=== PATIENT | female | born 1940 | race Caucasian/White ===

== ENCOUNTER 2017-11-10 12:47 | Inpatient (IN) ==
[2017-11-10 16:10] LABS: Basophils # (Auto) 0.1 K/mcL (0.0-0.3); Basophils % (Auto) 0.6 % (0.0-2.0); Eosinophils # (Auto) 0.3 K/mcL (0.0-0.7); Eosinophils % (Auto) 3.5 % (0.0-7.0); Granulocytes % (Auto) 59.2 % (38.0-78.0); Lymphocytes % (Auto) 30.7 % (15.5-49.0); Mean Cell Volume 90.6 fL (80.0-100.0); Mean Corpuscular HGB Conc 33.5 g/dL (31.0-36.0); Mean Corpuscular Hemoglobin 30.4 pg (26.0-34.0); Monocytes # (Auto) 0.6 K/mcL (0.1-0.9); Platelet Count 290 K/mcL (140-440); RBC 4.03 M/mcL (4.00-5.20); Red Cell Distribution Width 14.5 % (11.5-14.5)
[2017-11-10 16:50] LABS: ALT/SGPT 13 U/l (0-40); Albumin/Globulin Ratio 1.3 (1.0-2.3); Alkaline Phosphatase 137 U/L (39-117); Blood Urea Nitrogen 21 mg/dl (8-23)
[2017-11-10] MEDS ORDERED: PIPERACILLIN SODIUM/TAZOBACTAM 3.375 GM in DEXTROSE 5% IN WATER 50 ML IV SCH (17:00)
[2017-11-10] MEDS ORDERED: ACETAMINOPHEN 500 MG TABLET PO PRN (20:37)
[2017-11-10] MEDS ORDERED: HYDROcodone/APAP 5/325MG TABLET PO PRN (20:37)
--- NOTE | 2017-11-10 20:54 | Internal Medicine Consult Note ---
Medical - CN: HPI - Data of Consult Consult date: 11/10/17 Requesting Physician: Yanet Duarte Primary Care Provider: Lauren Casas MD Family Provider: ID DR Ninfa GAGE/REHAN - Consult Narrative Reason for consult: Medical Management History of present illness: Ms. Santoyo is a 77 year old F with h/o CAD/ AFib on pradaxa, h/o CHF, Obesity, admitted to the hospital for the right leg wound. The patient had h/o fall, in the bathroom last month, she was at [facility] for a unstable ankle fracture, she also had AFib with RVR during this episode The patient underwent open reduction and internal fixation of the right ankle fracture. The patient had a slow recovery it seems, hospitay stay also complicated with UTI. The patient at baseline is not very functional, poor balance, multiple falls, does nto ambulate much, attributes this to her Afib? The patient was eventually discharged back to a facility, it seems that post op no dressing changes were made as per patient. She developed the wound and was sent to the Wound care clinic for further evaluation. Admitted to the hospital from there The patient denies any acute complaints. CC: Yanet Duarte Review of systems: CONSTITUTIONAL: No weight loss, fever, chills, weakness or fatigue. HEENT: Eyes: No visual loss, blurred vision, double vision or yellow sclerae. Ears, Nose, Throat: No hearing loss, sneezing, congestion, runny nose or sore throat. SKIN: No rash or itching. CARDIOVASCULAR: No chest pain, chest pressure or chest discomfort. No palpitations or edema. RESPIRATORY: No shortness of breath, cough or sputum. GASTROINTESTINAL: No nausea, vomiting or diarrhea or constipation. No abdominal pain or blood in stools No Katia. GENITOURINARY: Denies Burning on urination. Blood in urine, or foul smelling urine NEUROLOGICAL: No headache, dizziness, syncope, paralysis, tremors, numbness or tingling in the extremities. No change in bowel or bladder control. MUSCULOSKELETAL: No muscle, back pain, joint pain or stiffness. HEMATOLOGIC: No bleeding or bruising. No enlarged nodes PSYCHIATRIC: No depression or anxiety. ENDOCRINOLOGIC: No reports of sweating, cold or heat intolerance. No polyuria or polydipsia. ALLERGIES: No hives, eczema or rhinitis. Skin: No rash, no jaundice, cyanosis or pallor. Medical - CN: H Medical history: PAST MEDICAL HISTORY: 1. obesity. 2. Recurrent episodes of hematuria, likely related to her recurrent bouts of urinary tract infections. 3. Recurrent urinary tract infections. 4. Restless leg syndrome. 5. Intertrigo. 6. Insomnia. 7. Prior episode of GI bleeding. 8. Reactive airways disease. 9. Esophageal stenosis. 10. Constipation. 11. Bilateral knee pain. 12. Osteoarthritis/degenerative joint disease. 13. Prior history of overdose with psychiatric hospitalizations. 14. Atrial fibrillation with a history of rapid ventricular response. 15. Congestive heart failure. 16. Peripheral vascular disease. 17. Diabetic polyneuropathy. 18. Depression. 19. Generalized anxiety disorder. 20. Type 2 diabetes mellitus. 21. Dyslipidemia. 22. Hypothyroidism. 23. Cardiac arrest associated with a hysterectomy. 24. Fatty liver infiltration. 25. Migraine headaches. 26. Gastroesophageal reflux disease. 27. Vertebral compression fracture. 28. Irritable bowel syndrome. 29. Diverticulosis with prior episodes of diverticulitis. 30. Urinary incontinence. 31. Coronary artery disease. 32. Candidal infection of the right breast and inguinal areas. 33. Anemia due to folic acid deficiency. 34. Edema. 35. Chronic pain. 36. Post-polio syndrome. 37. Personality disorder. 38. Fibromyalgia. 39. Childhood scarlet fever with a development of mitral valve prolapse. 40. Systemic lupus erythematosus. 41. Peptic ulcer disease. 42. Scleroderma. 43. Esophageal dyskinesia. 44. Vitamin D deficiency, nutritional in nature. Surgical history: 1. Status post vaginal cyst removal in 1970. 2. Left knee surgery in 1999. 3. Colonoscopies. 4. Bowel surgeries consisting of polypectomy and fissure repairs. 5. Total abdominal hysterectomy with bilateral salpingo-oophorectomy in 1975. 6. Cholecystectomy. 7. Tonsillectomy. 8. Breast cyst aspirations times 2. 9. Bilateral carpal tunnel releases. 10. Carpometacarpal joint surgery of the right hand. 11. Left hand surgery, unspecified. 12. Hemorrhoidectomy. 13. Cataract extracted in 2009. Family history: reviewed and not pertinent Social history: non smoker no etoh no recreational substance reported Medical - CN: Meds Home Medications Medication Instructions Recorded Confirmed Type ALPRAZolam [Xanax] 0.5 mg PO HS 11/10/17 11/10/17 History Acetaminophen [Shake That Ache] 500 mg PO Q4HP PRN 11/10/17 11/10/17 History Aspirin [Aspirin EC] 81 mg PO DAILY 11/10/17 11/10/17 History Benzonatate [Tessalon] 100 mg PO Q6HP PRN 11/10/17 11/10/17 History Cholecalciferol (Vitamin D3) 2,000 unit PO QAM 11/10/17 11/10/17 History [Vitamin D] Cyanocobalamin (Vitamin B-12) 1,000 mcg SL DAILY 11/10/17 11/10/17 History [Vitamin B-12] Dabigatran Etexilate Mesylate 150 mg PO BID 11/10/17 11/10/17 History [Pradaxa] Docusate Sodium [Colace] 100 mg PO QAM 11/10/17 11/10/17 History Ferrous Sulfate [Iron] 325 mg PO DAILY 11/10/17 11/10/17 History Folic Acid 1 mg PO DAILY 11/10/17 11/10/17 History Gabapentin 600 mg PO BID 11/10/17 11/10/17 History Gabapentin [Neurontin] 300 mg PO QNOON 11/10/17 11/10/17 History HYDROcodone/APAP 5/325MG [[place] 1 tab PO Q8HP PRN 11/10/17 11/10/17 History 5-325Mg] Inulin [Child's Fiber Select 1.5 gm PO QDAY 11/10/17 11/10/17 History Gummies] Levothyroxine [Synthroid] 75 mcg PO DAILY 11/10/17 11/10/17 History Loperamide [Imodium] 2 mg PO PRN PRN 11/10/17 11/10/17 History Magnesium Hydroxide [Milk of 30 ml PO DAILYP PRN 11/10/17 11/10/17 History Magnesia] Melatonin [Melatin] 3 mg PO HS 11/10/17 11/10/17 History Metoclopramide HCl [Metoclopramide 5 mg PO ACHS 11/10/17 11/10/17 History HCl Odt] Metoprolol Succinate [Toprol Xl] 25 mg PO DAILY 11/10/17 11/10/17 History Metoprolol Succinate [Toprol Xl] 100 mg PO QDAY 11/10/17 11/10/17 History Naproxen Sodium [All Day Pain 220 mg PO QDAY PRN 11/10/17 11/10/17 History Relief] Nortriptyline HCl [Pamelor] 150 mg PO HS 11/10/17 11/10/17 History Polyethylene Glycol 3350 [Miralax] 17 gm PO Q48 11/10/17 11/10/17 History Sodium Bicarbonate/Sodium Cit 2 each PO QDP PRN 11/10/17 11/10/17 History [[place] Heartburn Tab Eff] Spironolactone [Aldactone] 25 mg PO DAILY 11/10/17 11/10/17 History Vitamin E 200 unit PO DAILY 11/10/17 11/10/17 History guaiFENesin/D-METHORPHAN HB/PE 15 ml PO Q6HP PRN 11/10/17 11/10/17 History [Robafen Cf Liquid] Allergies Allergy/AdvReac Type Severity Reaction Status Date / Time atenolol [From Tenormin] Allergy Verified 11/10/17 16:46 ciprofloxacin [From Cipro] Allergy Verified 11/10/17 16:46 diltiazem [From Cardizem] Allergy Verified 11/10/17 16:46 meclizine Allergy Verified 11/10/17 16:46 morphine Allergy Verified 11/10/17 16:46 promethazine Allergy Verified 11/10/17 16:46 sulfamethoxazole Allergy Verified 11/10/17 16:46 [From Bactrim] trimethoprim [From Bactrim] Allergy Verified 11/10/17 16:46 acyclovir AdvReac Verified 11/10/17 16:46 nitrofurantoin AdvReac Verified 11/10/17 16:46 [From Macrobid] rosuvastatin [From Crestor] AdvReac Verified 11/10/17 16:46 Medical - CN: Exam - Constitutional Vitals: Temp Pulse Resp BP Pulse Ox 97.0 F 92 H 16 145/87 96 11/10/17 16:00 11/10/17 16:00 11/10/17 16:00 11/10/17 16:00 11/10/17 16:00 Exam: GENERAL: The patient is a well-developed, obese, well-nourished in no apparent distress. Is alert and oriented x3. VITAL SIGNS: Reviewed and as noted elsewhere. HEENT: Head is normocephalic and atraumatic. Extraocular muscles are intact. Pupils are equal, round, and reactive to light. Nares appeared normal. Mouth appears any without lesions. Mucous membranes are moist. NECK: Normal to inspection, Supple, No lymphadenopathy or thyromegaly. LUNGS: Air entry equal on both sides, no wheezing, crackles or rhonchi noted. No accessory muscles of respiration HEART: Regular rate and rhythm irregular, S1 and S2 heard, no Gallop, S3 or Rub Noted, No Gross murmur heard. ABDOMEN: Soft, nontender, and nondistended. Positive bowel sounds. No hepatosplenomegaly was noted. EXTREMITIES: No cyanosis, clubbing, rash, lesions or edema. (right foot covered in dressing, noted wound lower medial part). NEUROLOGIC: Cranial nerves II through XII are grossly intact. Motor and Sensory System Grossly Intact PSYCHIATRIC: Normal affect, Normal Mood. Appropriate Behavior. SKIN: No ulceration or wounds noted, No jaundice, No rash noted. Medical - CN: Result - Labs CBC & Chem 7: 11/10/17 15:40 11/10/17 15:40 Labs: Short CBC 11/10/17 Range/Units 15:40 WBC 9.9 (4.5-11.0) K/mcL Hgb 12.3 (12.0-15.0) g/dL Hct 36.5 (36.0-48.0) % Plt Count 290 (140-440) K/mcL BMP 11/10/17 15:40 Sodium 140 Potassium 4.0 Chloride 100 Carbon Dioxide 25 BUN 21 Creatinine 1.0 Glucose 95 Calcium 10.0 Liver Function 11/10/17 Range/Units 15:40 Total Bilirubin 0.4 (0.0-1.0) mg/dL AST 13 (0-37) U/l ALT 13 (0-40) U/l Alkaline Phosphatase 137 H (39-117) U/L Albumin 4.0 (3.2-5.2) gm/dL Medical - CN: A/P - Narrative A/P Narrative: A/P Right lower extremity wound- Management per Surgery/ Wound care Atrial fibrillation- rate controlled, c heck tsh, on pradaxa continue same, continue metoprolol for rate control, will use IV prn as needed CAD/CHF- on metoprolol, asa, and aldactone continue same, no active issues. DM- borderline diet controlled anxiety/depression- on xanax prn Lupus_ does not seem to be on any medication for same DM neuropathy/chr pain- continue home pain medications. Will follow along while in the hospital,
[2017-11-10] MEDS ORDERED: ALPRAZolam 0.5 MG TABLET PO SCH (21:00)
[2017-11-10] MEDS ORDERED: NORTRIPTYLINE 25 MG CAPSULE PO SCH (21:00)
[2017-11-10] MEDS ORDERED: MELATONIN 3 MG PO SCH (21:00)
[2017-11-10] MEDS: GABAPENTIN 300 MG CAPSULE PO SCH (21:40)
[2017-11-10] MEDS: DABIGATRAN ETEXILATE MESYLATE 75 MG CAPSULE PO SCH (21:41)
[2017-11-10] MEDS: METOCLOPRAMIDE 10 MG TABLET PO SCH (21:41)
[2017-11-10] MEDS: 0.9 % SODIUM CHLORIDE 10 ML SYRINGE IV SCH (21:43)
[2017-11-10] MEDS: PIPERACILLIN SODIUM/TAZOBACTAM 3.375 GM in DEXTROSE 5% IN WATER 50 ML IV SCH (23:32)
[2017-11-11] MEDS ORDERED: ONDANSETRON 4 MG/2 ML VIAL IV PRN ×3 (00:24→12:25)
[2017-11-11] MEDS ORDERED: ONDANSETRON 4 MG/2 ML VIAL ONE (00:32)
[2017-11-11 04:59] LABS: Basophils # (Auto) 0.1 K/mcL (0.0-0.3); Basophils % (Auto) 0.6 % (0.0-2.0); Eosinophils # (Auto) 0.3 K/mcL (0.0-0.7); Eosinophils % (Auto) 3.7 % (0.0-7.0); Lymphocytes # (Auto) 2.3 K/mcL (1.5-4.8); Lymphocytes % (Auto) 25.3 % (15.5-49.0); Mean Cell Volume 91.5 fL (80.0-100.0); Mean Corpuscular HGB Conc 33.4 g/dL (31.0-36.0); Mean Corpuscular Hemoglobin 30.6 pg (26.0-34.0); Monocytes # (Auto) 0.6 K/mcL (0.1-0.9); Monocytes % (Auto) 6.4 % (1.0-12.0); Platelet Count 269 K/mcL (140-440); RBC 3.66 M/mcL (4.00-5.20); Red Cell Distribution Width 14.7 % (11.5-14.5)
[2017-11-11] MEDS: PIPERACILLIN SODIUM/TAZOBACTAM 3.375 GM in DEXTROSE 5% IN WATER 50 ML IV SCH ×3 (06:02→22:05)
[2017-11-11] MEDS: 0.9 % SODIUM CHLORIDE 10 ML SYRINGE IV SCH ×3 (06:03→20:36)
--- NOTE | 2017-11-11 06:28 | General Surgery Progress Note ---
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 Chief Complaint: [] Patient resting in bed. No complaints overnight except pain in right lower leg at wound site. Vital Signs Temp Pulse Resp BP Pulse Ox 97.5 F 99 H 20 104/73 97 11/11/17 04:19 11/10/17 23:51 11/11/17 04:19 11/11/17 04:19 11/11/17 04:19 Period Temp Pulse Resp BP Sys/Ennis Pulse Ox Last 24 Hr 97.0 F-98.9 F 92-99 16-20 88-145/67-87 96-98 Intake and Output 11/10/17 11/11/17 11/11/17 21:59 05:59 13:59 Intake Total 410 / 410 50 / 50 Balance 410 / 410 50 / 50 Weight 219 lb 8 oz PE: No distress Chest: clear in upper echevarria CV: irregularly irregular EXT:Right lower medial leg CBC and Chem 7 11/11/17 04:15 A/P: Right lower extremity wound with overlying eschar and area of palpable fluctuance. Plan to OR for debridement of wound. Risks and benefits and alternatives to surgery reviewed with patient and she verbalizes understanding and wishes to proceed.
--- NOTE | 2017-11-11 07:27 | History and Physical Report ---
DATE OF ADMISSION: 11/10/2017 CHIEF COMPLAINT: Right lower extremity wound, failed outpatient treatment. HISTORY OF PRESENT ILLNESS: The patient is a 77-year-old woman who was seen in wound care clinic today in consultation for right lower extremity wound. The patient has a recent medical and surgical history significant for a right ankle fracture suffered on the or 01 of October this year. The patient was trying to get into her shower at which time she fell down and landed on her right ankle. When she was helped up evaluation at the long term showed that she clearly had a fracture of her ankle. She was transferred eventually to [facility] where she was seen and evaluated by Dr. Turpin and subsequently taken to the operating room on 10/03/2017 for open reduction and internal fixation of a bimalleolar fracture dislocation of the right ankle. The patient states that she was discharged from [facility] to a rehab care facility where she has been since her discharge. The patient was accompanied at the clinic visit by her daughter who also offered part of the history of current problem. The patient during her postoperative 2 weeks had not had any care done to her wounds and states that the dressing that was placed postoperatively remained in place. When she was seen in clinic in the orthopedist's office she was noted to have a large eschar on the medial aspect of the distal right lower leg. She was, at that visit told that she would be referred to wound care clinic urgently for evaluation and treatment. Unfortunately, there was some delay in getting the referral consultation visit set up and she was not seen until today at which time evaluation showed a large eschar with some localized cellulitis surrounding it in the area of the distal right lower leg medially. The patient has been on oral antibiotic therapy of doxycycline and cephalexin for this. She reports pain in the area of the wound. She denies chills or fever. She does report that she has been a weak. She has had in the postoperative boot on for most of the time since surgery and questions whether this may be contributing to the problem of her wound. Review of patient's previous records that accompany her at the clinic visit showed that Dr. Turpin noted a fracture blister on the distal medial tibia proximal to the medial malleolus at the time of presentation but no evidence of skin breakdown beyond the blister formation. PAST MEDICAL HISTORY: History of atrial fibrillation with rapid response, diabetes mellitus type 2, hypothyroidism, anxiety, hyperlipidemia, osteoarthritis, history of gastroesophageal reflux disease, history of urinary incontinence, hypothyroidism. PAST SURGICAL HISTORY: Total abdominal hysterectomy in 1975, cholecystectomy, tonsillectomy, bilateral carpal tunnel release, cataract surgery, hemorrhoidectomy. REVIEW OF SYSTEMS: CONSTITUTIONAL: Denies fevers or chills; reports general weakness. CARDIOVASCULAR: Reports history of atrial fibrillation with at times of fast heart rate. Denies any recent increases in heart rate or rapid heart rate since her ankle surgery. Denies chest pain or pressure. : Denies dysuria or hematuria. GI: No nausea or vomiting. Appetite is good. HEMATOLOGIC: The patient is currently on Pradaxa for treatment of her atrial fibrillation. ALLERGIES: MORPHINE, BACTRIM, PROMETHAZINE, CARDIZEM, TENORMIN, CIPROFLOXACIN, MECLIZINE, ACYCLOVIR, MACROBID, CRESTOR. MEDICATIONS: 1. Xanax 0.5 mg p.o. at bedtime. 2. Aspirin 81 mg daily. 3. Vitamin D3 2000 units q.a.m. 4. Vitamin B12 1000 mcg sublingual daily. 5. Pradaxa 150 mg p.o. b.i.d. 6. Colace 100 mg p.o. q.a.m. 7. Iron sulfate 325 mg daily. 8. Folate 100 mg daily. 9. Gabapentin 600 mg p.o. b.i.d. and 300 mg at noon. 10. [place] 5/325 mg #1tablet q.8 hours p.r.n. pain. 11. Synthroid 75 mcg daily. 12. Metoclopramide 5 mg at bedtime q.a.c. and at bedtime. 13. Metoprolol 100 mg p.o. every day and 25 mg every day. 14. Naprosyn 220 mg every day p.r.n. pain. 15. Pamelor 150 mg at bedtime. 16. MiraLax 17 grams p.o. q.48h. 17. Spironolactone 25 mg p.o. every day. PHYSICAL EXAMINATION: VITAL SIGNS: Temperature 97.0, pulse 92, respirations 16, blood pressure 145/87, O2 saturations are 96% on room air. GENERAL: The patient is a well-developed, well-nourished, obese, elderly woman who appears her stated age in no distress. HEENT: Head normocephalic. Sclerae are white. Mucous membranes are moist. CHEST: Breath sounds are clear bilaterally. No rales, wheezes are heard. CARDIOVASCULAR: Irregularly irregular rhythm, slightly tachycardic rate. ABDOMEN: Soft and nontender. EXTREMITIES: DP pulses are palpable bilaterally. There is a large wound on the distal right lower leg on the medial aspect just above the medial malleolar incision site. The incision itself is intact and appears to be healing well without sign of infection. On the area of the large wound there is an overlying eschar which in some areas feels firm and in other areas feels questionably fluctuant versus underlying subcutaneous fatty tissue. There is no active drainage coming from the edges of the wound, though a small amount of bleeding is noted in two areas with palpation of the eschar. Palpation of the area results in tenderness to the patient. The patient does also complain of pain in the area of her perez that has been progressive since surgery. There is a small amount of erythema surrounding the edges of the large wound that suggest localized cellulitis of the area. Wound edges are well demarcated and eschar overlying the wound appears to be a full thickness of the dermis. The patient is able to feel pressure beneath the eschar, but does not feel actual sensation to light touch on the eschar. ASSESSMENT AND PLAN: Right lower extremity wound of uncertain behavior. On examination, the area is tender. Questionable areas that by palpation suggest there could be underlying fluid collection kasandra abscess is not obvious on this clinical evaluation. Surrounding erythema suggests ongoing cellulitis despite oral medications that have been tried. Given the proximity of this wound to an area of recent fracture repair containing hardware there is concern that if there is underlying infection that is not appropriately addressed this could spread to the hardware that is present in the right ankle. Recommendation is that patient be started on IV antibiotics with plans for debridement of this wound to see if there is underlying ongoing infection that needs more aggressive manage rather than just topical wound care. I discussed this with the patient and her daughter was present throughout today's clinic visit. I also contacted Dr. Turpin, her orthopedic surgeon and discussed the case with him. He is in agreement with this plan. The patient is admitted for failed outpatient management of right lower extremity wound with plans to debride the area to define the full nature and character of this wound with subsequent plans for more definitive therapy. RC:callum Job ID: [id number] Doc ID: [id number] Yanet Duarte MD
[2017-11-11] MEDS: METOCLOPRAMIDE 10 MG TABLET PO SCH ×4 (07:29→20:34)
[2017-11-11] MEDS ORDERED: LEVOTHYROXINE 75 MCG TABLET PO SCH (07:30)
[2017-11-11] MEDS ORDERED: CYANOCOBALAMIN (VITAMIN B-12) 500 MCG TABLET PO SCH (09:00)
[2017-11-11] MEDS ORDERED: METOPROLOL SUCCINATE 50 MG TAB.XL.24H PO SCH (09:00)
[2017-11-11] MEDS ORDERED: SILVER SULFADIAZINE CREAM.TOP 25GM TOPICAL SCH (09:00)
[2017-11-11] MEDS ORDERED: FOLIC ACID 1 MG TABLET PO SCH (09:00)
[2017-11-11] MEDS ORDERED: SPIRONOLACTONE 25 MG TABLET PO SCH (09:00)
[2017-11-11] MEDS ORDERED: DOCUSATE SODIUM 100 MG CAPSULE PO SCH (09:00)
[2017-11-11] MEDS ORDERED: METOPROLOL SUCCINATE 25 MG TAB.XL.24H PO SCH (09:00)
[2017-11-11] MEDS ORDERED: ASPIRIN 81 MG TAB.CHEW PO SCH (09:00)
[2017-11-11] MEDS ORDERED: PROPOFOL 200 MG/20 ML VIAL IV ONE (09:55)
[2017-11-11] MEDS ORDERED: PHENYLEPHRINE 10 MG/ML VIAL IV ONE (09:55)
[2017-11-11] MEDS ORDERED: KETAMINE 100 MG/ML ML IV ONE (09:55)
[2017-11-11] MEDS ORDERED: METOPROLOL TARTRATE 5 MG/5 ML VIAL IV ONE (09:55)
[2017-11-11] MEDS ORDERED: fentaNYL 100 MCG/2 ML VIAL IV ONE (09:55)
[2017-11-11] MEDS ORDERED: DEXAMETHASONE 10 MG/ML VIAL IV ONE (09:55)
[2017-11-11] MEDS ORDERED: LIDOCAINE HCL/PF 100 MG/5 ML SYRINGE IV ONE (09:55)
[2017-11-11] MEDS ORDERED: ONDANSETRON 4 MG/2 ML VIAL IV ONE (09:55)
[2017-11-11] MEDS ORDERED: MIDAZOLAM 2 MG/2 ML VIAL IV ONE (09:55)
[2017-11-11] MEDS ORDERED: GLYCOPYRROLATE 0.2 MG/ML VIAL IV ONE (09:55)
--- NOTE | 2017-11-11 09:59 | XRay Report ---
HISTORY: Preop for ulcer in the right lower extremity FINDINGS: Heart is mild to moderately enlarged. The pulmonary vessels appear engorged. There are prominent lung markings are accentuated by scatter artifact created by superimposed fat in the chest wall. The lung findings are normal. There is no lobar consolidation or pleural effusion. No prior study is available for comparison. IMPRESSION: Cardiomegaly with mild pulmonary vascular congestion Interpreted and Authenticated by: Hal Rivera 11/11/17
[2017-11-11] MEDS ORDERED: IPRATROPIUM/ALBUTEROL 3 ML AMPUL.NEB NEB PRN (10:22)
[2017-11-11] MEDS ORDERED: LACTATED RINGERS 250 ML IV PRN (10:22)
[2017-11-11] MEDS ORDERED: NALOXONE HCL 0.4 MG/ML VIAL IV PRN (10:22)
[2017-11-11] MEDS ORDERED: BENZOCAINE/MENTHOL 1 LOZENGE PO PRN (10:22)
[2017-11-11] MEDS ORDERED: ACETAMINOPHEN 1,000 MG/100 ML BOTTLE IV ONE (10:22)
[2017-11-11] MEDS ORDERED: fentaNYL 100 MCG/2 ML VIAL IV PRN (10:22)
[2017-11-11] MEDS ORDERED: FLUMAZENIL 0.1 MG/ML ML IV PRN (10:22)
[2017-11-11] MEDS ORDERED: MEPERIDINE 25 MG/ML SYRINGE IV PRN (10:22)
[2017-11-11] MEDS ORDERED: LACTATED RINGERS 1,000 ML IV SCH (10:30)
[2017-11-11 10:40] LABS: ALT/SGPT 11 U/l (0-40); Albumin 3.5 gm/dL (3.2-5.2); Albumin/Globulin Ratio 1.3 (1.0-2.3); Alkaline Phosphatase 120 U/L (39-117); Bilirubin,Direct < 0.2 mg/dL (0.0-0.3); Blood Urea Nitrogen 23 mg/dl (8-23); Gamma Glutamyl Transpeptidase 198 U/L (5-36); Uric Acid 6.7 mg/dL (2.5-8.0)
[2017-11-11] MEDS ORDERED: GABAPENTIN 300 MG CAPSULE PO SCH (12:00)
[2017-11-11] MEDS: GABAPENTIN 300 MG CAPSULE PO SCH ×2 (12:02→20:34)
[2017-11-11] MEDS ORDERED: GABAPENTIN 300 MG CAPSULE PO ONE (12:59)
[2017-11-11] MEDS ORDERED: ASPIRIN 81 MG TAB.CHEW CHEWED ONE (13:04)
[2017-11-11] MEDS ORDERED: FOLIC ACID 1 MG TABLET PO ONE (13:04)
[2017-11-11] MEDS ORDERED: SPIRONOLACTONE 25 MG TABLET PO ONE (13:05)
[2017-11-11] MEDS: DABIGATRAN ETEXILATE MESYLATE 75 MG CAPSULE PO SCH ×2 (13:07→20:34)
[2017-11-11] MEDS ORDERED: CYANOCOBALAMIN (VITAMIN B-12) 500 MCG TABLET PO ONE (13:15)
[2017-11-11] MEDS: HYDROcodone/APAP 5/325MG TABLET PO PRN (13:16)
--- NOTE | 2017-11-11 14:41 | Internal Med Progress Note ---
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 Chief Complaint: [] Interval history: Ms. Santoyo is a 77 year old F with h/o CAD/ AFib on pradaxa, h/o CHF, Obesity, admitted to the hospital for the right leg wound. The patient had h/o fall, in the bathroom last month, she was at [facility] for a unstable ankle fracture, she also had AFib with RVR during this episode The patient underwent open reduction and internal fixation of the right ankle fracture. The patient had a slow recovery it seems, hospitay stay also complicated with UTI. The patient at baseline is not very functional, poor balance, multiple falls, does nto ambulate much, attributes this to her Afib? The patient was eventually discharged back to a facility, it seems that post op no dressing changes were made as per patient. She developed the wound and was sent to the Wound care clinic for further evaluation. Admitted to the hospital from there The patient denies any acute complaints. 11/11 Pt seen examined no acute issues s/p debridement today no events on tele, Pertinent ROS: Denies headache, dizziness Denies chest pain, palpitations Denies cough or shortness of breath Denies abdominal pain, nausea or vomiting. - Constitutional Vitals: Vital Signs Temp Pulse Resp BP Pulse Ox 98.1 F 108 H 18 119/64 97 11/11/17 11:53 11/11/17 11:27 11/11/17 12:31 11/11/17 12:31 11/11/17 12:31 Period Temp Pulse Resp BP Sys/Ennis Pulse Ox Last 24 Hr 97.0 F-98.9 F 92-114 8-20 88-145/55-93 94-100 Intake and Output 11/11/17 11/11/17 11/11/17 05:59 13:59 21:59 Intake Total 50 / 50 150 / 150 Balance 50 / 50 150 / 150 Intake & Output: Intake & Output 11/11/17 11/11/17 11/11/17 05:59 13:59 21:59 Intake Total 50 / 50 150 / 150 Balance 50 / 50 150 / 150 Intake: IV 50 / 50 150 / 150 Zosyn 3.375 gm In Dextrose 5% 50 / 50 50 / 50 in Water 50 ml @ 100 mls/hr IV Q8H [facility] Rx#:[id number] Other: # Bowel Movements 0 Exam: Constitutional; Afebrile, cooperative, alert, not in distress. Respiratory system: Air Entry equal on both sides, No crackles or wheezing, no rhonchi. CVS- Rate rhythm irregular, S1,S2 heard, no gallop, no rub. 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 Medical - PN: Obj Da - Labs CBC & Chem 7: 11/11/17 04:15 11/11/17 04:15 Labs: Abnormal Lab Results 11/11/17 11/11/17 11/10/17 04:15 04:15 15:40 RBC 3.66 L Hgb 11.2 L Hct 33.5 L RDW 14.7 H Glucose 110 H Phosphorus 5.6 H GGT 198 H Alkaline Phosphatase 120 H 137 H Triglycerides 245 H Meds: Medications Acetaminophen (Tylenol) 500 mg PO Q4HP PRN PRN Reason: Pain Hydrocodone Bitart/Acetaminophen ([place] 5/325mg) 1 tab PO Q8HP PRN PRN Reason: Pain Last Admin: 11/11/17 13:16 Dose: 1 tab Alprazolam (Xanax) 0.5 mg PO HS [facility] Aspirin (Aspirin) 81 mg PO DAILY [facility] Cyanocobalamin (Vitamin B-12) 1,000 mcg PO DAILY [facility] Dabigatran (Pradaxa) 150 mg PO BID [facility] Docusate Sodium (Colace) 100 mg PO QAM [facility] Ferrous Sulfate (Ferrous Sulfate) 325 mg PO DAILY@1730 [facility] Folic Acid (Folic Acid) 1 mg PO DAILY [facility] Gabapentin (Neurontin) 300 mg PO QNOON [facility] Gabapentin (Neurontin) 600 mg PO BID [facility] Piperacillin Sod/Tazobactam (Sod 3.375 gm/ Dextrose) 50 mls @ 100 mls/hr IV Q8H [facility] Last Admin: 11/11/17 14:12 Dose: 100 mls/hr Levothyroxine Sodium (Synthroid) 75 mcg PO QAMAC [facility] Metoclopramide HCl (Reglan) 5 mg PO ACHS [facility] Metoprolol Succinate (Toprol Xl) 100 mg PO DAILY [facility] Metoprolol Succinate (Toprol Xl) 25 mg PO DAILY [facility] Nortriptyline HCl (Pamelor) 150 mg PO HS [facility] Ondansetron HCl (Zofran) 4 mg IV Q4-6HP PRN PRN Reason: Nausea And Vomiting Melatonin 3 Mg Tab 1 dose PO HS [facility] Sodium Chloride (Saline Flush) 10 ml IV Q8 [facility] Last Admin: 11/11/17 14:12 Dose: 10 ml Spironolactone (Aldactone) 25 mg PO DAILY [facility] Medical - PN: A/P - Time Spent With Patient Total time spent is greater than 50% in coordination of care (as documented) at patient's floor/unit and/or counseling patient: - Narrative A/P Narrative: A/P Right lower extremity wound- Management per Surgery/ Wound care Atrial fibrillation- rate controlled,tsh wnl, on pradaxa continue same, continue metoprolol for rate control, will use IV prn as needed CAD/CHF- on metoprolol, asa, and Aldactone continue same, no active issues. CXR shows mild congestion. ? clinically not volume overloaded. avoid IVF DM- borderline diet controlled anxiety/depression- on xanax prn Lupus_ does not seem to be on any medication for same DM neuropathy/chr pain- continue home pain medications. Will follow along while in the hospital, Medical - PN: Qual - VTE Deep Vein Thrombosis/Pulmonary Embolism Present on Admission: No
[2017-11-11] MEDS: ACETAMINOPHEN 500 MG TABLET PO PRN (16:03)
[2017-11-11] MEDS ORDERED: FERROUS SULFATE 325 MG TABLET PO SCH (17:30)
[2017-11-11] MEDS: FERROUS SULFATE 325 MG TABLET PO SCH (17:33)
--- NOTE | 2017-11-11 17:59 | General Surgery Progress Note ---
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 Chief Complaint: [] Post Op visit. Ms. Santoyo is sitting up in bed eating dinner. No distress. Reports she has had some pain in the leg but this is controlled with pain medication. No chest pain or pressure. No palpitations Right leg dressing intact without drainage. Orthopedic boot on for patient comfort. A/P: s/p right lower leg wound debridement. stable post op. Afib: will restart pradaxa (this morning's dose was held before surgery).
[2017-11-11] MEDS ORDERED: ALPRAZolam 0.5 MG TABLET PO SCH (21:00)
[2017-11-11] MEDS ORDERED: NORTRIPTYLINE 25 MG CAPSULE PO SCH (21:00)
[2017-11-12] MEDS: PIPERACILLIN SODIUM/TAZOBACTAM 3.375 GM in DEXTROSE 5% IN WATER 50 ML IV SCH ×3 (05:35→21:07)
[2017-11-12] MEDS: 0.9 % SODIUM CHLORIDE 10 ML SYRINGE IV SCH ×3 (05:36→21:02)
[2017-11-12 05:58] LABS: Basophils # (Auto) 0 K/mcL (0.0-0.3); Basophils % (Auto) 0.2 % (0.0-2.0); Eosinophils # (Auto) 0 K/mcL (0.0-0.7); Eosinophils % (Auto) 0.1 % (0.0-7.0); Granulocytes % (Auto) 77.6 % (38.0-78.0); Lymphocytes # (Auto) 1.7 K/mcL (1.5-4.8); Lymphocytes % (Auto) 18.1 % (15.5-49.0); Mean Corpuscular Hemoglobin 31.3 pg (26.0-34.0); Monocytes # (Auto) 0.4 K/mcL (0.1-0.9); Platelet Count 262 K/mcL (140-440); RBC 3.43 M/mcL (4.00-5.20); Red Cell Distribution Width 14.7 % (11.5-14.5)
[2017-11-12 06:43] LABS: ALT/SGPT 21 U/l (0-40); Albumin 3.4 gm/dL (3.2-5.2); Albumin/Globulin Ratio 1.3 (1.0-2.3); Alkaline Phosphatase 125 U/L (39-117); Bilirubin,Direct < 0.2 mg/dL (0.0-0.3); Blood Urea Nitrogen 21 mg/dl (8-23); Gamma Glutamyl Transpeptidase 242 U/L (5-36); Uric Acid 5.3 mg/dL (2.5-8.0)
--- NOTE | 2017-11-12 06:56 | General Surgery Progress Note ---
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 Chief Complaint: [] Vital Signs Temp Pulse Resp BP Pulse Ox 98.2 F 103 H 18 105/64 92 11/12/17 04:00 11/12/17 04:00 11/12/17 04:00 11/12/17 04:00 11/12/17 04:00 Period Temp Pulse Resp BP Sys/Ennis Pulse Ox Last 24 Hr 97.2 F-98.8 F 97-114 8-20 97-129/55-93 91-100 Intake and Output 11/11/17 11/12/17 11/12/17 21:59 05:59 13:59 Intake Total 50 / 50 100 / 100 Output Total 101 / 101 Balance -51 / -51 100 / 100 Weight 225 lb PE: No distress. A&O Chest: clear bilaterally CV: irregularly irregular EXT: right leg wound bed with some dried blood on surface but clean. Moderate discharge on dressing from surgery. Surrounding erythema decreased and now appears mainly reactive. Size of wound stable. CBC and Chem 7 11/12/17 03:55 11/12/17 03:55 A/P: right lower leg wound s/p debridement. Awaiting wound cultures. Start Mist therapy with Vosh and silver alginate dressing for now. Consider VAC therapy in future if cultures return no infection.
[2017-11-12] MEDS ORDERED: LEVOTHYROXINE 75 MCG TABLET PO SCH (07:30)
[2017-11-12] MEDS: HYDROcodone/APAP 5/325MG TABLET PO PRN (07:43)
[2017-11-12] MEDS: METOCLOPRAMIDE 10 MG TABLET PO SCH ×4 (07:43→21:02)
[2017-11-12] MEDS ORDERED: DOCUSATE SODIUM 100 MG CAPSULE PO SCH (09:00)
[2017-11-12] MEDS ORDERED: METOPROLOL SUCCINATE 25 MG TAB.XL.24H PO SCH (09:00)
[2017-11-12] MEDS ORDERED: FOLIC ACID 1 MG TABLET PO SCH (09:00)
[2017-11-12] MEDS ORDERED: ASPIRIN 81 MG TAB.CHEW PO SCH (09:00)
[2017-11-12] MEDS ORDERED: CYANOCOBALAMIN (VITAMIN B-12) 500 MCG TABLET PO SCH (09:00)
[2017-11-12] MEDS ORDERED: SPIRONOLACTONE 25 MG TABLET PO SCH (09:00)
[2017-11-12] MEDS ORDERED: METOPROLOL SUCCINATE 50 MG TAB.XL.24H PO SCH (09:00)
[2017-11-12] MEDS: GABAPENTIN 300 MG CAPSULE PO SCH ×2 (10:14→21:00)
[2017-11-12] MEDS: DABIGATRAN ETEXILATE MESYLATE 75 MG CAPSULE PO SCH ×2 (10:14→21:00)
[2017-11-12] MEDS ORDERED: GABAPENTIN 300 MG CAPSULE PO SCH (12:00)
[2017-11-12] MEDS ORDERED: CYANOCOBALAMIN (VITAMIN B-12) 500 MCG TABLET PO ONE (13:06)
[2017-11-12] MEDS: ACETAMINOPHEN 500 MG TABLET PO PRN (14:47)
--- NOTE | 2017-11-12 15:29 | Internal Med Progress Note ---
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 Chief Complaint: [] Interval history: Ms. Santoyo is a 77 year old F with h/o CAD/ AFib on pradaxa, h/o CHF, Obesity, admitted to the hospital for the right leg wound. The patient had h/o fall, in the bathroom last month, she was at [facility] for a unstable ankle fracture, she also had AFib with RVR during this episode The patient underwent open reduction and internal fixation of the right ankle fracture. The patient had a slow recovery it seems, hospitay stay also complicated with UTI. The patient at baseline is not very functional, poor balance, multiple falls, does nto ambulate much, attributes this to her Afib? The patient was eventually discharged back to a facility, it seems that post op no dressing changes were made as per patient. She developed the wound and was sent to the Wound care clinic for further evaluation. Admitted to the hospital from there The patient denies any acute complaints. 11/11 Pt seen examined no acute issues s/p debridement today no events on tele, 11/12 Pt seen examined, no acute issues, hemodynamically stable no events on tele, chr afib noted ok to xfer to med surg status. Pertinent ROS: Denies headache, dizziness Denies chest pain, palpitations Denies cough or shortness of breath Denies abdominal pain, nausea or vomiting. - Constitutional Vitals: Vital Signs Temp Pulse Resp BP Pulse Ox 97.9 F 91 H 18 102/58 98 11/12/17 12:15 11/12/17 12:15 11/12/17 12:15 11/12/17 12:15 11/12/17 12:15 Period Temp Pulse Resp BP Sys/Ennis Pulse Ox Last 24 Hr 97.2 F-99 F 91-103 18-20 100-110/56-74 91-98 Intake and Output 11/12/17 11/12/17 11/12/17 05:59 13:59 21:59 Intake Total 100 / 100 890 / 890 50 / 50 Output Total 200 / 200 Balance 100 / 100 690 / 690 50 / 50 Weight 225 lb Patient Weight 11/13/17 05:59 Weight 225 lb Intake & Output: Intake & Output 11/12/17 11/12/17 11/12/17 05:59 13:59 21:59 Intake Total 100 / 100 890 / 890 50 / 50 Output Total 200 / 200 Balance 100 / 100 690 / 690 50 / 50 Weight 225 lb Intake: IV 50 / 50 50 / 50 50 / 50 Zosyn 3.375 gm In Dextrose 5% 50 / 50 50 / 50 50 / 50 in Water 50 ml @ 100 mls/hr IV Q8H [facility] Rx#:[id number] Oral 50 / 50 840 / 840 Output: Void Amount 200 / 200 Other: Meal Lunch Percent of Meal Consumed 90% Feeding Ability Assist with Tray Set Up Urine Color Dark Yellow Bright Yellow Urine Odor Strong Strong # Voids 1 Exam: Constitutional; Afebrile, cooperative, alert, not in distress. Respiratory system: Air Entry equal on both sides, No crackles or wheezing, no rhonchi. CVS- Rate rhythm irregular, S1,S2 heard, no gallop, no rub. 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 Medical - PN: Obj Da - Labs CBC & Chem 7: 11/12/17 03:55 11/12/17 03:55 Labs: Abnormal Lab Results 11/12/17 11/12/17 11/11/17 03:55 03:55 04:15 RBC 3.43 L Hgb 10.7 L Hct 31.5 L RDW 14.7 H Glucose 142 H 110 H Phosphorus 5.6 H GGT 242 H 198 H Alkaline Phosphatase 125 H 120 H Triglycerides 188 H 245 H 11/11/17 11/10/17 04:15 15:40 RBC 3.66 L Hgb 11.2 L Hct 33.5 L RDW 14.7 H Glucose Phosphorus GGT Alkaline Phosphatase 137 H Triglycerides Meds: Medications Acetaminophen (Tylenol) 500 mg PO Q4HP PRN PRN Reason: Pain Last Admin: 11/12/17 14:47 Dose: 500 mg Hydrocodone Bitart/Acetaminophen ([place]terling 5/325mg) 1 tab PO Q8HP PRN PRN Reason: Pain Last Admin: 11/12/17 07:43 Dose: 1 tab Alprazolam (Xanax) 0.5 mg PO HS [facility] Last Admin: 11/11/17 20:34 Dose: 0.5 mg Aspirin (Aspirin) 81 mg PO DAILY [facility] Last Admin: 11/12/17 10:12 Dose: 81 mg Cyanocobalamin (Vitamin B-12) 1,000 mcg PO DAILY [facility] Last Admin: 11/12/17 10:13 Dose: 1,000 mcg Dabigatran (Pradaxa) 150 mg PO BID [facility] Last Admin: 11/12/17 10:14 Dose: 150 mg Docusate Sodium (Colace) 100 mg PO QAM [facility] Last Admin: 11/12/17 10:12 Dose: 100 mg Ferrous Sulfate (Ferrous Sulfate) 325 mg PO DAILY@1730 [facility] Last Admin: 11/11/17 17:33 Dose: 325 mg Folic Acid (Folic Acid) 1 mg PO DAILY [facility] Last Admin: 11/12/17 10:13 Dose: 1 mg Gabapentin (Neurontin) 300 mg PO QNOON [facility] Last Admin: 11/12/17 12:07 Dose: 300 mg Gabapentin (Neurontin) 600 mg PO BID [facility] Last Admin: 11/12/17 10:14 Dose: 600 mg Piperacillin Sod/Tazobactam (Sod 3.375 gm/ Dextrose) 50 mls @ 100 mls/hr IV Q8H [facility] Last Infusion: 11/12/17 14:45 Dose: Infused Levothyroxine Sodium (Synthroid) 75 mcg PO QAMAC [facility] Last Admin: 11/12/17 07:43 Dose: 75 mcg Metoclopramide HCl (Reglan) 5 mg PO ACHS [facility] Last Admin: 11/12/17 12:07 Dose: 5 mg Metoprolol Succinate (Toprol Xl) 100 mg PO DAILY [facility] Last Admin: 11/12/17 10:13 Dose: 100 mg Metoprolol Succinate (Toprol Xl) 25 mg PO DAILY [facility] Last Admin: 11/12/17 10:13 Dose: 25 mg Melatonin 3 Mg Tab 1 dose PO HS [facility] Nortriptyline HCl (Pamelor) 150 mg PO HS [facility] Last Admin: 11/11/17 20:33 Dose: 150 mg Ondansetron HCl (Zofran) 4 mg IV Q4-6HP PRN PRN Reason: Nausea And Vomiting Sodium Chloride (Saline Flush) 10 ml IV Q8 [facility] Last Admin: 11/12/17 13:59 Dose: 10 ml Spironolactone (Aldactone) 25 mg PO DAILY [facility] Last Admin: 11/12/17 10:12 Dose: 25 mg Medical - PN: A/P - Time Spent With Patient Total time spent is greater than 50% in coordination of care (as documented) at patient's floor/unit and/or counseling patient: - Narrative A/P Narrative: A/P Right lower extremity wound- Management per Surgery/ Wound care Atrial fibrillation- rate controlled,tsh wnl, on pradaxa continue same, continue metoprolol for rate control, will use IV prn as needed, so far rate is reasonably controlled. CAD/CHF- on metoprolol, asa, and Aldactone continue same, no active issues. CXR shows mild congestion. ? clinically not volume overloaded. avoid IVF DM- borderline diet controlled anxiety/depression- on xanax prn Lupus_ does not seem to be on any medication for same DM neuropathy/chr pain- continue home pain medications. Will follow along while in the hospital, Medical - PN: Qual - VTE Deep Vein Thrombosis/Pulmonary Embolism Present on Admission: No
[2017-11-12] MEDS: FERROUS SULFATE 325 MG TABLET PO SCH ×2 (17:16→17:22)
[2017-11-12] MEDS ORDERED: ONDANSETRON 4 MG/2 ML VIAL IV PRN (17:21)
[2017-11-12] MEDS: ALPRAZolam 0.5 MG TABLET PO SCH (21:01)
[2017-11-12] MEDS: NORTRIPTYLINE 25 MG CAPSULE PO SCH (21:01)
[2017-11-13] MEDS: 0.9 % SODIUM CHLORIDE 10 ML SYRINGE IV SCH ×3 (05:54→20:49)
[2017-11-13] MEDS: PIPERACILLIN SODIUM/TAZOBACTAM 3.375 GM in DEXTROSE 5% IN WATER 50 ML IV SCH ×3 (05:54→20:49)
[2017-11-13] MEDS: LEVOTHYROXINE 75 MCG TABLET PO SCH (06:42)
[2017-11-13] MEDS: METOCLOPRAMIDE 10 MG TABLET PO SCH ×4 (06:42→20:49)
[2017-11-13] MEDS: HYDROcodone/APAP 5/325MG TABLET PO PRN (06:42)
--- NOTE | 2017-11-13 08:56 | General Surgery Progress Note ---
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 Chief Complaint: [] Patient resting in bed. Reports no significant pain at right leg wound site. Vital Signs Temp Pulse Resp BP Pulse Ox 97.5 F 86 20 99/62 92 11/13/17 07:29 11/13/17 04:00 11/13/17 07:29 11/13/17 07:29 11/13/17 07:29 Period Temp Pulse Resp BP Sys/Ennis Pulse Ox Last 24 Hr 97.2 F-98.8 F 75-94 14-20 99-113/58-70 92-98 Intake and Output 11/12/17 11/13/17 11/13/17 21:59 05:59 13:59 Intake Total 460 / 460 150 / 150 50 / 50 Output Total 151 / 151 Balance 309 / 309 150 / 150 50 / 50 Weight 227 lb 8 oz PE: No distress. A&Ox3 and appropriate in conversation. Chest: clear in upper [place] bilaterally CV: irregularly irregular EXT: right lower extremity wound with moderated drainage on dressing. Wound bed clean with healthy underlying tissue: some granulation presenting. CBC and Chem 7 11/12/17 03:55 11/12/17 03:55 A/P: Right lower leg wound with full thickness skin loss. Wound bed clean. Wound cultures show no organisms. Drainage likely from underlying edema of leg. Will place wound VAC today to see how tolerated.
[2017-11-13] MEDS: DABIGATRAN ETEXILATE MESYLATE 75 MG CAPSULE PO SCH ×2 (09:33→20:48)
[2017-11-13] MEDS: METOPROLOL SUCCINATE 50 MG TAB.XL.24H PO SCH (09:33)
[2017-11-13] MEDS: METOPROLOL SUCCINATE 25 MG TAB.XL.24H PO SCH (09:34)
[2017-11-13] MEDS: ASPIRIN 81 MG TAB.CHEW PO SCH (09:34)
[2017-11-13] MEDS: FOLIC ACID 1 MG TABLET PO SCH (09:34)
[2017-11-13] MEDS: GABAPENTIN 300 MG CAPSULE PO SCH ×3 (09:34→20:48)
[2017-11-13] MEDS: SPIRONOLACTONE 25 MG TABLET PO SCH (09:34)
[2017-11-13] MEDS: CYANOCOBALAMIN (VITAMIN B-12) 500 MCG TABLET PO SCH (09:36)
[2017-11-13] MEDS: DOCUSATE SODIUM 100 MG CAPSULE PO SCH (09:36)
--- NOTE | 2017-11-13 12:58 | Internal Med Progress Note ---
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 Chief Complaint: [] Interval history: Ms. Santoyo is a 77 year old F with h/o CAD/ AFib on pradaxa, h/o CHF, Obesity, admitted to the hospital for the right leg wound. The patient had h/o fall, in the bathroom last month, she was at [facility] for a unstable ankle fracture, she also had AFib with RVR during this episode The patient underwent open reduction and internal fixation of the right ankle fracture. The patient had a slow recovery it seems, hospitay stay also complicated with UTI. The patient at baseline is not very functional, poor balance, multiple falls, does nto ambulate much, attributes this to her Afib? The patient was eventually discharged back to a facility, it seems that post op no dressing changes were made as per patient. She developed the wound and was sent to the Wound care clinic for further evaluation. Admitted to the hospital from there The patient denies any acute complaints. 11/11 Pt seen examined no acute issues s/p debridement today no events on tele, 11/12 Pt seen examined, no acute issues, hemodynamically stable no events on tele, chr afib noted ok to xfer to med surg status 11/13 p[t seen examined hemodynamically stable no acute complauints wound vac placed today Pertinent ROS: Denies headache, dizziness Denies chest pain, palpitations Denies cough or shortness of breath Denies abdominal pain, nausea or vomiting. - Constitutional Vitals: Vital Signs Temp Pulse Resp BP Pulse Ox 98.7 F 87 20 111/65 98 11/13/17 11:57 11/13/17 09:05 11/13/17 11:57 11/13/17 11:57 11/13/17 11:57 Period Temp Pulse Resp BP Sys/Ennis Pulse Ox Last 24 Hr 97.2 F-98.8 F 75-94 14-20 99-147/62-70 92-98 Intake and Output 11/12/17 11/13/17 11/13/17 21:59 05:59 13:59 Intake Total 460 / 460 150 / 150 170 / 170 Output Total 151 / 151 476 / 476 Balance 309 / 309 150 / 150 -306 / -306 Weight 227 lb 8 oz Intake & Output: Intake & Output 11/12/17 11/13/17 11/13/17 21:59 05:59 13:59 Intake Total 460 / 460 150 / 150 170 / 170 Output Total 151 / 151 476 / 476 Balance 309 / 309 150 / 150 -306 / -306 Weight 227 lb 8 oz Intake: IV 100 / 100 50 / 50 Zosyn 3.375 gm In Dextrose 5% 100 / 100 50 / 50 in Water 50 ml @ 100 mls/hr IV Q8H [facility] Rx#:[id number] Oral 360 / 360 150 / 150 120 / 120 Output: Void Amount 150 / 150 475 / 475 # of times incontinent of urine Other: Meal Dinner Lunch Percent of Meal Consumed 75% 50% Feeding Ability Independent Urine Appearance Cloudy Urine Color Bright Yellow Dark Rosaura Urine Odor Strong # Voids 1 Exam: Constitutional; Afebrile, cooperative, alert, not in distress. Respiratory system: Air Entry equal on both sides, No crackles or wheezing, no rhonchi. CVS- Rate rhythm regular, S1,S2 heard, no gallop, no rub. 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 Medical - PN: Obj Da - Labs CBC & Chem 7: 11/12/17 03:55 11/12/17 03:55 Labs: Abnormal Lab Results 11/12/17 11/12/17 11/11/17 03:55 03:55 04:15 RBC 3.43 L Hgb 10.7 L Hct 31.5 L RDW 14.7 H Glucose 142 H 110 H Phosphorus 5.6 H GGT 242 H 198 H Alkaline Phosphatase 125 H 120 H Triglycerides 188 H 245 H 11/11/17 11/10/17 04:15 15:40 RBC 3.66 L Hgb 11.2 L Hct 33.5 L RDW 14.7 H Glucose Phosphorus GGT Alkaline Phosphatase 137 H Triglycerides Meds: Medications Acetaminophen (Tylenol) 500 mg PO Q4HP PRN PRN Reason: Pain Hydrocodone Bitart/Acetaminophen ([place] 5/325mg) 1 tab PO Q8HP PRN PRN Reason: Pain Last Admin: 11/13/17 06:42 Dose: 1 tab Alprazolam (Xanax) 0.5 mg PO HS [facility] Last Admin: 11/12/17 21:01 Dose: 0.5 mg Aspirin (Aspirin) 81 mg PO DAILY [facility] Last Admin: 11/13/17 09:34 Dose: 81 mg Cyanocobalamin (Vitamin B-12) 1,000 mcg PO DAILY [facility] Last Admin: 11/13/17 09:36 Dose: 1,000 mcg Dabigatran (Pradaxa) 150 mg PO BID [facility] Last Admin: 11/13/17 09:33 Dose: 150 mg Docusate Sodium (Colace) 100 mg PO QAM [facility] Last Admin: 11/13/17 09:36 Dose: 100 mg Ferrous Sulfate (Ferrous Sulfate) 325 mg PO DAILY@1730 [facility] Last Admin: 11/12/17 17:22 Dose: Not Given Folic Acid (Folic Acid) 1 mg PO DAILY [facility] Last Admin: 11/13/17 09:34 Dose: 1 mg Gabapentin (Neurontin) 300 mg PO QNOON [facility] Last Admin: 11/13/17 11:54 Dose: 300 mg Gabapentin (Neurontin) 600 mg PO BID [facility] Last Admin: 11/13/17 09:34 Dose: 600 mg Piperacillin Sod/Tazobactam (Sod 3.375 gm/ Dextrose) 50 mls @ 100 mls/hr IV Q8H [facility] Last Infusion: 11/13/17 06:24 Dose: Infused Levothyroxine Sodium (Synthroid) 75 mcg PO QAMAC [facility] Last Admin: 11/13/17 06:42 Dose: 75 mcg Metoclopramide HCl (Reglan) 5 mg PO ACHS [facility] Last Admin: 11/13/17 11:55 Dose: 5 mg Metoprolol Succinate (Toprol Xl) 100 mg PO DAILY [facility] Last Admin: 11/13/17 09:33 Dose: 100 mg Metoprolol Succinate (Toprol Xl) 25 mg PO DAILY [facility] Last Admin: 11/13/17 09:34 Dose: 25 mg Melatonin 3 Mg Tab 1 dose PO HS [facility] Last Admin: 11/12/17 21:01 Dose: 1 dose Nortriptyline HCl (Pamelor) 150 mg PO HS [facility] Last Admin: 11/12/17 21:01 Dose: 150 mg Ondansetron HCl (Zofran) 4 mg IV Q4-6HP PRN PRN Reason: Nausea And Vomiting Sodium Chloride (Saline Flush) 10 ml IV Q8 [facility] Last Admin: 11/13/17 05:54 Dose: 10 ml Spironolactone (Aldactone) 25 mg PO DAILY [facility] Last Admin: 11/13/17 09:34 Dose: 25 mg Medical - PN: A/P - Time Spent With Patient Total time spent is greater than 50% in coordination of care (as documented) at patient's floor/unit and/or counseling patient: - Narrative A/P Narrative: A/P Right lower extremity wound- Management per Surgery/ Wound care/ wound vac today Atrial fibrillation- rate controlled,tsh wnl, on pradaxa continue same, continue metoprolol for rate control, CAD/CHF- on metoprolol, asa, and Aldactone continue same, no active issues. CXR shows mild congestion. ? clinically not volume overloaded. avoid IVF DM- borderline diet controlled anxiety/depression- on xanax prn Lupus_ does not seem to be on any medication for same DM neuropathy/chr pain- continue home pain medications. Will follow along while in the hospital, No change in plan, can continue same medications as before at discharge. Medical - PN: Qual - VTE Deep Vein Thrombosis/Pulmonary Embolism Present on Admission: No
[2017-11-13] MEDS: ACETAMINOPHEN 500 MG TABLET PO PRN ×2 (14:24→20:48)
[2017-11-13] MEDS: FERROUS SULFATE 325 MG TABLET PO SCH (16:54)
[2017-11-13] MEDS: ALPRAZolam 0.5 MG TABLET PO SCH (20:48)
[2017-11-13] MEDS: NORTRIPTYLINE 25 MG CAPSULE PO SCH (20:48)
[2017-11-14] MEDS: PIPERACILLIN SODIUM/TAZOBACTAM 3.375 GM in DEXTROSE 5% IN WATER 50 ML IV SCH ×3 (04:50→20:44)
[2017-11-14] MEDS: 0.9 % SODIUM CHLORIDE 10 ML SYRINGE IV SCH ×3 (04:50→20:44)
[2017-11-14] MEDS: METOCLOPRAMIDE 10 MG TABLET PO SCH ×3 (09:07→17:27)
[2017-11-14] MEDS: LEVOTHYROXINE 75 MCG TABLET PO SCH (09:07)
--- NOTE | 2017-11-14 11:08 | General Surgery Progress Note ---
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 Chief Complaint: [] Ms. Santoyo is resting in bed. Says she is feeling well. Denies pain at her wound site; VAC is not bothering her. Vital Signs Temp Pulse Resp BP Pulse Ox 96.9 F L 84 14 146/76 94 11/14/17 07:09 11/14/17 07:29 11/14/17 07:09 11/14/17 07:09 11/14/17 07:09 Period Temp Pulse Resp BP Sys/Ennis Pulse Ox Last 24 Hr 96.9 F-98.7 F 84-98 14-20 111-146/61-86 91-98 Intake and Output 11/13/17 11/14/17 11/14/17 21:59 05:59 13:59 Intake Total 520 / 520 Output Total 200 / 200 Balance 520 / 520 -200 / -200 Weight 229 lb 8 oz 229 lb 8 oz Patient Weight 11/15/17 05:59 Weight 229 lb 8 oz PE: No distress Chest: clear. no accessory muscle use. CV: irregularly irregular rhythm EXT: focused exam of right lower extremity shows VAC sponge appropriately suctioned. Small amount of drainage in canister. Dressing removed and underlying wound bed clean with granulation on full surface. No exudate. VAC dressing reapplied. A/P: right lower leg wound s/p debridement. Doing well and tolerating VAC therapy. Next dressing change can be on Thursday. Plan continued VAC therapy in SNF where she will continue her rehab for ankle fracture. Awaiting SNF's acquisition of VAC device for transfer back to rehab.
--- NOTE | 2017-11-14 11:40 | Internal Med Progress Note ---
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 Chief Complaint: [] Interval history: Ms. Santoyo is a 77 year old F with h/o CAD/ AFib on pradaxa, h/o CHF, Obesity, admitted to the hospital for the right leg wound. The patient had h/o fall, in the bathroom last month, she was at [facility] for a unstable ankle fracture, she also had AFib with RVR during this episode The patient underwent open reduction and internal fixation of the right ankle fracture. The patient had a slow recovery it seems, hospitay stay also complicated with UTI. The patient at baseline is not very functional, poor balance, multiple falls, does nto ambulate much, attributes this to her Afib? The patient was eventually discharged back to a facility, it seems that post op no dressing changes were made as per patient. She developed the wound and was sent to the Wound care clinic for further evaluation. Admitted to the hospital from there The patient denies any acute complaints. 11/11 Pt seen examined no acute issues s/p debridement today no events on tele, 11/12 Pt seen examined, no acute issues, hemodynamically stable no events on tele, chr afib noted ok to xfer to med surg status 11/13 p[t seen examined hemodynamically stable no acute complauints wound vac placed today 11/14 Patient seen and examined, no acute overnight events, tolerating p.o. diet well. Lab studies are stable. Patient has no acute complaints Pertinent ROS: Denies headache, dizziness Denies chest pain, palpitations Denies cough or shortness of breath Denies abdominal pain, nausea or vomiting. - Constitutional Vitals: Vital Signs Temp Pulse Resp BP Pulse Ox 96.9 F L 84 14 146/76 94 11/14/17 07:09 11/14/17 07:29 11/14/17 07:09 11/14/17 07:09 11/14/17 07:09 Period Temp Pulse Resp BP Sys/Ennis Pulse Ox Last 24 Hr 96.9 F-98.7 F 84-98 14-20 111-146/61-86 91-98 Intake and Output 11/13/17 11/14/17 11/14/17 21:59 05:59 13:59 Intake Total 520 / 520 Output Total 200 / 200 Balance 520 / 520 -200 / -200 Weight 229 lb 8 oz 229 lb 8 oz Patient Weight 11/15/17 05:59 Weight 229 lb 8 oz Intake & Output: Intake & Output 11/13/17 11/14/17 11/14/17 21:59 05:59 13:59 Intake Total 520 / 520 Output Total 200 / 200 Balance 520 / 520 -200 / -200 Weight 229 lb 8 oz 229 lb 8 oz Intake: IV 100 / 100 Zosyn 3.375 gm In Dextrose 5% 100 / 100 in Water 50 ml @ 100 mls/hr IV Q8H [facility] Rx#:[id number] Oral 420 / 420 Output: Void Amount 200 / 200 Other: Meal Dinner Breakfast Percent of Meal Consumed 25% 100% Feeding Ability Assist with Tray Set Up Assist with Tray Set Up Urine Color Dark Yellow Stool Size Large Large Stool Color Brown Brown Black Stool Consistency Soft Loose Loose # Voids 1 1 # Bowel Movements 1 1 # of times incontinent of 0 Bowels Exam: Constitutional; Afebrile, cooperative, alert, not in distress. Eyes- No icterus, , No periorbital swelling Ears- Ext ear normal, hearing normal to conversation. Neck- Midline trachea, supple Respiratory system: Air Entry equal on both sides, No crackles or wheezing, no rhonchi. CVS- Rate rhythm irregular, S1,S2 heard, no gallop, no rub. 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 Medical - PN: Obj Da - Labs CBC & Chem 7: 11/12/17 03:55 11/12/17 03:55 Labs: Abnormal Lab Results 11/12/17 11/12/17 03:55 03:55 RBC 3.43 L Hgb 10.7 L Hct 31.5 L RDW 14.7 H Glucose 142 H GGT 242 H Alkaline Phosphatase 125 H Triglycerides 188 H Meds: Medications Acetaminophen (Tylenol) 500 mg PO Q4HP PRN PRN Reason: Pain Last Admin: 11/13/17 20:48 Dose: 500 mg Hydrocodone Bitart/Acetaminophen ([place] 5/325mg) 1 tab PO Q8HP PRN PRN Reason: Pain Last Admin: 11/13/17 06:42 Dose: 1 tab Alprazolam (Xanax) 0.5 mg PO HS [facility] Last Admin: 11/13/17 20:48 Dose: 0.5 mg Aspirin (Aspirin) 81 mg PO DAILY [facility] Last Admin: 11/13/17 09:34 Dose: 81 mg Cyanocobalamin (Vitamin B-12) 1,000 mcg PO DAILY [facility] Last Admin: 11/13/17 09:36 Dose: 1,000 mcg Dabigatran (Pradaxa) 150 mg PO BID [facility] Last Admin: 11/13/17 20:48 Dose: 150 mg Docusate Sodium (Colace) 100 mg PO QAM [facility] Last Admin: 11/13/17 09:36 Dose: 100 mg Ferrous Sulfate (Ferrous Sulfate) 325 mg PO DAILY@1730 [facility] Last Admin: 11/13/17 16:54 Dose: 325 mg Folic Acid (Folic Acid) 1 mg PO DAILY [facility] Last Admin: 11/13/17 09:34 Dose: 1 mg Gabapentin (Neurontin) 300 mg PO QNOON [facility] Last Admin: 11/13/17 11:54 Dose: 300 mg Gabapentin (Neurontin) 600 mg PO BID [facility] Last Admin: 11/13/17 20:48 Dose: 600 mg Piperacillin Sod/Tazobactam (Sod 3.375 gm/ Dextrose) 50 mls @ 100 mls/hr IV Q8H [facility] Last Admin: 11/14/17 04:50 Dose: 100 mls/hr Levothyroxine Sodium (Synthroid) 75 mcg PO QAMAC [facility] Last Admin: 11/14/17 09:07 Dose: 75 mcg Metoclopramide HCl (Reglan) 5 mg PO ACHS [facility] Last Admin: 11/14/17 09:07 Dose: 5 mg Metoprolol Succinate (Toprol Xl) 100 mg PO DAILY [facility] Last Admin: 11/13/17 09:33 Dose: 100 mg Metoprolol Succinate (Toprol Xl) 25 mg PO DAILY [facility] Last Admin: 11/13/17 09:34 Dose: 25 mg Melatonin 3 Mg Tab 1 dose PO HS [facility] Last Admin: 11/13/17 20:49 Dose: 1 dose Nortriptyline HCl (Pamelor) 150 mg PO HS [facility] Last Admin: 11/13/17 20:48 Dose: 150 mg Ondansetron HCl (Zofran) 4 mg IV Q4-6HP PRN PRN Reason: Nausea And Vomiting Sodium Chloride (Saline Flush) 10 ml IV Q8 [facility] Last Admin: 11/14/17 04:50 Dose: 10 ml Spironolactone (Aldactone) 25 mg PO DAILY [facility] Last Admin: 11/13/17 09:34 Dose: 25 mg Medical - PN: A/P - Time Spent With Patient Total time spent is greater than 50% in coordination of care (as documented) at patient's floor/unit and/or counseling patient: - Narrative A/P Narrative: A/P Right lower extremity wound- Management per Surgery/ Wound care/ wound vac Atrial fibrillation- rate controlled,tsh wnl, on pradaxa continue same, continue metoprolol for rate control, CAD/CHF- on metoprolol, asa, and Aldactone continue same, no active issues. CXR shows mild congestion. ? clinically not volume overloaded. avoid IVF DM- borderline diet controlled anxiety/depression- on xanax prn Lupus_ does not seem to be on any medication for same DM neuropathy/chr pain- continue home pain medications. Will follow along while in the hospital, No change in plan, can continue same medications as before at discharge. Medical - PN: Qual - VTE Deep Vein Thrombosis/Pulmonary Embolism Present on Admission: No
[2017-11-14] MEDS: SPIRONOLACTONE 25 MG TABLET PO SCH (11:42)
[2017-11-14] MEDS: CYANOCOBALAMIN (VITAMIN B-12) 500 MCG TABLET PO SCH (11:43)
[2017-11-14] MEDS: DABIGATRAN ETEXILATE MESYLATE 75 MG CAPSULE PO SCH ×2 (11:43→20:40)
[2017-11-14] MEDS: FOLIC ACID 1 MG TABLET PO SCH (11:43)
[2017-11-14] MEDS: METOPROLOL SUCCINATE 25 MG TAB.XL.24H PO SCH (11:43)
[2017-11-14] MEDS: DOCUSATE SODIUM 100 MG CAPSULE PO SCH (11:44)
[2017-11-14] MEDS: ASPIRIN 81 MG TAB.CHEW PO SCH (11:44)
[2017-11-14] MEDS: GABAPENTIN 300 MG CAPSULE PO SCH ×3 (11:44→20:41)
[2017-11-14] MEDS: METOPROLOL SUCCINATE 50 MG TAB.XL.24H PO SCH (11:48)
[2017-11-14] MEDS: HYDROcodone/APAP 5/325MG TABLET PO PRN (12:59)
[2017-11-14] MEDS: FERROUS SULFATE 325 MG TABLET PO SCH (17:26)
[2017-11-14] MEDS: ACETAMINOPHEN 500 MG TABLET PO PRN (20:41)
[2017-11-14] MEDS: NORTRIPTYLINE 25 MG CAPSULE PO SCH (20:43)
[2017-11-14] MEDS: ALPRAZolam 0.5 MG TABLET PO SCH (20:45)
[2017-11-15] MEDS: PIPERACILLIN SODIUM/TAZOBACTAM 3.375 GM in DEXTROSE 5% IN WATER 50 ML IV SCH (05:56)
[2017-11-15] MEDS: 0.9 % SODIUM CHLORIDE 10 ML SYRINGE IV SCH ×3 (05:56→21:10)
[2017-11-15] MEDS: DABIGATRAN ETEXILATE MESYLATE 75 MG CAPSULE PO SCH ×2 (07:46→21:10)
[2017-11-15] MEDS: METOPROLOL SUCCINATE 25 MG TAB.XL.24H PO SCH (07:46)
[2017-11-15] MEDS: METOPROLOL SUCCINATE 50 MG TAB.XL.24H PO SCH (07:46)
[2017-11-15] MEDS: CYANOCOBALAMIN (VITAMIN B-12) 500 MCG TABLET PO SCH (07:47)
[2017-11-15] MEDS: SPIRONOLACTONE 25 MG TABLET PO SCH (07:47)
[2017-11-15] MEDS: FOLIC ACID 1 MG TABLET PO SCH (07:47)
[2017-11-15] MEDS: GABAPENTIN 300 MG CAPSULE PO SCH ×3 (07:47→21:09)
[2017-11-15] MEDS: LEVOTHYROXINE 75 MCG TABLET PO SCH (07:47)
[2017-11-15] MEDS: ASPIRIN 81 MG TAB.CHEW PO SCH (07:47)
--- NOTE | 2017-11-15 08:40 | General Surgery Progress Note ---
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 Chief Complaint: Patient is resting in bed. Complains of diarrhea and requests immodium. C. difficile testing is negative. Reglan and colace stopped last night. Denies pain in her leg. Vital Signs Temp Pulse Resp BP Pulse Ox 97.4 F 92 H 16 116/75 94 11/15/17 08:00 11/15/17 07:30 11/15/17 08:00 11/15/17 08:00 11/15/17 08:00 Period Temp Pulse Resp BP Sys/Ennis Pulse Ox Last 24 Hr 97.2 F-97.9 F 67-108 14-18 112-142/70-81 94-97 Intake and Output 11/14/17 11/15/17 11/15/17 21:59 05:59 13:59 Intake Total 100 / 100 600 / 600 Output Total Balance 100 / 100 599 / 599 Weight 230 lb PE: No distress. A&O x 3 Chest: clear bilaterally CV: irregularly irregular EXT: right leg wound VAC dressing in place with good suction. No surrounding erythema or skin changes. A/P: Right leg wound. Wound VAC therapy being tolerated. Wound dressing done yesterday and wound looked good. Will change dressing again tomorrow. Diarrhea: likely in part to IV Abx. Will stop zosyn. Has had 3 days of abx and final cultures from wound with no growth and wound bed appears clean. Will give immodium once this morning to try and settle diarrhea.
[2017-11-15] MEDS: LOPERAMIDE 2 MG CAPSULE PO PRN ×2 (11:28→17:58)
--- NOTE | 2017-11-15 15:16 | Internal Med Progress Note ---
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 Chief Complaint: [] had bimaleolar ankle fracture repair at [facility] last month October 02 fracture. Was at SNF and no dressing change orders so pain not addressed with wound exam and patient came in with large shallow ulcer. debrided and wound vac by Dr. Duarte. Interval history: no complaints. - Constitutional Vitals: Vital Signs Temp Pulse Resp BP Pulse Ox 97.1 F 92 H 16 104/56 95 11/15/17 12:00 11/15/17 07:30 11/15/17 12:00 11/15/17 12:00 11/15/17 12:00 Period Temp Pulse Resp BP Sys/Ennis Pulse Ox Last 24 Hr 97.1 F-97.9 F 67-108 14-18 104-142/56-80 94-95 Intake and Output 11/15/17 11/15/17 11/15/17 05:59 13:59 21:59 Intake Total 600 / 600 170 / 170 Output Total 301 / 301 Balance 599 / 599 -131 / -131 Intake & Output: Intake & Output 11/15/17 11/15/17 11/15/17 05:59 13:59 21:59 Intake Total 600 / 600 170 / 170 Output Total 301 / 301 Balance 599 / 599 -131 / -131 Intake: IV 50 / 50 Oral 600 / 600 120 / 120 Output: Void Amount / 1 # of times incontinent of urine Stool 300 / 300 Other: Meal Nourishment/Supplement Percent of Meal Consumed Refused Stool Size Moderate Stool Color Brown Green Stool Consistency Liquid Watery # Bowel Movements 1 - Respiratory Respiratory exam: Present: normal respiratory exam, CTAB - Cardiovascular Cardiovascular exam: Present: irregular rhythm Additional comments: trace ankle edema - Neurological Exam Neurological exam: Present: oriented X3 - Psychiatric Psychiatric exam: Present: normal affect, normal mood - Skin Skin exam: Present: dry, warm Medical - PN: Obj Da - Labs CBC & Chem 7: 11/12/17 03:55 11/12/17 03:55 Meds: Medications Acetaminophen (Tylenol) 500 mg PO Q4HP PRN PRN Reason: Pain Last Admin: 11/14/17 20:41 Dose: 500 mg Hydrocodone Bitart/Acetaminophen ([place] 5/325mg) 1 tab PO Q8HP PRN PRN Reason: Pain Last Admin: 11/14/17 12:59 Dose: 1 tab Alprazolam (Xanax) 0.5 mg PO HS [facility] Last Admin: 11/14/17 20:45 Dose: 0.5 mg Aspirin (Aspirin) 81 mg PO DAILY [facility] Last Admin: 11/15/17 07:47 Dose: 81 mg Cyanocobalamin (Vitamin B-12) 1,000 mcg PO DAILY [facility] Last Admin: 11/15/17 07:47 Dose: 1,000 mcg Dabigatran (Pradaxa) 150 mg PO BID [facility] Last Admin: 11/15/17 07:46 Dose: 150 mg Ferrous Sulfate (Ferrous Sulfate) 325 mg PO DAILY@1730 [facility] Last Admin: 11/14/17 17:26 Dose: 325 mg Folic Acid (Folic Acid) 1 mg PO DAILY [facility] Last Admin: 11/15/17 07:47 Dose: 1 mg Gabapentin (Neurontin) 300 mg PO QNOON [facility] Last Admin: 11/15/17 11:25 Dose: 300 mg Gabapentin (Neurontin) 600 mg PO BID [facility] Last Admin: 11/15/17 07:47 Dose: 600 mg Levothyroxine Sodium (Synthroid) 75 mcg PO QAMAC [facility] Last Admin: 11/15/17 07:47 Dose: 75 mcg Loperamide HCl (Imodium) 2 mg PO PRN PRN PRN Reason: Diarrhea Last Admin: 11/15/17 11:28 Dose: 2 mg Metoprolol Succinate (Toprol Xl) 100 mg PO DAILY [facility] Last Admin: 11/15/17 07:46 Dose: 100 mg Metoprolol Succinate (Toprol Xl) 25 mg PO DAILY [facility] Last Admin: 11/15/17 07:46 Dose: 25 mg Melatonin 3 Mg Tab 1 dose PO HS [facility] Last Admin: 11/14/17 20:43 Dose: 1 dose Nortriptyline HCl (Pamelor) 150 mg PO HS [facility] Last Admin: 11/14/17 20:43 Dose: 150 mg Ondansetron HCl (Zofran) 4 mg IV Q4-6HP PRN PRN Reason: Nausea And Vomiting Sodium Chloride (Saline Flush) 10 ml IV Q8 [facility] Last Admin: 11/15/17 05:56 Dose: 10 ml Spironolactone (Aldactone) 25 mg PO DAILY [facility] Last Admin: 11/15/17 07:47 Dose: 25 mg Medical - PN: A/P - Time Spent With Patient Total time spent is greater than 50% in coordination of care (as documented) at patient's floor/unit and/or counseling patient: 15 - 24 minutes (1) Wound, open, lower limb with complication Status: Acute Assessment and plan: stable not infected continue wound vac Current Visit: Yes (2) Atrial fibrillation Status: Acute Assessment and plan: continue rate control and pradaxa anticoagulation Current Visit: Yes Medical - PN: Qual - VTE Deep Vein Thrombosis/Pulmonary Embolism Present on Admission: No
[2017-11-15] MEDS: FERROUS SULFATE 325 MG TABLET PO SCH (17:58)
[2017-11-15] MEDS: NORTRIPTYLINE 25 MG CAPSULE PO SCH (21:09)
[2017-11-15] MEDS: ALPRAZolam 0.5 MG TABLET PO SCH (21:09)
[2017-11-15] MEDS: ACETAMINOPHEN 500 MG TABLET PO PRN (21:10)
[2017-11-16] MEDS: 0.9 % SODIUM CHLORIDE 10 ML SYRINGE IV SCH (04:48)
[2017-11-16] MEDS: LEVOTHYROXINE 75 MCG TABLET PO SCH (07:22)
[2017-11-16] MEDS: LOPERAMIDE 2 MG CAPSULE PO PRN (07:22)
[2017-11-16] MEDS: ACETAMINOPHEN 500 MG TABLET PO PRN (07:22)
--- NOTE | 2017-11-16 09:14 | General Surgery Progress Note ---
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 Chief Complaint: [] Patient resting in bed. No complaints Vital Signs Temp Pulse Resp BP Pulse Ox 97.6 F 104 H 16 111/73 94 11/16/17 07:54 11/16/17 07:54 11/16/17 07:54 11/16/17 07:54 11/16/17 07:54 Period Temp Pulse Resp BP Sys/Ennis Pulse Ox Last 24 Hr 97.1 F-98.7 F 92-104 - 104-141/56-85 90-97 Intake and Output 11/15/17 11/16/17 11/16/17 21:59 05:59 13:59 Intake Total 240 / 240 150 / 150 Output Total 300 / 300 500 / 500 Balance -60 / -60 150 / 150 -500 / -500 Weight 230 lb 8 oz PE: No distress. Chest: clear. No accessory muscle use. CV: irregularly irregular rhythm EXT: right leg wound clean without drainage or exudate. >97% granulation tissue covering wound. Wound dimensions not [id number]. A/P: s/p I&D right lower leg wound. Cx negative Wound responding to VAC therapy. Will continue with VAC therapy.
--- NOTE | 2017-11-16 09:18 | Discharge Summary ---
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 Chief Complaint: [] Date of admission: 12/10/17 Discharge date: 11/16/17 Attending physician: Yanet Duarte Hospitalist service Hospitalization Hospital course: Patient was admitted on 11/10/17 for RLE wound. She was taken to the OR on for I&D of right leg wound. She was on IV abx until Cx returned no growth. On POD#2 she was started on VAC therapy for her wound which was well tolerated and showed improvement in wound over the subsequent 3 days. She is discharged to [facility] and rehab for continued care and Rehab for her previous right ankle fracture and current wound. Discharge diagnosis: Right leg wound Reason for admission: Right leg wound Procedures: I&D of right leg wound. Exam Temp Pulse Resp BP Pulse Ox 97.6 F 104 H 16 111/73 94 11/16/17 07:54 11/16/17 07:54 11/16/17 07:54 11/16/17 07:54 11/16/17 07:54 Discharge Plan - Patient/Caregiver Discharge Instructions Discharge Summary: Patient was admitted on 11/10/17 for RLE wound. She was taken to the OR on for I&D of right leg wound. She was on IV abx until Cx returned no growth. On POD#2 she was started on VAC therapy for her wound which was well tolerated and showed improvement in wound over the subsequent 3 days. She is discharged to [facility] and rehab for continued care and Rehab for her previous right ankle fracture and current wound. She is to be on the Wound VAC with dressing changes Thursday, Thursday and Thursday with black sponge to wound bed. Surrounding skin to be covered with duoderm thin to protect skin from adhesive. For each wound dressing change cleanse wound first with Voshe cleanser prior to placing VAC dressing. Activity: as per physical therapy (No weight bearing to RLE per Dr. Turpin's previous order.) Diet: Regular Diet - Follow up Plan Disposition: Xfer Inpatient Rehab Fac Prognosis: Fair Rehab Potential: Fair I certify that the patient requires SNF services.: Yes Overall status at discharge: patient is progressing back to baseline Pending Studies Resuscitation Status Full Code Diet Consistent Carbohydrate Diet Start ThuNov 11 1208 Acetaminophen (Tylenol) 500 mg PO Q4HP PRN PRN Reason: Pain Last Admin: 11/16/17 07:22 Dose: 500 mg Admin: 11/15/17 21:10 Dose: 500 mg Admin: 11/14/17 20:41 Dose: 500 mg Admin: 11/13/17 20:48 Dose: 500 mg Admin: 11/13/17 14:24 Dose: 500 mg Hydrocodone Bitart/Acetaminophen ([place] 5/325mg) 1 tab PO Q8HP PRN PRN Reason: Pain Last Admin: 11/14/17 12:59 Dose: 1 tab Admin: 11/13/17 06:42 Dose: 1 tab Alprazolam (Xanax) 0.5 mg PO [facility] Last Admin: 11/15/17 21:09 Dose: 0.5 mg Admin: 11/14/17 20:45 Dose: 0.5 mg Admin: 11/13/17 20:48 Dose: 0.5 mg Admin: 11/12/17 21:01 Dose: 0.5 mg Aspirin (Aspirin) 81 mg PO DAILY [facility] Last Admin: 11/15/17 07:47 Dose: 81 mg Admin: 11/14/17 11:44 Dose: 81 mg Admin: 11/13/17 09:34 Dose: 81 mg Cyanocobalamin (Vitamin B-12) 1,000 mcg PO DAILY [facility] Last Admin: 11/15/17 07:47 Dose: 1,000 mcg Admin: 11/14/17 11:43 Dose: 1,000 mcg Admin: 11/13/17 09:36 Dose: 1,000 mcg Dabigatran (Pradaxa) 150 mg PO BID [facility] Last Admin: 11/15/17 21:10 Dose: 150 mg Admin: 11/15/17 07:46 Dose: 150 mg Admin: 11/14/17 20:40 Dose: 150 mg Admin: 11/14/17 11:43 Dose: 150 mg Admin: 11/13/17 20:48 Dose: 150 mg Admin: 11/13/17 09:33 Dose: 150 mg Admin: 11/12/17 21:00 Dose: 150 mg Ferrous Sulfate (Ferrous Sulfate) 325 mg PO DAILY@1730 [facility] Last Admin: 11/15/17 17:58 Dose: 325 mg Admin: 11/14/17 17:26 Dose: 325 mg Admin: 11/13/17 16:54 Dose: 325 mg Admin: 11/12/17 17:22 Dose: Folic Acid (Folic Acid) 1 mg PO DAILY [facility] Last Admin: 11/15/17 07:47 Dose: 1 mg Admin: 11/14/17 11:43 Dose: 1 mg Admin: 11/13/17 09:34 Dose: 1 mg Gabapentin (Neurontin) 300 mg PO QNOON [facility] Last Admin: 11/15/17 11:25 Dose: 300 mg Admin: 11/14/17 11:45 Dose: Not Given Admin: 11/13/17 11:54 Dose: 300 mg Gabapentin (Neurontin) 600 mg PO BID [facility] Last Admin: 11/15/17 21:09 Dose: 600 mg Admin: 11/15/17 07:47 Dose: 600 mg Admin: 11/14/17 20:41 Dose: 600 mg Admin: 11/14/17 11:44 Dose: 600 mg Admin: 11/13/17 20:48 Dose: 600 mg Admin: 11/13/17 09:34 Dose: 600 mg Admin: 11/12/17 21:00 Dose: 600 mg Levothyroxine Sodium (Synthroid) 75 mcg PO QAMAC [facility] Last Admin: 11/16/17 07:22 Dose: 75 mcg Admin: 11/15/17 07:47 Dose: 75 mcg Admin: 11/14/17 09:07 Dose: 75 mcg Admin: 11/13/17 06:42 Dose: 75 mcg Loperamide HCl (Imodium) 2 mg PO PRN PRN PRN Reason: Diarrhea Last Admin: 11/16/17 07:22 Dose: 2 mg Admin: 11/15/17 17:58 Dose: 2 mg Admin: 11/15/17 11:28 Dose: 2 mg Metoprolol Succinate (Toprol Xl) 100 mg PO DAILY [facility] Last Admin: 11/15/17 07:46 Dose: 100 mg Admin: 11/14/17 11:48 Dose: 100 mg Admin: 11/13/17 09:33 Dose: 100 mg Metoprolol Succinate (Toprol Xl) 25 mg PO DAILY [facility] Last Admin: 11/15/17 07:46 Dose: 25 mg Admin: 11/14/17 11:43 Dose: 25 mg Admin: 11/13/17 09:34 Dose: 25 mg Melatonin 3 Mg Tab 1 dose PO HS [facility] Last Admin: 11/15/17 21:10 Dose: 1 dose Admin: 11/14/17 20:43 Dose: 1 dose Admin: 11/13/17 20:49 Dose: 1 dose Admin: 11/12/17 21:01 Dose: 1 dose Nortriptyline HCl (Pamelor) 150 mg PO HS [facility] Last Admin: 11/15/17 21:09 Dose: 150 mg Admin: 11/14/17 20:43 Dose: 150 mg Admin: 11/13/17 20:48 Dose: 150 mg Admin: 11/12/17 21:01 Dose: 150 mg Sodium Chloride (Saline Flush) 10 ml IV Q8 [facility] Last Admin: 11/16/17 04:48 Dose: Admin: 11/15/17 21:10 Dose: 10 ml Admin: 11/15/17 17:58 Dose: 10 ml Admin: 11/15/17 05:56 Dose: 10 ml Admin: 11/14/17 20:44 Dose: 10 ml Admin: 11/14/17 14:55 Dose: 10 ml Admin: 11/14/17 04:50 Dose: 10 ml Admin: 11/13/17 20:49 Dose: 10 ml Admin: 11/13/17 14:17 Dose: 10 ml Admin: 11/13/17 05:54 Dose: 10 ml Admin: 11/12/17 21:02 Dose: 10 ml Spironolactone (Aldactone) 25 mg PO DAILY [facility] Last Admin: 11/15/17 07:47 Dose: 25 mg Admin: 11/14/17 11:42 Dose: 25 mg Admin: 11/13/17 09:34 Dose: 25 mg Shift Summary 11/16/17 04:04 Shift Summary by Kaur Pearl Pt received Tylenol with HS meds. Pt had one stool and one void this shift. [facility] today. Out Pt wound vac is in pt room in window. Dr. Duarte plans on changing dressing prior to discharge. Will update with verbal report. Initialized on 11/16/17 04:04 - END OF NOTE
[2017-11-16] MEDS: SPIRONOLACTONE 25 MG TABLET PO SCH (09:51)
[2017-11-16] MEDS: METOPROLOL SUCCINATE 25 MG TAB.XL.24H PO SCH (09:52)
[2017-11-16] MEDS: DABIGATRAN ETEXILATE MESYLATE 75 MG CAPSULE PO SCH (09:53)
[2017-11-16] MEDS: FOLIC ACID 1 MG TABLET PO SCH (09:53)
[2017-11-16] MEDS: CYANOCOBALAMIN (VITAMIN B-12) 500 MCG TABLET PO SCH (09:54)
[2017-11-16] MEDS: GABAPENTIN 300 MG CAPSULE PO SCH (09:56)
[2017-11-16] MEDS: METOPROLOL SUCCINATE 50 MG TAB.XL.24H PO SCH (09:58)
[2017-11-16] MEDS: ASPIRIN 81 MG TAB.CHEW PO SCH (09:59)
--- NOTE | 2017-11-20 06:47 | Operative Note ---
DATE OF OPERATION: 11/11/2017 PREOPERATIVE DIAGNOSIS: Right lower leg wound. POSTOPERATIVE DIAGNOSIS: Right lower leg wound, full thickness skin loss but not extending below the subcutaneous fat. Wound dimensions 12 x 10 x 7 cm. PROCEDURE PERFORMED: Debridement of right lower extremity wound with cultures taken. SURGEON: Yanet Duarte MD ANESTHETIC: General laryngeal mask anesthesia. INDICATIONS FOR PROCEDURE: The patient is a 77-year-old woman who has a fairly recent surgical history of a right bimalleolar ankle surgical fixation after sustaining bilateral malleolar fractures from a fall. This was done in September of this year. Postoperatively, she has developed a large wound on the lower anterior medial aspect of the right leg above the area of the medial ankle incision. On appearance the wound is quite large with overlying eschar with some fluctuance underlying it by palpation and appears consistent with full thickness skin loss in this area. She is brought to the operating room for debridement of this. INTRAOPERATIVE FINDINGS: Showed a full thickness loss of skin in the area of eschar. Underlying this were areas of necrotic tissue with some purulent look to them from which cultures were taken. After debridement of the superficial areas of non-viability, underlying fatty tissue appears viable and healthy. DESCRIPTION OF PROCEDURE: After obtaining informed consent, the patient was taken to the operating room where a timeout was taken to confirm that she was here for the above-stated procedure. She was already on antibiotics in the hospital, so additional antibiotics were not dosed preoperatively. She was placed in the supine position on the operating table and general laryngeal mask anesthesia was induced. The right lower extremity was then prepped and draped in a sterile manner. The right lower extremity wound was measured at 12 x 10 cm, greatest dimensions with a slightly narrowed area in between at 7 cm. Sharp dissection was performed using Metzenbaum scissors on one edge of the eschar where the fluctuance was palpated. After releasing this edge of the eschar, the underlying tissues were easily visualized as the remaining eschar moving medially easily lifted from the underlying tissue. The Metzenbaum scissors could easily be passed underneath the eschar without any resistance suggesting that there was no central contact of the overlying eschar. Cultures were taken of this area and sent to the lab. Additional sharp dissection was performed to release the edges of the eschar circumferentially. As the eschar was lifted off from the edges it easily peeled away from the underlying tissue, which had clearly areas of superficial necrotic tissue with some purulence appearance mixed in. Additional cultures were taken and sent to the lab. Finally, after the eschar was completely removed there was an area of superiorly on the wound that when the skin was palpated just above the wound edge, purulent material was seen to come from that area. Gentle blunt finger dissection revealed an underlying pocket of this fluid and a third culture was taken. This was taken from the medial lower right leg. This area was evacuated of the small amount of fluid that was there. The skin overlying the area appeared healthy and viable so this part was not incised. Next, a curet was used to remove all visible nonviable tissue from the surface of the wound including the area underlying the small flap of skin superiorly. This was done until underlying healthy fatty tissue was encountered and the amount of necrotic tissue was a thin layer not extending more than 0.5 cm or less in the depths. The remaining tissue had bleeding coming from the surfaces and was normal in texture to palpation and appearance. The wound was then irrigated with Dakin solution diluted to half strength with saline. The wound was then dressed with small gauze extending into the subcutaneous space superiorly and then large Xeroform gauze covering the remainder of the raw surface of the wound and covered by gauze and a Kerlix roll. Sponge and needle counts were correct at the end of case. The patient tolerated the procedure well and there were no immediate complications. She was transferred to PACU in stable condition. ESTIMATED BLOOD LOSS: 15 mL IV FLUIDS: 700 mL SPECIMEN: Wound cultures x3. RC:callum Job ID: [id number] Doc ID: [id number] Yanet Duarte MD
== END 2017-11-16 10:45 | DRG 902 ==
LOC: WHC 12:47 → MEDSUR 14:59 → ICU 19:00 → MEDSUR 11-12 18:13
PROVIDERS: ADMIT Surgery; ATTEND Surgery

== ENCOUNTER 2019-05-22 16:37 | Inpatient (IN) ==
--- NOTE | 2019-05-22 16:51 | Internal Med History&Physical ---
Medical - H&P: [facility] Patient information: Note initiated : 05/22/19 at 4:49 pm Service Date, if different from initiated Date: [] Patient: Peg Santoyo a 79 y/o F admitted on for Abscess of the Right Ankle with Cellulitis. Chief Complaint: [] History of present illness: Ms. Santoyo is a 79 year old F 79-year-old female presented to [place] ED on the 3rd for right foot swelling /pain and redness as well as fever. was also in A. fib RVR 150. She had a previous bimalleolar fracture of that right ankle in the past. She needed a debridement of that wound after she had had the original fracture repaired back in 2018. She has a chronic wound in that location. And has been followed by [facility] wound care clinic. Case was discussed with Dr. Borja initially in the ER and patient was started IV antibiotics to follow-up with him early in the week. However it seems to be progressing a CT done today shows a large abscess with gas. She has been on a diltiazem drip which is been weaned down to 5 mg/h. ESR is 102 and CRP 33. White blood cell count 16 down from 20 the previous day. He is also being treated for UTI. Currently on vancomycin and Rocephin. Patient states it all started when she tripped a week ago. Since that time developed increasing redness swelling and tenderness. Reports fevers. Review of Systems: Pertinent positives as above. Denies headache/nausea/vomiting/chest or abdominal pain/cough/dyspnea/diarrhea. Many 10 point review of system reviewed negative Medical - H&P: PMH Medical history: PAST MEDICAL HISTORY: 1. obesity. 2. Recurrent episodes of hematuria, likely related to her recurrent bouts of urinary tract infections. 3. Recurrent urinary tract infections. 4. Restless leg syndrome. 5. Intertrigo. 6. Insomnia. 7. Prior episode of GI bleeding. 8. Reactive airways disease. 9. Esophageal stenosis. 10. Constipation. 11. Bilateral knee pain. 12. Osteoarthritis/degenerative joint disease. 13. Prior history of overdose with psychiatric hospitalizations. 14. Atrial fibrillation with a history of rapid ventricular response. 15. Congestive heart failure. 16. Peripheral vascular disease. 17. Diabetic polyneuropathy. 18. Depression. 19. Generalized anxiety disorder. 20. Type 2 diabetes mellitus. 21. Dyslipidemia. 22. Hypothyroidism. 23. Cardiac arrest associated with a hysterectomy. 24. Fatty liver infiltration. 25. Migraine headaches. 26. Gastroesophageal reflux disease. 27. Vertebral compression fracture. 28. Irritable bowel syndrome. 29. Diverticulosis with prior episodes of diverticulitis. 30. Urinary incontinence. 31. Coronary artery disease. 32. Candidal infection of the right breast and inguinal areas. 33. Anemia due to folic acid deficiency. 34. Edema. 35. Chronic pain. 36. Post-polio syndrome. 37. Personality disorder. 38. Fibromyalgia. 39. Childhood scarlet fever with a development of mitral valve prolapse. 40. Systemic lupus erythematosus. 41. Peptic ulcer disease. 42. Scleroderma. 43. Esophageal dyskinesia. 44. Vitamin D deficiency, nutritional in nature. Surgical history: 1. Status post vaginal cyst removal in 1970. 2. Left knee surgery in 1999. 3. Colonoscopies. 4. Bowel surgeries consisting of polypectomy and fissure repairs. 5. Total abdominal hysterectomy with bilateral salpingo-oophorectomy in 1975. 6. Cholecystectomy. 7. Tonsillectomy. 8. Breast cyst aspirations times 2. 9. Bilateral carpal tunnel releases. 10. Carpometacarpal joint surgery of the right hand. 11. Left hand surgery, unspecified. 12. Hemorrhoidectomy. 13. Cataract extracted in 2009. Family history: Mother with lung cancer and myocardial infarction Father with alcohol abuse Social history: She quit smoking in 50 years ago no etoh Resides at assisted living facility Uses a walker in her room and a wheelchair anywhere else Medical - H&P: Meds Home Medications Medication Instructions Recorded Confirmed Type ALPRAZolam [Xanax] 0.5 mg PO HS 11/10/17 11/10/17 History Acetaminophen [Shake That Ache] 500 mg PO Q4HP PRN 11/10/17 11/10/17 History Aspirin [Aspirin EC] 81 mg PO DAILY 11/10/17 11/10/17 History Benzonatate [Tessalon] 100 mg PO Q6HP PRN 11/10/17 11/10/17 History Cholecalciferol (Vitamin D3) 2,000 unit PO QAM 11/10/17 11/10/17 History [Vitamin D3] Cyanocobalamin (Vitamin B-12) 1,000 mcg SL DAILY 11/10/17 11/10/17 History [Vitamin B-12] Dabigatran Etexilate Mesylate 150 mg PO BID 11/10/17 11/10/17 History [Pradaxa] Docusate Sodium [Colace] 100 mg PO QAM 11/10/17 11/10/17 History Ferrous Sulfate [Iron] 325 mg PO DAILY 11/10/17 11/10/17 History Folic Acid 1 mg PO DAILY 11/10/17 11/10/17 History Gabapentin 600 mg PO BID 11/10/17 11/10/17 History Gabapentin [Neurontin] 300 mg PO QNOON 11/10/17 11/10/17 History HYDROcodone/APAP 5/325MG [[place] 1 tab PO Q8HP PRN 11/10/17 11/10/17 History 5-325Mg] Inulin [Child's Fiber Select 1.5 gm PO QDAY 11/10/17 11/10/17 History Gummies] Levothyroxine [Synthroid] 75 mcg PO DAILY 11/10/17 11/10/17 History Loperamide [Imodium] 2 mg PO PRN PRN 11/10/17 11/10/17 History Magnesium Hydroxide [Milk of 30 ml PO DAILYP PRN 11/10/17 11/10/17 History Magnesia] Melatonin [Melatin] 3 mg PO HS 11/10/17 11/10/17 History Metoclopramide HCl [Metoclopramide 5 mg PO ACHS 11/10/17 11/10/17 History HCl Odt] Metoprolol Succinate [Toprol Xl] 25 mg PO DAILY 11/10/17 11/10/17 History Metoprolol Succinate [Toprol Xl] 100 mg PO QDAY 11/10/17 11/10/17 History Naproxen Sodium [All Day Pain 220 mg PO QDAY PRN 11/10/17 11/10/17 History Relief] Nortriptyline HCl [Pamelor] 150 mg PO HS 11/10/17 11/10/17 History Polyethylene Glycol 3350 [Miralax] 17 gm PO Q48 11/10/17 11/10/17 History Sodium Bicarbonate/Sodium Cit 2 each PO QDP PRN 11/10/17 11/10/17 History [[place] Heartburn Tab Eff] Spironolactone [Aldactone] 25 mg PO DAILY 11/10/17 11/10/17 History Vitamin E (Dl,Tocopheryl Acet) 200 unit PO DAILY 11/10/17 11/10/17 History [Vitamin E] guaiFENesin/D-METHORPHAN HB/PE 15 ml PO Q6HP PRN 11/10/17 11/10/17 History [Robafen Cf Liquid] ALPRAZolam [Xanax] 0.5 mg PO HS #5 tab 11/16/17 Rx HYDROcodone/APAP 5/325MG [[place] 1 tab PO Q8HP PRN #5 tab 11/16/17 Rx 5-325Mg] Allergies Allergy/AdvReac Type Severity Reaction Status Date / Time morphine Allergy Mild Itchy Nose Verified 03/12/18 10:39 acyclovir Allergy Unknown Unknown Verified 03/12/18 10:39 atenolol [From Tenormin] Allergy Unknown Unknown Verified 03/12/18 10:39 ciprofloxacin [From Cipro] Allergy Unknown Unknown Verified 03/12/18 10:39 diltiazem [From Cardizem] Allergy Unknown Unknown Verified 03/12/18 10:39 meclizine Allergy Unknown Unknown Verified 03/12/18 10:39 nitrofurantoin Allergy Unknown Unknown Verified 03/12/18 10:39 [From Macrobid] promethazine Allergy Unknown Unknown Verified 03/12/18 10:39 rosuvastatin [From Crestor] Allergy Unknown Unknown Verified 03/12/18 10:39 sulfamethoxazole Allergy Unknown Unknown Verified 03/12/18 10:39 [From Bactrim] trimethoprim [From Bactrim] Allergy Unknown Unknown Verified 03/12/18 10:39 Medical - H&P: Exam - Constitutional Exam: General: Alert, Awake, No acute Distress, obese Eyes/N/T: EOMI, PERRL, Head/Neck: neck supple, normocephalic atraumatic CV: RRR, No murmurs, normal s1/s2 Pulm: left base rales, no wheezing Abd: soft, nontender, +BS x4 Ext: no clubbing/cyanosis. RLE/foot edematous/warm/tender Neuro: Alert, no focal deficits, moves all extremities, CN 2-12 grossly intact, symmetrical strength b/l upper/lower, Skin: warm/dry Medical - H&P: A/P - Narrative A/P Narrative: A: *Right ankle cellulitis/abscess with gas with hardware present from previous fracture: -CT with abscess medially. Wound has grown MSSA in past *Chronic RLE wound: Has been following with wound care clinic *SIRS: improving *UTI: *DM w/neuropathy: Apparently diet controlled, she is not on any medications that I can see and she doesn't recall any *AFib RVR: was on dilt gtt at outside facility *h/o systolic(45%)/diastolic CHF: *CKD III: *Hypothyroidism *?Dementia: *Anxiety/depression: *Obesity: * P: -cont Vanc/Zosyn, clinda for 24-48 hours -pending WC and intraop cxs -Dr. Bojra for hardware removal and washout -Dr. Guaman wound care -monitor fluid balance -cont home BB, prn lopressor -ASA held for surgery -cont aldactone, prn lasix -SSI - -pt/ot -ppx: Pradaxa held for surgery tomorrow code status: DNR/DNI
[2019-05-22] MEDS ORDERED: MAGNESIUM SULFATE 2 GM/50 ML BAG IV PRN (17:00)
[2019-05-22] MEDS ORDERED: POTASSIUM CHLORIDE 20 MEQ TABLET PO PRN ×2 (17:00)
[2019-05-22] MEDS ORDERED: IPRATROPIUM/ALBUTEROL 3 ML AMPUL.NEB NEB PRN (17:00)
[2019-05-22] MEDS ORDERED: DEXTROSE 50% 50 ML VIAL IV PRN (17:00)
[2019-05-22] MEDS ORDERED: DEXTROSE 31 GM ORAL.SUSP PO PRN (17:00)
[2019-05-22] MEDS ORDERED: POTASSIUM CHLORIDE 40 MEQ in DEXTROSE 5% IN WATER 500 ML IV PRN (17:00)
[2019-05-22] MEDS ORDERED: VANCOMYCIN PER PHARMACY IV ONE (17:00)
[2019-05-22] MEDS ORDERED: METOPROLOL TARTRATE 25 MG TABLET PO ONE (19:37)
[2019-05-22] MEDS ORDERED: DILTIAZEM 125 MG/25 ML VIAL IV ONE (20:07)
[2019-05-22] MEDS: DILTIAZEM 125 MG in DEXTROSE 5% IN WATER 100 ML IV SCH (20:28)
[2019-05-22] MEDS: 0.9 % SODIUM CHLORIDE 250 ML IV SCH (20:30)
[2019-05-22] MEDS: LACTOBACILLUS 1 CAPSULE PO SCH (20:31)
[2019-05-22] MEDS: DOCUSATE SODIUM 100 MG CAPSULE PO SCH (20:31)
[2019-05-22] MEDS: INSULIN LISPRO 1 UNIT/0.01 ML UNIT SQ SCH ×2 (20:33→20:58)
[2019-05-22] MEDS: CEFEPIME 2 GM VIAL IV SCH (20:48)
[2019-05-22] MEDS: 0.9 % SODIUM CHLORIDE 10 ML SYRINGE IV SCH (20:58)
[2019-05-22] MEDS ORDERED: VANCOMYCIN 1,000 MG in 0.9 % SODIUM CHLORIDE 250 ML IV ONE (21:00)
[2019-05-23] MEDS ORDERED: CLINDAMYCIN 600 MG/4 ML VIAL ONE (03:51)
[2019-05-23] MEDS: METOPROLOL TARTRATE 5 MG/5 ML VIAL IV PRN ×2 (04:04→05:57)
[2019-05-23] MEDS: CLINDAMYCIN 600 MG in DEXTROSE 5% IN WATER 50 ML IV SCH ×3 (04:04→20:39)
[2019-05-23] MEDS: 0.9 % SODIUM CHLORIDE 10 ML SYRINGE IV SCH ×5 (05:59→20:52)
[2019-05-23 06:02] LABS: Basophils # (Auto) 0.04 K/mcL (0.00-0.30); Basophils % (Auto) 0.3 % (0.0-2.0); Eosinophils % (Auto) 2.2 % (0.0-7.0); Granulocytes % (Auto) 75.8 % (38.0-78.0); Hemoglobin 9.6 g/dL (11.2-15.7); Lymphocytes # (Auto) 1.85 K/mcL (1.50-4.80); Lymphocytes % (Auto) 13.6 % (15.5-49.0); Mean Cell Volume 92.6 fL (80.0-100.0); Mean Platelet Volume 9.6 fL (7.4-10.4); Monocytes % (Auto) 8.1 % (1.0-12.0); Platelet Count 302 K/mcL (140-440); RBC 3.24 M/mcL (3.59-5.38); Red Cell Distribution Width 14.8 % (11.5-14.5); WBC 13.6 K/mcL (4.50-11.00)
[2019-05-23] MEDS ORDERED: VANCOMYCIN PER PHARMACY IV SCH (06:15)
[2019-05-23 06:22] LABS: ALT/SGPT 28 U/l (0-40); AST/SGOT 24 U/l (0-37); Albumin 2.9 gm/dL (3.2-5.2); Albumin/Globulin Ratio 0.7 (1.0-2.3); Alkaline Phosphatase 212 U/L (39-117); Bilirubin,Direct 0.2 mg/dL (0.0-0.3); Bilirubin,Total 0.5 mg/dL (0.0-1.0); Blood Urea Nitrogen 21 mg/dl (8-23); Calcium 8.9 mg/dl (8.6-10.4); Carbon Dioxide 21 mmol/L (22-30); Chloride 98 mmol/L (96-108); Globulin 4.1 gm/dL (2.2-3.7); Glomerular Filtration Rate 47; Glucose 112 mg/dL (70-105); Lactate Dehydrogenase 191 U/L (94-250); Phosphorous 3.8 mg/dL (2.7-4.5); Triglycerides 136 mg/dl (<150); Uric Acid 7.2 mg/dL (2.5-8.0)
[2019-05-23 06:37] LABS: C-Reactive Protein 30.8 mg/dl (0.0-0.8)
[2019-05-23 06:59] LABS: Erythrocyte Sedimentation Rate 118 mm/hr (0-20)
[2019-05-23] MEDS: DILTIAZEM 125 MG in DEXTROSE 5% IN WATER 100 ML IV SCH ×3 (07:04→20:41)
[2019-05-23 07:08] LABS: Estimated Average Glucose(eAG) 114 mg/dL; Hemoglobin A1C 5.6 % HGB (4.0-6.0)
[2019-05-23] MEDS: INSULIN LISPRO 1 UNIT/0.01 ML UNIT SQ SCH ×4 (07:34→20:47)
--- NOTE | 2019-05-23 07:59 | Internal Med Progress Note ---
Medical - PN: Subj Patient information: Note initiated : 05/23/19 at 7:53 am Service Date, if different from initiated Date: [] Patient: Peg Santoyo a 79 y/o F admitted on 05/22/19 for Abscess of the Right Ankle with Cellulitis. Chief Complaint: [] Interval history: Ms. Santoyo is a 79 year old F 79-year-old female presented to [place] ED on the 3rd for right foot swelling /pain and redness as well as fever. was also in A. fib RVR 150. She had a previous bimalleolar fracture of that right ankle in the past. She needed a debridement of that wound after she had had the original fracture repaired back in 2018. She has a chronic wound in that location. And has been followed by [facility] wound care clinic. Case was discussed with Dr. Borja initially in the ER and patient was started IV antibiotics to follow-up with him early in the week. However it seems to be progressing a CT done today shows a large abscess with gas. She has been on a diltiazem drip which is been weaned down to 5 mg/h. ESR is 102 and CRP 33. White blood cell count 16 down from 20 the previous day. He is also being treated for UTI. Currently on vancomycin and Rocephin. Patient states it all started when she tripped a week ago. Since that time developed increasing redness swelling and tenderness. Reports fevers. 4/6 Slept well. No overnight events. The diltiazem drip 5 mg stopped last night but restarted about an hour ago for heart rates to the 110's. Transition to oral beta-kirby Review of Systems: denies headache/fever/chills/nausea/vomiting/chest or abdominal pain/cough/dyspnea/diarrhea. Otherwise see above. - Constitutional Vitals: Vital Signs Temp Pulse Resp BP Pulse Ox 98.9 F 105 H 22 108/62 98 05/23/19 07:23 05/23/19 00:57 05/23/19 04:42 05/23/19 07:23 05/23/19 07:23 Period Temp Pulse Resp BP Sys/Ennis Pulse Ox Last 24 Hr 98.9 F-100.6 F 105-108 14-28 71-131/50-96 96-99 Intake and Output 05/22/19 05/23/19 05/23/19 21:59 05:59 13:59 Intake Total 216 Output Total 251 Balance -35 Weight 97.069 kg Intake & Output: Intake & Output 05/22/19 05/23/19 05/23/19 21:59 05:59 13:59 Intake Total 216 Output Total 251 Balance -35 Weight 97.069 kg Intake: IV 16 Cardizem 125 mg In Dextrose 5% 16 in Water 100 ml @ 5 MG/HR 5 mls /hr IV Q12H IO[facility] Rx#:[id number] Oral 200 Output: Void Amount 250 # of times incontinent of urine 1 Other: # Voids 1 Exam: General: Alert, Awake, No acute Distress, obese Eyes/N/T: EOMI Head/Neck: neck supple, CV: RRR, No murmurs, Pulm: left base rales, no wheezing Abd: soft, nontender, +BS x4 Ext: no clubbing/cyanosis. RLE/foot edematous/warm/tender, currently in dressings Neuro: Alert, no focal deficits, moves all extremities, Skin: warm/dry Medical - PN: Obj Da - Labs CBC & Chem 7: 05/23/19 05:10 05/23/19 05:10 Labs: Abnormal Lab Results 05/23/19 05/23/19 05:10 05:10 WBC 13.6 H RBC 3.24 L Hgb 9.6 L Hct 30.0 L RDW 14.8 H Lymph % (Auto) 13.6 L Gran # 10.31 H [place] # (Auto) 1.10 H ESR 118 H Carbon Dioxide 21 L Glucose 112 H GGT 496 H Alkaline Phosphatase 212 H C-Reactive Protein 30.8 H Albumin 2.9 L Globulin 4.1 H Albumin/Globulin Ratio 0.7 L Meds: Medications Acetaminophen (Tylenol) 650 mg PO Q6HP PRN PRN Reason: PAIN/FEVER > 101 Albuterol/Ipratropium (Duoneb) 3 ml NEB Q4HP PRN PRN Reason: Shortness Of Breath Cefepime HCl (Maxipime) 2 gm IV DAILY IO[facility]; Protocol Last Admin: 05/22/19 20:48 Dose: 2 gm Documented by: Dextrose (Dextrose 50%) 0 ml IV UD PRN PRN Reason: Hypoglycemia Diagnostic Test (Pha) (Accu-Chek) 1 each FS ACHS IO[facility] Last Admin: 05/23/19 07:22 Dose: 1 each Documented by: Docusate Sodium (Colace) 100 mg PO BID [facility] Last Admin: 05/22/19 20:31 Dose: 100 mg Documented by: Glucose (Insta-Glucose) 15 gm PO PRN PRN PRN Reason: Hypoglycemia Potassium Chloride 40 meq/ (Dextrose) 520 mls @ 130 mls/hr IV UD PRN PRN Reason: Potassium < 3 Magnesium Sulfate (Magnesium Sulfate) 2 gm in 50 mls @ 50 mls/hr IV UD PRN PRN Reason: Magnesium </= 1.6 Diltiazem HCl 125 mg/ Dextrose 125 mls @ 5 mls/hr IV Q12H [facility]; Protocol Last Admin: 05/23/19 07:04 Dose: Not Given Documented by: Sodium Chloride (Sodium Chloride 0.9%) 250 mls @ 20 mls/hr IV .[id number] [facility] Last Admin: 05/22/19 20:30 Dose: 15 mls/hr Documented by: Clindamycin Phosphate 600 mg/ (Dextrose) 54 mls @ 100 mls/hr IV Q8H [facility]; Protocol Last Admin: 05/23/19 04:04 Dose: Not Given Documented by: Insulin Human Lispro (Humalog) 0 unit SQ [facility]; Protocol Last Admin: 05/23/19 07:34 Dose: Not Given Documented by: Lactobacillus Rhamnosus (Culturelle) 1 cap PO BID [facility] Last Admin: 05/22/19 20:31 Dose: 1 cap Documented by: Metoprolol Tartrate (Lopressor) 5 mg IV Q2HP PRN PRN Reason: Tachyarrhythmias HR>110 Last Admin: 05/23/19 05:57 Dose: 5 mg Documented by: Ondansetron HCl (Zofran) 4 mg IV Q4HP PRN PRN Reason: Nausea And Vomiting Oxycodone/Acetaminophen (Percocet 5-325 Mg) 1 tab PO Q4HP PRN PRN Reason: PAIN LEVEL 3-6 Polyethylene Glycol (Miralax) 17 gm PO DAILYP PRN PRN Reason: Constipation Potassium Chloride (Kdur) 40 meq PO UD PRN PRN Reason: Potssium is 3-3.5 Potassium Chloride (Kdur) 40 meq PO UD PRN PRN Reason: Potassium < 3 Senna (Senokot) 2 tab PO DAILYP PRN PRN Reason: Constipation Sodium Chloride (Saline Flush) 10 ml IV Q8 [facility] Last Admin: 05/23/19 05:59 Dose: 10 ml Documented by: Vancomycin HCl (Vancomycin Per Pharmacy) 1 order IV UD [facility]; Protocol Medical - PN: A/P - Time Spent With Patient Total time spent is greater than 50% in coordination of care (as documented) at patient's floor/unit and/or counseling patient: - Narrative A/P Narrative: A: *Right ankle cellulitis/abscess with gas, hardware present from previous fracture: -CT with abscess medially. Wound has grown MSSA in past -leukocytosis improving - *Chronic RLE wound: Has been following with wound care clinic *SIRS: improving *UTI: *DM w/neuropathy: Apparently diet controlled, she is not on any medications that I can see and she doesn't recall any *AFib RVR: started on dilt gtt at outside facility stopped last night *h/o systolic(45%)/diastolic CHF: *CKD III: *Hypothyroidism *?Dementia: *Anxiety/depression: *Obesity: * P: -cont Vanc/Zosyn, clinda will d/c in AM -pending WC and intraop cxs -Dr. Borja for hardware removal and washout -Dr. Guaman wound care -monitor fluid balance -dilt gtt to BB, change toprol to lopressor, monitor HR -ASA held for surgery -cont home aldactone/lasix -SSI - -pt/ot -ppx: Pradaxa held for surgery, code status: DNR/DNI Medical - PN: Qual - VTE Deep Vein Thrombosis/Pulmonary Embolism Present on Admission: No
[2019-05-23] MEDS ORDERED: SCOPOLAMINE 1 PATCH PATCH TOPICAL PRN (08:01)
[2019-05-23] MEDS ORDERED: HYDROmorphone 2 MG/ML VIAL IV ONE (08:10)
[2019-05-23] MEDS: METOPROLOL TARTRATE 50 MG TABLET PO SCH ×2 (08:27→20:43)
[2019-05-23] MEDS: 0.9 % SODIUM CHLORIDE 250 ML IV SCH ×2 (08:31→14:00)
[2019-05-23] MEDS ORDERED: BENZOCAINE/MENTHOL 1 LOZENGE PO PRN ×2 (08:46→10:18)
[2019-05-23] MEDS ORDERED: KETAMINE 100 MG/ML ML IV ONE (09:50)
[2019-05-23] MEDS ORDERED: PROPOFOL 200 MG/20 ML VIAL IV ONE (09:50)
[2019-05-23] MEDS ORDERED: PHENYLEPHRINE 10 MG/ML VIAL IV ONE (09:50)
[2019-05-23] MEDS ORDERED: ONDANSETRON 4 MG/2 ML VIAL IV ONE (09:50)
[2019-05-23] MEDS ORDERED: fentaNYL 100 MCG/2 ML VIAL IV ONE (09:50)
[2019-05-23] MEDS ORDERED: LIDOCAINE HCL/PF 100 MG/5 ML SYRINGE IV ONE (09:50)
[2019-05-23] MEDS ORDERED: ESMOLOL 100 MG/10 ML VIAL IV ONE (09:50)
[2019-05-23] MEDS ORDERED: DEXAMETHASONE 10 MG/ML VIAL IV ONE (09:50)
[2019-05-23] MEDS ORDERED: PROMETHAZINE 25 MG/ML VIAL IV PRN (10:18)
[2019-05-23] MEDS ORDERED: METHOCARBAMOL 1,000 MG/10 ML VIAL IV PRN (10:18)
[2019-05-23] MEDS ORDERED: ACETAMINOPHEN 1,000 MG/100 ML BOTTLE IV ONE (10:18)
[2019-05-23] MEDS ORDERED: MEPERIDINE 25 MG/ML SYRINGE IV PRN (10:18)
[2019-05-23] MEDS ORDERED: fentaNYL 100 MCG/2 ML VIAL IV PRN (10:18)
[2019-05-23] MEDS ORDERED: NALOXONE HCL 0.4 MG/ML VIAL IV PRN (10:18)
[2019-05-23] MEDS ORDERED: ONDANSETRON 4 MG/2 ML VIAL IV PRN (10:18)
[2019-05-23] MEDS ORDERED: ATROPINE SULFATE 0.4 MG/ML VIAL IV PRN (10:18)
[2019-05-23] MEDS ORDERED: FLUMAZENIL 0.1 MG/ML ML IV PRN (10:18)
[2019-05-23] MEDS ORDERED: diphenhydrAMINE 50 MG/ML VIAL IV PRN (10:18)
[2019-05-23] MEDS ORDERED: IPRATROPIUM/ALBUTEROL 3 ML AMPUL.NEB NEB PRN (10:18)
[2019-05-23] MEDS ORDERED: HYDROmorphone 2 MG/ML VIAL IV PRN (10:18)
[2019-05-23] MEDS ORDERED: ePHEDrine 50 MG/ML AMPUL IV PRN (10:18)
[2019-05-23] MEDS ORDERED: LACTATED RINGERS 1,000 ML IV SCH (10:30)
--- NOTE | 2019-05-23 10:35 | Brief Operative Note ---
Date of procedure: 05/23/19 Pre-op diagnosis: Right ankle chronic abscess and severe cellulitis Post-op diagnosis: same Procedure: Right ankle I and D ankle wound deep 3 cm by 3cm and hardware screws times 2 removal Grafts/Implants: Yes Anesthesia: GETA Complications: none Surgeon: Moshe Borja Planogrammer: Nomi Luna Estimated blood loss (cc): 100 Tourniquet Time (Minutes): 0 Specimens Removed/Pathology: none sent Condition: stable Disposition: PACU
[2019-05-23 10:41] LABS: Appearance,Urine HAZY; Bacteria,Urine 0 /hpf (0); Bilirubin,Urine NEG (NEG); Color,Urine YELLOW; Culture Indicated,Urine NO; Glucose,Urine (UA) NORM (NEG); Ketones,Urine NEG (NEG); Leukocyte Esterase,Urine TRACE /uL (NEG); Mucus,Urine MANY /hpf (0); Nitrate,Urine NEG (NEG); PH,Urine 5.5 (5.0-9.0); Protein,Urine 30 mg/dL (NEG); Urine Blood TRACE ery/mcL (<5); Urine RBC 7 /hpf (0-1); Urine Squamous Epithelial Cell 7 /hpf (0-4); Urine WBC 11 /hpf (0-4); Urobilinogen,Urine NORM (NEG)
[2019-05-23] MEDS: SPIRONOLACTONE 25 MG TABLET PO SCH (10:41)
[2019-05-23] MEDS: DOCUSATE SODIUM 100 MG CAPSULE PO SCH ×2 (10:41→20:43)
[2019-05-23] MEDS: LACTOBACILLUS 1 CAPSULE PO SCH ×2 (10:42→20:42)
[2019-05-23] MEDS: FUROSEMIDE 20 MG TABLET PO SCH (10:42)
[2019-05-23] MEDS: LEVOTHYROXINE 50 MCG TABLET PO SCH (10:42)
[2019-05-23] MEDS: 0.9 % SODIUM CHLORIDE 1,000 ML IV SCH ×2 (10:44→19:10)
--- NOTE | 2019-05-23 10:56 | Operative Note ---
DATE OF OPERATION: 05/23/2019 PREOPERATIVE DIAGNOSES: Right ankle abscess with retained hardware, chronic. POSTOPERATIVE DIAGNOSES: Right ankle abscess with retained hardware, chronic. PROCEDURE: Right abscess I and D with hardware removal x2 screws. SURGEON: Moshe Borja M.D. STAINED GLASS GLAZIER: Nomi Luna PA-C. The PA's assistance was required for the safe and efficient completion of the entire case. This provider's expertise and technical skill were required throughout the case. The PA assisted with preoperative coordination, intraoperative retraction, wound closure, dressing and splint application, as well as postoperative documentation and care coordination. ANESTHESIA: General LMA anesthesia. COMPLICATIONS: None. DESCRIPTION OF PROCEDURE: The patient was brought to the operating room and put to sleep with general LMA anesthesia. Once asleep, the patient had the right leg sterilely prepped and draped in the usual sterile fashion. A timeout was performed confirming this as the operative site by initials, consent form, and x-rays. We made an incision through the prior scar near the ankle. This was obviously the location of the abscess as we removed approximately 50 mL of purulent material. We were able to identify the abscess extending anterior to the ankle and over the screws medially. The fracture was completely healed. The abscess measured 3 x 3 cm below the fascial layer down to the bone layer. At this point after thorough irrigation and pulse lavage, we then removed the two screws, incising the tissues over the screws. These screws were removed from the bone of the medial malleolus. We irrigated thoroughly again and then irrigated another 3 liters through the wound. We placed an 8 mm JOESPH drain and then closed the tissue with 2-0 Monocryl and zen superficially. The patient tolerated this well. Sterile bandage was applied. RBH:cheryle Job ID: [id number] Doc ID: [id number] Moshe Borja MD
--- NOTE | 2019-05-23 11:28 | Consultation ---
DATE OF CONSULTATION: 05/23/2019 HISTORY OF PRESENT ILLNESS: This is an 79-year-old female who was transferred from [place]. The patient was seen there over a week ago and was admitted for IV antibiotics for cellulitis. She subsequently had a CT scan which showed an abscess around the medial malleolar and the screws. This has been a chronic problem. This has been ongoing now for a year and half. She had an original wound and there was difficulty in getting it healed. She was seen in the wound care. It healed and then she subsequently has developed an abscess and repeated infections and cellulitis. Her ESR was 102 and CRP was 33, with cellulitis extending long term up the calf. She has received significant antibiotics. ___ appeared to show some large abscess and gas in the subcutaneous tissues. PAST MEDICAL HISTORY: She has many medical problems including severe obesity, recurrent episodes of hematuria, restless leg syndrome, recurrent urinary tract infections, dizziness, insomnia, upper respiratory infections in the past with esophageal stenosis, constipation, bilateral knee pain, osteoarthritis, atrial fibrillation, congestive heart failure and peripheral vascular disease. 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 MEDICATIONS: See admit form of Hospitalist's, Dr. Alanis. She is on Rocephin and vancomycin for the current problem without resolution. ALLERGIES: ACYCLOVIR, ATENOLOL, CIPRO, MECLIZINE and MORPHINE. SURGICAL HISTORY: Quite complicated-she has had a vaginal cyst removed in 1970, left knee surgery 1999, colonoscopies, bowel surgeries for constipation, polyps and fissures, total abdominal hysterectomy, cholecystectomy, tonsillectomy, breast cyst aspiration bilateral carpal tunnel releases for carpometacarpal joint disease in the right hand, hemorrhoidectomy, cataract surgery in 2009. FAMILY HISTORY: Mother with lung cancer and myocardial infarction, father with alcohol abuse. SOCIAL HISTORY: She is actually able to give an excellent history. She quit smoking 50 years ago, does not currently smoke. REVIEW OF SYSTEMS: She has no active chest pain or shortness of breath. She denies present headache, nausea, vomiting. No cough, dyspnea or diarrhea. PHYSICAL EXAMINATION: GENERAL: A very pleasant elderly 79-year-old obese female who is cooperative, gives a good history. She is alert, awake, in no acute distress. HEENT: Head normocephalic/atraumatic. Eyes: Extraocular movements are intact. Pupils equal, round, reactive to light and accommodation. She is able to follow and track my finger through the range of motion around peripheral vision. NECK: Supple, nontender. CARDIOVASCULAR: Regular rate and rhythm. She has no murmurs today. No gallops. RESPIRATORY: She does have in the lower base on the left and right expiratory wheezes or rhonchi. ABDOMEN: Soft, nontender, without wounds. EXTREMITIES: She does have severe swelling with erythema extending on the medial aspect of the right leg extending from the medial side to about long term up the lower leg. She has good capillary refill. The foot is warm, erythema with scalded skin and exfoliation is quite evident. NEUROLOGICAL: She is alert, cooperative. She does have normal light touch sensation on the outside, but she even feels like this is slightly diminished. There is no weeping wound at this time. RADIOLOGIC STUDIES: A CT scan was reviewed that shows an abscess 2 x 3 cm around the screws medially with some soft tissue swelling and edema medially. IMPRESSION: Right ankle abscess around the hardware with large abscess and severe cellulitis. PLAN: Treatment will be incision and drainage with drain placement and continued antibiotics, hardware removal as well. The patient understands the risks and benefits and agrees to proceed. Some of these risks we covered were VA, heart attack and stroke, and even loss of the limb eventually if we cannot get this under control. She understands these and agrees to proceed. RBH:callum Job ID: [id number] Doc ID: [id number] Moshe Borja MD
[2019-05-23] MEDS: GABAPENTIN 400 MG CAPSULE PO SCH ×2 (12:33→16:37)
[2019-05-23] MEDS: CEFEPIME 2 GM VIAL IV SCH (12:58)
[2019-05-23] MEDS ORDERED: VANCOMYCIN 1,000 MG in 0.9 % SODIUM CHLORIDE 250 ML IV ONE (13:00)
[2019-05-23] MEDS: oxyCODONE/APAP 5/325MG TABLET PO PRN ×2 (14:09→20:43)
[2019-05-23] MEDS: ONDANSETRON 4 MG/2 ML VIAL IV PRN (17:41)
--- NOTE | 2019-05-23 18:59 | XRay Report ---
CLINICAL INFORMATION: Post Op COMPARISON: Preoperative films unavailable. FINDINGS: Side plate and screws transfix an old solid unified distal fibular fracture. No other osseous abnormality. This material partially obscures bone detail. Moderate talonavicular and navicular cuneiform degeneration noted. The ankle mortise and talar calcaneal joints are normal. There is marked diffuse soft tissue swelling with a drain within the soft tissues of the medial malleolus IMPRESSION: Postoperative findings as described Interpreted and Authenticated by: Justice Jay 05/23/19
[2019-05-23] MEDS: GABAPENTIN 300 MG CAPSULE PO SCH (20:42)
[2019-05-23] MEDS: NORTRIPTYLINE 25 MG CAPSULE PO SCH (20:42)
[2019-05-23] MEDS: MELATONIN 3 MG TABLET PO SCH (20:43)
[2019-05-23] MEDS: HEPARIN 5,000 UNIT/ML VIAL SQ SCH (20:44)
[2019-05-24] MEDS: METOPROLOL TARTRATE 5 MG/5 ML VIAL IV PRN (01:50)
[2019-05-24] MEDS: 0.9 % SODIUM CHLORIDE 250 ML IV SCH ×3 (04:17→19:08)
[2019-05-24] MEDS: 0.9 % SODIUM CHLORIDE 10 ML SYRINGE IV SCH ×5 (04:17→20:19)
[2019-05-24] MEDS: CLINDAMYCIN 600 MG in DEXTROSE 5% IN WATER 50 ML IV SCH ×3 (04:17→20:08)
[2019-05-24 06:11] LABS: Basophils # (Auto) 0.01 K/mcL (0.00-0.30); Basophils % (Auto) 0.1 % (0.0-2.0); Eosinophils # (Auto) 0 K/mcL (0.00-0.70); Eosinophils % (Auto) 0 % (0.0-7.0); Granulocytes % (Auto) 81.6 % (38.0-78.0); Hematocrit 27.6 % (34.1-44.9); Hemoglobin 8.7 g/dL (11.2-15.7); Lymphocytes # (Auto) 1.14 K/mcL (1.50-4.80); Lymphocytes % (Auto) 12.4 % (15.5-49.0); Mean Cell Volume 93.6 fL (80.0-100.0); Mean Corpuscular HGB Conc 31.5 g/dL (31.0-36.0); Mean Platelet Volume 9.4 fL (7.4-10.4); Monocytes # (Auto) 0.54 K/mcL (0.10-0.90); Monocytes % (Auto) 5.9 % (1.0-12.0); Platelet Count 302 K/mcL (140-440); RBC 2.95 M/mcL (3.59-5.38); Red Cell Distribution Width 14.6 % (11.5-14.5); WBC 9.2 K/mcL (4.50-11.00)
[2019-05-24 06:36] LABS: ALT/SGPT 33 U/l (0-40); AST/SGOT 24 U/l (0-37); Albumin 3.1 gm/dL (3.2-5.2); Albumin/Globulin Ratio 0.8 (1.0-2.3); Alkaline Phosphatase 231 U/L (39-117); Bilirubin,Direct < 0.2 mg/dL (0.0-0.3); Bilirubin,Total 0.3 mg/dL (0.0-1.0); Blood Urea Nitrogen 27 mg/dl (8-23); Calcium 9.1 mg/dl (8.6-10.4); Carbon Dioxide 23 mmol/L (22-30); Chloride 102 mmol/L (96-108); Globulin 3.7 gm/dL (2.2-3.7); Glomerular Filtration Rate 60; Glucose 139 mg/dL (70-105); Lactate Dehydrogenase 156 U/L (94-250); Phosphorous 3.9 mg/dL (2.7-4.5); Triglycerides 164 mg/dl (<150); Uric Acid 7.1 mg/dL (2.5-8.0)
[2019-05-24] MEDS ORDERED: DILTIAZEM 125 MG in DEXTROSE 5% IN WATER 100 ML IV PRN (07:00)
[2019-05-24] MEDS: DILTIAZEM 125 MG in DEXTROSE 5% IN WATER 100 ML IV SCH (07:04)
--- NOTE | 2019-05-24 07:44 | Orthopedic Progress Note ---
Subjective Patient information: Note initiated : 05/24/19 at 7:38 am Service Date, if different from initiated Date: [] Patient: Peg Santoyo 79 y/o F admitted on 05/22/19 for Abscess of the Right Ankle with Cellulitis. Chief Complaint: [Pt is stable this morning on post operative day 1 without any significant concerns or complaints. Patients vital signs have remained stable. Patients dressing is dry and is grossly intact from a neurovas cular and motor standpoint. Patients 10 point ROS is otherwise negative. ] Objective Vital signs: Vital Signs Temp Pulse Pulse Resp BP BP Pulse Ox 05/24/19 04:15 125 H 11 L 100 05/24/19 04:01 96.9 F L 11 L 111/75 100 05/24/19 03:00 98 H 05/24/19 02:05 118 H 22 131/82 99 05/24/19 02:00 99 H 18 95 05/24/19 00:06 12 05/24/19 00:01 97.2 F 107 H 12 114/73 97 05/23/19 22:02 14 105/51 05/23/19 21:01 112 H 18 116/80 98 05/23/19 20:07 97.3 F 108 H 12 110/60 95 05/23/19 20:02 114 H 11 L 110/60 97 05/23/19 19:54 97 05/23/19 19:03 111 H 22 112/77 94 05/23/19 18:46 111 H 17 126/67 90 05/23/19 18:31 109 H 15 123/71 90 05/23/19 18:18 108 H 13 110/62 93 05/23/19 18:01 112 H 16 109/75 95 05/23/19 17:46 119 H 20 113/75 93 05/23/19 17:31 22 115/76 05/23/19 17:16 24 H 110/79 05/23/19 17:01 110 H 20 96/70 95 05/23/19 16:46 108 H 13 102/70 95 05/23/19 16:45 96.9 F L 20 102/70 95 05/23/19 16:31 130 H 17 93/81 98 05/23/19 16:16 87 17 103/66 95 05/23/19 15:46 106 H 10 L 95/58 94 05/23/19 15:45 97 F 20 95/58 95 05/23/19 15:32 106 H 15 93/63 93 05/23/19 15:16 108 H 14 100/65 93 05/23/19 15:01 104 H 19 93/62 92 05/23/19 14:50 108 H 19 107/60 89 L 06 14:47 14 82/64 05/23/19 14:45 97.2 F 20 107/60 92 05/23/19 14:38 21 115/62 05/23/19 14:15 96.7 F L 108 H 13 91/58 96 05/23/19 14:02 93 H 11 L 95/55 94 05/23/19 14:00 105 H 13 84/57 96 05/23/19 13:45 99 H 20 93/65 95 05/23/19 13:31 101 H 13 98/59 94 05/23/19 13:18 118 H 14 90/59 93 05/23/19 13:15 97.1 F 113 H 15 84/63 88 L 05/23/19 13:02 89 15 93/59 96 05/23/19 13:00 89 21 88/58 96 05/23/19 12:45 115 H 16 96/64 97 05/23/19 12:30 97.0 F 90 23 H 90/54 98 05/23/19 12:20 122 H 16 100/72 97 05/23/19 12:15 97.0 F 91 H 12 84/61 97 05/23/19 12:00 97.9 F 112 H 11 L 102/64 99 05/23/19 11:59 106 H 11 L 102/76 99 05/23/19 11:48 117 H 102/76 98 05/23/19 11:45 97.9 F 20 102/76 98 05/23/19 11:42 112 H 15 109/64 98 05/23/19 11:31 97.8 F 104 H 12 104/56 98 05/23/19 11:16 97.8 F 112 H 13 101/55 99 05/23/19 11:11 97.7 F 107 H 12 95/57 99 05/23/19 11:06 97.8 F 115 H 16 104/70 100 05/23/19 11:01 98.2 F 115 H 18 108/78 100 05/23/19 10:56 98.0 F 110 H 13 105/63 100 05/23/19 10:51 98.1 F 116 H 16 110/82 100 05/23/19 09:00 123 H 22 114/71 91 05/23/19 08:46 109 H 20 101/64 93 05/23/19 08:31 96 H 16 102/62 99 05/23/19 08:16 131 H 16 111/66 99 05/23/19 07:46 107 H 19 110/56 100 Intake and Output 05/23/19 05/24/19 05/24/19 21:59 05:59 13:59 Intake Total 658 100 Output Total 751 90 300 Balance -93 10 -300 Intake: IV 478 Sodium Chloride 0.9% 250 ml @ 120 20 mls/hr IV .[id number] [facility] Rx#: [id number] Cleocin 600 mg In Dextrose 5% 108 in Water 50 ml @ 100 mls/hr IV Q8H [facility] Rx#:[id number] Vancomycin 1,000 mg In Sodium 250 Chloride 0.9% 250 ml @ 250 mls/ hr IV ONCE ONE Rx#:[id number] Oral 180 100 Output: Drainage 15 Right Lower Leg 15 Urine Catheter Amount 600 Void Amount 75 300 # of times incontinent of urine 1 Emesis 150 Other: Meal Dinner Percent of Meal Consumed 50% Feeding Ability Assist with Tray Set Up Urine Appearance Clear Cloudy Clear Sediment Urine Color Dark Yellow Bright Yellow Dark Yellow Urine Odor Normal Normal Strong Weight 215 lb 11.2 oz Intake & Output: Intake & Output 05/23/19 05/24/19 05/24/19 21:59 05:59 13:59 Intake Total 658 100 Output Total 751 90 300 Balance -93 10 -300 Weight 215 lb 11.2 oz Intake: IV 478 Sodium Chloride 0.9% 250 ml @ 120 20 mls/hr IV .[id number] [facility] Rx#: [id number] Cleocin 600 mg In Dextrose 5% 108 in Water 50 ml @ 100 mls/hr IV Q8H [facility] Rx#:[id number] Vancomycin 1,000 mg In Sodium 250 Chloride 0.9% 250 ml @ 250 mls/ hr IV ONCE ONE Rx#:[id number] Oral 180 100 Output: Drainage 15 Right Lower Leg 15 Urine Catheter Amount 600 Void Amount 75 300 # of times incontinent of urine 1 Emesis 150 Other: Meal Dinner Percent of Meal Consumed 50% Feeding Ability Assist with Tray Set Up Urine Appearance Clear Cloudy Clear Sediment Urine Color Dark Yellow Bright Yellow Dark Yellow Urine Odor Normal Normal Strong Incision: Yes healing Incision clean and dry: Yes Dressing: Yes clean, Yes dry Weight bearing status: as tolerated Neurological exam IM: Yes motor sensory intact, Yes neurovascular intact Extremities exam IM: Yes Foot pink and warm, Yes neurovascular intact - Labs CBC & BMP: 05/24/19 04:35 05/24/19 04:35 Labs: 05/24/19 05/23/19 04:35 05:10 Hgb 8.7 L 9.6 L Hct 27.6 L 30.0 L Assessment and Plan (1) Cellulitis and abscess of foot Status: Acute (2) Wound, open, lower limb with complication Status: Acute
[2019-05-24] MEDS: ONDANSETRON 4 MG/2 ML VIAL IV PRN ×2 (07:55→12:49)
[2019-05-24] MEDS: LEVOTHYROXINE 50 MCG TABLET PO SCH (07:56)
[2019-05-24] MEDS: INSULIN LISPRO 1 UNIT/0.01 ML UNIT SQ SCH ×4 (08:37→19:23)
--- NOTE | 2019-05-24 09:07 | General Surgery Consult Note ---
History of Present Illness Patient information: Note initiated : 05/24/19 at 9:01 am Service Date, if different from initiated Date: [] Patient: Peg Santoyo 79 y/o F admitted on 05/22/19 for Abscess of the Right Ankle with Cellulitis. Chief Complaint: [] Consult date: 05/24/19 Requesting physician: Gonzalez Alanis (Wound Care (Post Op)) History of present illness: I saw this patient post operatively along with GIRISH Gonzaelz Inpatient wound care nurse. Reviewed progress with Felipa STOUT, taking care of this patient. Established patient at wound care in past, admitted for cellulitis and sepsis via ER, underwent debridement of RIGHT leg wound and removal of hardware yesterday. Patient is resting comfortably, HD stable and L/E of RIGHT leg reveals clean dressings, functioning JOESPH drain with scant heme / serous drainage. Exposed foot is clean, pink, warm, dry and NV intact. Medications and Allergies Home Medications Medication Instructions Recorded Confirmed Type Acetaminophen [Shake That Ache] 500 mg PO Q4HP PRN 11/10/17 05/22/19 History Aspirin [Aspirin EC] 81 mg PO DAILY 11/10/17 05/22/19 History Benzonatate [Tessalon] 100 mg PO Q6HP PRN 11/10/17 05/22/19 History Cholecalciferol (Vitamin D3) 2,000 unit PO QAM 11/10/17 05/22/19 History [Vitamin D3] Cyanocobalamin (Vitamin B-12) 1,000 mcg SL DAILY 11/10/17 05/22/19 History [Vitamin B-12] Dabigatran Etexilate Mesylate 150 mg PO BID 11/10/17 05/22/19 History [Pradaxa] Docusate Sodium [Colace] 100 mg PO QAM 11/10/17 05/22/19 History Ferrous Sulfate [Iron] 325 mg PO DAILY 11/10/17 05/22/19 History Folic Acid 1 mg PO DAILY 11/10/17 05/22/19 History Gabapentin [Neurontin] 2 capsule PO HS 11/10/17 05/22/19 History Inulin [Child's Fiber Select 1.5 gm PO QDAY 11/10/17 05/22/19 History Gummies] Loperamide [Imodium] 2 mg PO PRN PRN 11/10/17 05/22/19 History Magnesium Hydroxide [Milk of 30 ml PO DAILYP PRN 11/10/17 05/22/19 History Magnesia] Melatonin [Melatin] 3 mg PO HS 11/10/17 05/22/19 History Metoclopramide HCl [Metoclopramide 5 mg PO ACHS 11/10/17 05/22/19 History HCl Odt] Metoprolol Succinate [Toprol Xl] 25 mg PO DAILY 11/10/17 05/22/19 History Metoprolol Succinate [Toprol Xl] 100 mg PO QDAY 11/10/17 05/22/19 History Nortriptyline HCl [Pamelor] 150 mg PO HS 11/10/17 05/22/19 History Polyethylene Glycol 3350 [Miralax] 17 gm PO Q48 11/10/17 05/22/19 History Spironolactone [Aldactone] 0.5 tab PO DAILY 11/10/17 05/22/19 History Vitamin E (Dl,Tocopheryl Acet) 200 unit PO DAILY 11/10/17 05/22/19 History [Vitamin E] Eucalyptus/Menthol [Cough Drops] 1 dose PO PRN PRN 05/22/19 05/22/19 History Fluconazole [Diflucan] 150 mg PO DAILY PRN 05/22/19 05/22/19 History Furosemide [Lasix] 1 tab PO DAILY 05/22/19 05/22/19 History Gabapentin [Neurontin] 1 capsule PO TID 05/22/19 05/22/19 History Lactobacillus [Culturelle] 1 cap PO DAILY 05/22/19 05/22/19 History Levothyroxine [Synthroid] 50 mcg PO DAILY 05/22/19 05/22/19 History Nystatin 1 dose TOPICAL BID 05/22/19 05/22/19 History Potassium Chloride [Klor-Con 10] 1 tab PO DAILY 05/22/19 05/22/19 History guaiFENesin [Robitussin] 15 ml PO Q6HP PRN 05/22/19 05/22/19 History Allergies Allergy/AdvReac Type Severity Reaction Status Date / Time morphine Allergy Mild Itchy Nose Verified 03/12/18 10:39 acyclovir Allergy Unknown Unknown Verified 03/12/18 10:39 atenolol [From Tenormin] Allergy Unknown Unknown Verified 03/12/18 10:39 ciprofloxacin [From Cipro] Allergy Unknown Unknown Verified 03/12/18 10:39 meclizine Allergy Unknown Unknown Verified 03/12/18 10:39 nitrofurantoin Allergy Unknown Unknown Verified 03/12/18 10:39 [From Macrobid] promethazine Allergy Unknown Unknown Verified 03/12/18 10:39 rosuvastatin [From Crestor] Allergy Unknown Unknown Verified 03/12/18 10:39 sulfamethoxazole Allergy Unknown Unknown Verified 03/12/18 10:39 [From Bactrim] trimethoprim [From Bactrim] Allergy Unknown Unknown Verified 03/12/18 10:39 Exam Temp Pulse Resp BP Pulse Ox 96.9 F L 125 H 11 L 111/75 100 05/24/19 04:01 05/24/19 04:15 05/24/19 04:15 05/24/19 04:01 05/24/19 04:15 - General physical appearance well developed, well nourished, no distress, no pain, obese - Eyes PERRL, normal ocular movement - ENT normal pinna, normal nares, normal mucosa, no congestion - Head Head exam IM: Present: atraumatic, normal inspection - Neck no masses, no bruits, trachea midline, no venous distension - Cardiovascular Cardiovascular exam IM: Present: normal rate and rhythm - Respiratory normal respiratory effort, clear to auscultation - Abdomen Abdomen: Present: soft, non tender, bowel sounds - Integumentary Present: other (SKIN RLE is unremarkabale, normal color, tissue turgor. Toes ar PWD and nails are clean, ) - Neurologic Present: normal coordination, other (Unremarkable normal examination.) - Musculoskeletal Present: other (Bed confined at this time. RIGHT foot and leg elevated on Heelz Up pillow.) - Psychiatric Present: oriented to time, oriented to person, oriented to place, speech is normal, memory intact Results - Labs 05/24/19 04:35 05/24/19 04:35 Abnormal lab results 05/23/19 05/24/19 05/24/19 Range/Units 08:50 04:35 04:35 RBC 2.95 L (3.59-5.38) M/mcL Hgb 8.7 L (11.2-15.7) g/dL Hct 27.6 L (34.1-44.9) % RDW 14.6 H (11.5-14.5) % Gran % 81.6 H (38.0-78.0) % Lymph % (Auto) 12.4 L (15.5-49.0) % Lymph # (Auto) 1.14 L (1.50-4.80) K/mcL BUN 27 H (8-23) mg/dl Glucose 139 H (70-105) mg/dL GGT 538 H (5-36) U/L Alkaline Phosphatase 231 H (39-117) U/L Albumin 3.1 L (3.2-5.2) gm/dL Albumin/Globulin Ratio 0.8 L (1.0-2.3) Triglycerides 164 H (<150) mg/dl Urine Protein 30 A (NEG) mg/dL Urine Occult Blood Trace A (<5) letitia/mcL Urine RBC 7 H (0-1) /hpf Urine WBC 11 H (0-4) /hpf Ur Squamous Epith Cells 7 H (0-4) /hpf Urine Mucus Many A (0) /hpf Diabetes panel 05/24/19 Range/Units 04:35 Sodium 138 (133-145) mmol/L Potassium 4.8 (3.3-5.1) mmol/L Chloride 102 (96-108) mmol/L Carbon Dioxide 23 (22-30) mmol/L BUN 27 H (8-23) mg/dl Creatinine 0.9 (0.6-1.1) mg/dl Glucose 139 H (70-105) mg/dL Calcium 9.1 (8.6-10.4) mg/dl AST 24 (0-37) U/l ALT 33 (0-40) U/l Alkaline Phosphatase 231 H (39-117) U/L Total Protein 6.8 (5.9-8.4) gm/dL Albumin 3.1 L (3.2-5.2) gm/dL Triglycerides 164 H (<150) mg/dl Calcium panel 05/24/19 Range/Units 04:35 Calcium 9.1 (8.6-10.4) mg/dl Phosphorus 3.9 (2.7-4.5) mg/dL Albumin 3.1 L (3.2-5.2) gm/dL Pituitary panel 05/24/19 Range/Units 04:35 Sodium 138 (133-145) mmol/L Potassium 4.8 (3.3-5.1) mmol/L Chloride 102 (96-108) mmol/L Carbon Dioxide 23 (22-30) mmol/L BUN 27 H (8-23) mg/dl Creatinine 0.9 (0.6-1.1) mg/dl Glucose 139 H (70-105) mg/dL Calcium 9.1 (8.6-10.4) mg/dl Adrenal panel 05/24/19 Range/Units 04:35 Sodium 138 (133-145) mmol/L Potassium 4.8 (3.3-5.1) mmol/L Chloride 102 (96-108) mmol/L Carbon Dioxide 23 (22-30) mmol/L BUN 27 H (8-23) mg/dl Creatinine 0.9 (0.6-1.1) mg/dl Glucose 139 H (70-105) mg/dL Calcium 9.1 (8.6-10.4) mg/dl Total Bilirubin 0.3 (0.0-1.0) mg/dL AST 24 (0-37) U/l ALT 33 (0-40) U/l Alkaline Phosphatase 231 H (39-117) U/L Total Protein 6.8 (5.9-8.4) gm/dL Albumin 3.1 L (3.2-5.2) gm/dL All other labs normal. Assessment and Plan (1) Encounter for postoperative wound care Status: Acute Priority: Medium Comment: Assessment: Satisfactory post surgical progress. Plan: Following patient in hospital and will continue to follow in wound clinic after after discharge. (2) Wound, open, lower limb with complication Status: Acute Priority: Medium Qualifiers: Encounter type: initial encounter Laterality: right Qualified Code(s): S81.801A - Unspecified open wound, right lower leg, initial encounter
[2019-05-24] MEDS: METOCLOPRAMIDE 10 MG/2 ML VIAL IV SCH ×3 (09:10→17:05)
[2019-05-24] MEDS: LACTOBACILLUS 1 CAPSULE PO SCH ×2 (09:31→19:07)
[2019-05-24] MEDS: GABAPENTIN 400 MG CAPSULE PO SCH ×3 (09:31→15:54)
[2019-05-24] MEDS: DOCUSATE SODIUM 100 MG CAPSULE PO SCH ×2 (09:31→19:07)
[2019-05-24] MEDS: SPIRONOLACTONE 25 MG TABLET PO SCH (09:31)
[2019-05-24] MEDS: FUROSEMIDE 20 MG TABLET PO SCH (09:31)
[2019-05-24] MEDS: METOPROLOL TARTRATE 50 MG TABLET PO SCH (09:32)
[2019-05-24] MEDS: HEPARIN 5,000 UNIT/ML VIAL SQ SCH ×2 (09:33→19:08)
--- NOTE | 2019-05-24 09:56 | Internal Med Progress Note ---
Medical - PN: Subj Patient information: Note initiated : 05/24/19 at 9:54 am Service Date, if different from initiated Date: [] Patient: Peg Santoyo a 79 y/o F admitted on 05/22/19 for Abscess of the Right Ankle with Cellulitis. Chief Complaint: [] Interval history: Ms. Santoyo is a 79 year old F 79-year-old female presented to [place] ED on the 3rd for right foot swelling /pain and redness as well as fever. was also in A. fib RVR 150. She had a previous bimalleolar fracture of that right ankle in the past. She needed a debridement of that wound after she had had the original fracture repaired back in 2018. She has a chronic wound in that location. And has been followed by [facility]. Case was discussed with Dr. Borja initially in the ER and patient was started IV antibiotics to follow-up with him early in the week. However it seems to be progressing a CT done today shows a large abscess with gas. She has been on a diltiazem drip which is been weaned down to 5 mg/h. ESR is 102 and CRP 33. White blood cell count 16 down from 20 the previous day. He is also being treated for UTI. Currently on vancomycin and Rocephin. Patient states it all started when she tripped a week ago. Since that time developed increasing redness swelling and tenderness. Reports fevers. / Slept well. No overnight events. The diltiazem drip 5 mg stopped last night but restarted about an hour ago for heart rates to the 110's. Transition to oral beta-kirby 05/23-patient doing well. No overnight events. No concerns per staff. JOESPH drain clotted blood. Dressing change ongoing. Continuing postoperative care per orthopedics. No fever chills. Intermittent nausea this morning. White count down from 3.6-9.2. - Constitutional Vitals: Vital Signs Temp Pulse Resp BP Pulse Ox 96.9 F L 125 H 11 L 111/75 100 05/24/19 04:01 05/24/19 04:15 05/24/19 04:15 05/24/19 04:01 05/24/19 04:15 Period Temp Pulse Resp BP Sys/Ennis Pulse Ox Last 24 Hr 96.7 F-98.2 F 87-130 10-24 82-131/51-82 88-100 Intake and Output 05/23/19 05/24/19 05/24/19 21:59 05:59 13:59 Intake Total 658 100 Output Total 751 90 300 Balance -93 10 -300 Weight 215 lb 11.2 oz Intake & Output: Intake & Output 05/23/19 05/24/19 05/24/19 21:59 05:59 13:59 Intake Total 658 100 Output Total 751 90 300 Balance -93 10 -300 Weight 215 lb 11.2 oz Intake: IV 478 Sodium Chloride 0.9% 250 ml @ 120 20 mls/hr IV .[id number] [facility] Rx#: [id number] Cleocin 600 mg In Dextrose 5% 108 in Water 50 ml @ 100 mls/hr IV Q8H [facility] Rx#:[id number] Vancomycin 1,000 mg In Sodium 250 Chloride 0.9% 250 ml @ 250 mls/ hr IV ONCE ONE Rx#:[id number] Oral 180 100 Output: Drainage 15 Right Lower Leg 15 Urine Catheter Amount 600 Void Amount 75 300 # of times incontinent of urine 1 Emesis 150 Other: Meal Dinner Percent of Meal Consumed 50% Feeding Ability Assist with Tray Set Up Urine Appearance Clear Cloudy Clear Sediment Urine Color Dark Yellow Bright Yellow Dark Yellow Urine Odor Normal Normal Strong General appearance: morbidly obese Exam: Alert oriented Nonlabored breathing No anxiety Nondistended abdomen Medical - PN: Obj Da - Labs CBC & Chem 7: 05/24/19 04:35 05/24/19 04:35 Labs: Abnormal Lab Results 05/24/19 05/24/19 05/23/19 04:35 04:35 08:50 WBC RBC 2.95 L Hgb 8.7 L Hct 27.6 L RDW 14.6 H Gran % 81.6 H Lymph % (Auto) 12.4 L Gran # Lymph # (Auto) 1.14 L [place] # (Auto) ESR Carbon Dioxide BUN 27 H Glucose 139 H GGT 538 H Alkaline Phosphatase 231 H C-Reactive Protein Albumin 3.1 L Globulin Albumin/Globulin Ratio 0.8 L Triglycerides 164 H Urine Protein 30 A Urine Occult Blood Trace A Urine RBC 7 H Urine WBC 11 H Ur Squamous Epith Cells 7 H Urine Mucus Many A 05/23/19 05/23/19 05:10 05:10 WBC 13.6 H RBC 3.24 L Hgb 9.6 L Hct 30.0 L RDW 14.8 H Gran % Lymph % (Auto) 13.6 L Gran # 10.31 H Lymph # (Auto) [place] # (Auto) 1.10 H ESR 118 H Carbon Dioxide 21 L BUN Glucose 112 H GGT 496 H Alkaline Phosphatase 212 H C-Reactive Protein 30.8 H Albumin 2.9 L Globulin 4.1 H Albumin/Globulin Ratio 0.7 L Triglycerides Urine Protein Urine Occult Blood Urine RBC Urine WBC Ur Squamous Epith Cells Urine Mucus Meds: Medications Acetaminophen (Tylenol) 650 mg PO Q6HP PRN PRN Reason: PAIN/FEVER > 101 Albuterol/Ipratropium (Duoneb) 3 ml NEB Q4HP PRN PRN Reason: Shortness Of Breath Cefepime HCl (Maxipime) 2 gm IV Q12H [facility]; Protocol Dextrose (Dextrose 50%) 0 ml IV UD PRN PRN Reason: Hypoglycemia Diagnostic Test (Pha) (Accu-Chek) 1 each FS ACHS [facility] Last Admin: 05/24/19 07:56 Dose: 1 each Documented by: Docusate Sodium (Colace) 100 mg PO BID [facility] Last Admin: 05/24/19 09:31 Dose: 100 mg Documented by: Furosemide (Lasix) 20 mg PO DAILY [facility] Last Admin: 05/24/19 09:31 Dose: 20 mg Documented by: Gabapentin (Neurontin) 600 mg PO [facility] Last Admin: 05/23/19 20:42 Dose: 600 mg Documented by: Gabapentin (Neurontin) 400 mg PO TID@0800,1200,1600 [facility] Last Admin: 05/24/19 09:31 Dose: 400 mg Documented by: Glucose (Insta-Glucose) 15 gm PO PRN PRN PRN Reason: Hypoglycemia Heparin Sodium (Porcine) (Heparin) 5,000 unit SQ Q12 [facility] Last Admin: 05/24/19 09:33 Dose: 5,000 unit Documented by: Potassium Chloride 40 meq/ (Dextrose) 520 mls @ 130 mls/hr IV UD PRN PRN Reason: Potassium < 3 Magnesium Sulfate (Magnesium Sulfate) 2 gm in 50 mls @ 50 mls/hr IV UD PRN PRN Reason: Magnesium </= 1.6 Clindamycin Phosphate 600 mg/ (Dextrose) 54 mls @ 100 mls/hr IV Q8H [facility]; Protocol Last Admin: 05/24/19 04:17 Dose: 100 mls/hr Documented by: Sodium Chloride (Sodium Chloride 0.9%) 250 mls @ 20 mls/hr IV .[id number] [facility] Last Admin: 05/24/19 04:17 Dose: Not Given Documented by: Diltiazem HCl 125 mg/ Dextrose 125 mls @ 5 mls/hr IV Q12HP PRN; Protocol PRN Reason: Tachyarrhythmias Insulin Human Lispro (Humalog) 0 unit SQ [facility]; Protocol Last Admin: 05/24/19 08:37 Dose: Not Given Documented by: Lactobacillus Rhamnosus (Culturelle) 1 cap PO BID [facility] Last Admin: 05/24/19 09:31 Dose: 1 cap Documented by: Levothyroxine Sodium (Synthroid) 50 mcg PO [facility] Last Admin: 05/24/19 07:56 Dose: 50 mcg Documented by: Melatonin (Melatonin 3mg Tablet) 3 mg PO [facility] Last Admin: 05/23/19 20:43 Dose: 3 mg Documented by: Metoclopramide HCl (Reglan) [address] [facility] Last Admin: 05/24/19 09:10 Dose: 5 mg Documented by: Metoprolol Tartrate (Lopressor) 5 mg IV Q2HP PRN PRN Reason: Tachyarrhythmias HR>110 Last Admin: 05/24/19 01:50 Dose: 5 mg Documented by: Metoprolol Tartrate (Lopressor) 50 mg PO BID [facility] Last Admin: 05/24/19 09:32 Dose: 50 mg Documented by: Nortriptyline HCl (Pamelor) 150 mg PO [facility] Last Admin: 05/23/19 20:42 Dose: 150 mg Documented by: Ondansetron HCl (Zofran) 4 mg IV Q4HP PRN PRN Reason: Nausea And Vomiting Last Admin: 05/24/19 07:55 Dose: 4 mg Documented by: Oxycodone/Acetaminophen (Percocet 5-325 Mg) 1 tab PO Q4HP PRN PRN Reason: PAIN LEVEL 3-6 Last Admin: 05/23/19 20:43 Dose: 1 tab Documented by: Polyethylene Glycol (Miralax) 17 gm PO DAILYP PRN PRN Reason: Constipation Potassium Chloride (Kdur) 40 meq PO UD PRN PRN Reason: Potssium is 3-3.5 Potassium Chloride (Kdur) 40 meq PO UD PRN PRN Reason: Potassium < 3 Scopolamine (Transderm-Scop) 1 patch TOPICAL PREOP PRN PRN Reason: Nausea And Vomiting Senna (Senokot) 2 tab PO DAILYP PRN PRN Reason: Constipation Sodium Chloride (Saline Flush) 10 ml IV Q8 [facility] Last Admin: 05/24/19 04:17 Dose: Not Given Documented by: Sodium Chloride (Saline Flush) 10 ml IV Q8 [facility] Last Admin: 05/24/19 05:07 Dose: Not Given Documented by: Spironolactone (Aldactone) 12.5 mg PO DAILY [facility] Last Admin: 05/24/19 09:31 Dose: 12.5 mg Documented by: Throat Lozenges (Cepacol) 1 lozenge PO PRN PRN PRN Reason: Sore Throat Vancomycin HCl (Vancomycin Per Pharmacy) 1 order IV UD [facility]; Protocol Medical - PN: A/P - Time Spent With Patient Total time spent is greater than 50% in coordination of care (as documented) at patient's floor/unit and/or counseling patient: 25 - 35 minutes - Narrative A/P Narrative: *Right ankle cellulitis/abscess with gas, hardware present from previous fracture: -CT with abscess medially. past-status post I&D. Cultures gram-positive cocci - *Chronic RLE wound: Wound care consult *SIRS: Resolved *UTI: On antibiotic coverage *DM w/neuropathy: Apparently diet controlled, not on any medications *AFib RVR: Rate controlled now on beta-kirby. Off diltiazem drip. *h/o systolic(45%)/diastolic CHF: *CKD III: *Hypothyroidism-on home dose thyroxine *?Dementia: At baseline *Anxiety/depression: *Obesity: Continue directed therapies * P: -cont Vanc/Zosyn, clinda -pending WC and intraop cxs -Dr. Guaman wound care -ASA held for surgery -cont home aldactone/lasix -SSI -pt/ot -ppx: Restart Pradaxa Medical - PN: Qual - VTE Deep Vein Thrombosis/Pulmonary Embolism Present on Admission: No
[2019-05-24] MEDS: CEFEPIME 2 GM VIAL IV SCH ×2 (10:00→22:22)
[2019-05-24] MEDS: ACETAMINOPHEN 325 MG TABLET PO PRN ×2 (10:12→19:08)
[2019-05-24] MEDS: VANCOMYCIN 1,000 MG in 0.9 % SODIUM CHLORIDE 250 ML IV SCH (10:13)
[2019-05-24] MEDS: oxyCODONE/APAP 5/325MG TABLET PO PRN (12:49)
[2019-05-24] MEDS ORDERED: METOPROLOL TARTRATE 50 MG TABLET PO ONE (18:55)
[2019-05-24] MEDS: MELATONIN 3 MG TABLET PO SCH (19:07)
[2019-05-24] MEDS: GABAPENTIN 300 MG CAPSULE PO SCH (19:07)
[2019-05-24] MEDS: SENNOSIDES 1 TABLET PO PRN (19:07)
[2019-05-24] MEDS: NORTRIPTYLINE 25 MG CAPSULE PO SCH (19:07)
[2019-05-24] MEDS ORDERED: DABIGATRAN ETEXILATE MESYLATE 150 MG PO SCH (21:00)
[2019-05-25] MEDS: 0.9 % SODIUM CHLORIDE 250 ML IV SCH ×2 (04:14→15:29)
[2019-05-25] MEDS: CLINDAMYCIN 600 MG in DEXTROSE 5% IN WATER 50 ML IV SCH ×3 (04:17→20:51)
[2019-05-25] MEDS: 0.9 % SODIUM CHLORIDE 10 ML SYRINGE IV SCH ×3 (04:18→20:54)
[2019-05-25] MEDS: LEVOTHYROXINE 50 MCG TABLET PO SCH (07:23)
[2019-05-25] MEDS: METOCLOPRAMIDE 10 MG/2 ML VIAL IV SCH ×3 (07:24→18:08)
[2019-05-25] MEDS: INSULIN LISPRO 1 UNIT/0.01 ML UNIT SQ SCH ×4 (07:39→20:52)
[2019-05-25] MEDS: GABAPENTIN 400 MG CAPSULE PO SCH ×3 (07:42→15:48)
[2019-05-25] MEDS: ACETAMINOPHEN 325 MG TABLET PO PRN (07:54)
[2019-05-25] MEDS ORDERED: DOCUSATE SODIUM 100 MG CAPSULE PO SCH (09:00)
[2019-05-25] MEDS: DOCUSATE SODIUM 100 MG CAPSULE PO SCH ×2 (09:09→20:53)
[2019-05-25] MEDS: HEPARIN 5,000 UNIT/ML VIAL SQ SCH ×2 (09:10→20:53)
[2019-05-25] MEDS: LACTOBACILLUS 1 CAPSULE PO SCH ×2 (09:10→20:53)
[2019-05-25] MEDS: CEFEPIME 2 GM VIAL IV SCH ×2 (09:52→21:02)
[2019-05-25] MEDS: VANCOMYCIN 1,000 MG in 0.9 % SODIUM CHLORIDE 250 ML IV SCH (09:56)
[2019-05-25] MEDS: SPIRONOLACTONE 25 MG TABLET PO SCH (10:06)
[2019-05-25] MEDS: METOPROLOL SUCCINATE 50 MG TAB.XL.24H PO SCH (10:07)
[2019-05-25] MEDS: METOPROLOL SUCCINATE 25 MG TAB.XL.24H PO SCH (10:07)
[2019-05-25] MEDS: FUROSEMIDE 20 MG TABLET PO SCH (10:37)
--- NOTE | 2019-05-25 10:59 | General Surgery Progress Note ---
Subjective Patient reports: no new complaints (Patient had an uneventful night. Ambulated in room. WBAT. ) Narrative: Note initiated : 05/25/19 at 10:57 am Service Date, if different from initiated Date: [] Patient: Peg Santoyo 79 y/o F admitted on 05/22/19 for Abscess of the Right Ankle with Cellulitis. Chief Complaint: [] Objective Temp Pulse Resp BP Pulse Ox 96.7 F L 118 H 20 106/69 90 05/25/19 08:00 05/25/19 04:14 05/25/19 08:01 05/25/19 08:01 05/25/19 09:31 AVSS. No changes ROSA. Dressings changed. Wound healing well. Well approximated zen. Functioning drains. Labs reviewed. - Additional Data Intake & Output - Last 24 hours: Intake & Output 05/23/19 05/24/19 05/25/19 05/26/19 05:59 05:59 05:59 05:59 Intake Total 216 2178 1193 Output Total 251 881 318 825 Balance -35 1297 875 -825 Weight 214 lb 215 lb 11.2 oz 217 lb 1.6 oz - Labs 05/24/19 04:35 05/24/19 04:35 Assessment and Plan (1) Encounter for postoperative wound care Problem details: Assessment: Satisfactory post surgical progress. Plan: Following patient in hospital and will continue to follow in wound clinic after after discharge. Status: Acute Current Visit: Yes (2) Wound, open, lower limb with complication Status: Acute Current Visit: No - Narrative A/P Narrative: Assessment: Satisfactory progress from wound care point of view. Drain removal after checking with Orthopedics. Wound care orders per Lisa STOUT, Inpatient wound care nurse. Plan: O K for discharge from wound care point after arrangements completed. F/U at wound care Clinic in 2 weeks. - Time Spent With Patient Total time spent is greater than 50% in coordination of care (as documented) at patient's floor/unit and/or counseling patient:
--- NOTE | 2019-05-25 11:03 | Internal Med Progress Note ---
Medical - PN: Subj Patient information: Note initiated : 05/25/19 at 11:00 am Service Date, if different from initiated Date: [] Patient: Peg Santoyo a 79 y/o F admitted on 05/22/19 for Abscess of the Right Ankle with Cellulitis. Chief Complaint: [] Interval history: Ms. Santoyo is a 79 year old F 79-year-old female presented to [place] ED on the 3rd for right foot swelling /pain and redness as well as fever. was also in A. fib RVR 150. She had a previous bimalleolar fracture of that right ankle in the past. She needed a debridement of that wound after she had had the original fracture repaired back in 2018. She has a chronic wound in that location. And has been followed by [facility] wound care [facility]. Case was discussed with Dr. Borja initially in the ER and patient was started IV antibiotics to follow-up with him early in the week. However it seems to be progressing a CT done today shows a large abscess with gas. She has been on a diltiazem drip which is been weaned down to 5 mg/h. ESR is 102 and CRP 33. White blood cell count 16 down from 20 the previous day. He is also being treated for UTI. Currently on vancomycin and Rocephin. Patient states it all started when she tripped a week ago. Since that time developed increasing redness swelling and tenderness. Reports fevers. 05/22 Slept well. No overnight events. The diltiazem drip 5 mg stopped last night but restarted about an hour ago for heart rates to the 110's. Transition to oral beta-kirby 05/23-patient doing well. No overnight events. No concerns per staff. JOESPH drain clotted blood. Dressing change ongoing. Continuing postoperative care per orthopedics. No fever chills. Intermittent nausea this morning. White count down from 3.6-9.2. 05/24-patient doing well. Intermittent dizzy with blood pressure around 106. Held antihypertensives today. Pradaxa on hold for another 24 hours in light of bloody drainage at surgery site. No overnight fever chills. Staph aureus on culture final sensitivity pending. On antibiotic coverage including Clinda/cefepime/vancomycin. - Constitutional Vitals: Vital Signs Temp Pulse Resp BP Pulse Ox 96.7 F L 118 H 20 106/69 90 05/25/19 08:00 05/25/19 04:14 05/25/19 08:01 05/25/19 08:01 05/25/19 09:31 Period Temp Pulse Resp BP Sys/Ennis Pulse Ox Last 24 Hr 96.4 F-98.6 F 95-118 10-22 90-123/53-79 80-100 Intake and Output 05/24/19 05/25/19 05/25/19 21:59 05:59 13:59 Intake Total 588 75 Output Total 2 0 825 Balance 586 75 -825 Weight 217 lb 1.6 oz Intake & Output: Intake & Output 05/24/19 05/25/19 05/25/19 21:59 05:59 13:59 Intake Total 588 75 Output Total 2 0 825 Balance 586 75 -825 Weight 217 lb 1.6 oz Intake: IV 108 Sodium Chloride 0.9% 250 ml @ 0 20 mls/hr IV .[id number] [facility] Rx#: [id number] Cleocin 600 mg In Dextrose 5% 108 in Water 50 ml @ 100 mls/hr IV Q8H [facility] Rx#:[id number] Oral 480 75 Output: Drainage 0 Right Lower Leg 0 Void Amount 0 825 # of times incontinent of urine 2 Other: Meal Dinner Percent of Meal Consumed 75% Feeding Ability Assist with Tray Set Up Urine Appearance Clear Urine Color Bright Yellow Urine Odor Normal # Bowel Movements 0 # Emeses 0 General appearance: no acute distress Exam: Alert oriented Nonlabored breathing Feels lightheaded Telemetry A. fib rate controlled Medical - PN: Obj Da - Labs CBC & Chem 7: 05/24/19 04:35 05/24/19 04:35 Labs: Abnormal Lab Results 05/24/19 05/24/19 05/23/19 04:35 04:35 08:50 WBC RBC 2.95 L Hgb 8.7 L Hct 27.6 L RDW 14.6 H Gran % 81.6 H Lymph % (Auto) 12.4 L Gran # Lymph # (Auto) 1.14 L [place] # (Auto) ESR Carbon Dioxide BUN 27 H Glucose 139 H GGT 538 H Alkaline Phosphatase 231 H C-Reactive Protein Albumin 3.1 L Globulin Albumin/Globulin Ratio 0.8 L Triglycerides 164 H Urine Protein 30 A Urine Occult Blood Trace A Urine RBC 7 H Urine WBC 11 H Ur Squamous Epith Cells 7 H Urine Mucus Many A 05/23/19 05/23/19 05:10 05:10 WBC 13.6 H RBC 3.24 L Hgb 9.6 L Hct 30.0 L RDW 14.8 H Gran % Lymph % (Auto) 13.6 L Gran # 10.31 H Lymph # (Auto) [place] # (Auto) 1.10 H ESR 118 H Carbon Dioxide 21 L BUN Glucose 112 H GGT 496 H Alkaline Phosphatase 212 H C-Reactive Protein 30.8 H Albumin 2.9 L Globulin 4.1 H Albumin/Globulin Ratio 0.7 L Triglycerides Urine Protein Urine Occult Blood Urine RBC Urine WBC Ur Squamous Epith Cells Urine Mucus Meds: Medications Acetaminophen (Tylenol) 650 mg PO Q6HP PRN PRN Reason: PAIN/FEVER > 101 Last Admin: 05/25/19 07:54 Dose: 650 mg Documented by: Albuterol/Ipratropium (Duoneb) 3 ml NEB Q4HP PRN PRN Reason: Shortness Of Breath Cefepime HCl (Maxipime) 2 gm IV Q12H [facility]; Protocol Last Admin: 05/25/19 09:52 Dose: 2 gm Documented by: Dextrose (Dextrose 50%) 0 ml IV UD PRN PRN Reason: Hypoglycemia Diagnostic Test (Pha) (Accu-Chek) 1 each FS ACHS [facility] Last Admin: 05/25/19 07:32 Dose: 1 each Documented by: Docusate Sodium (Colace) 100 mg PO BID [facility] Last Admin: 05/25/19 09:09 Dose: 100 mg Documented by: Furosemide (Lasix) 20 mg PO DAILY [facility] Last Admin: 05/25/19 10:37 Dose: Not Given Documented by: Gabapentin (Neurontin) 600 mg PO HS [facility] Last Admin: 05/24/19 19:07 Dose: 600 mg Documented by: Gabapentin (Neurontin) 400 mg PO TID@0800,1200,1600 [facility] Last Admin: 05/25/19 07:42 Dose: 400 mg Documented by: Glucose (Insta-Glucose) 15 gm PO PRN PRN PRN Reason: Hypoglycemia Heparin Sodium (Porcine) (Heparin) 5,000 unit SQ Q12 [facility] Last Admin: 05/25/19 09:10 Dose: 5,000 unit Documented by: Potassium Chloride 40 meq/ (Dextrose) 520 mls @ 130 mls/hr IV UD PRN PRN Reason: Potassium < 3 Magnesium Sulfate (Magnesium Sulfate) 2 gm in 50 mls @ 50 mls/hr IV UD PRN PRN Reason: Magnesium </= 1.6 Clindamycin Phosphate 600 mg/ (Dextrose) 54 mls @ 100 mls/hr IV Q8H [facility]; Protocol Last Admin: 05/25/19 04:17 Dose: 100 mls/hr Documented by: Sodium Chloride (Sodium Chloride 0.9%) 250 mls @ 20 mls/hr IV .[id number] [facility] Last Admin: 05/25/19 04:14 Dose: Not Given Documented by: Diltiazem HCl 125 mg/ Dextrose 125 mls @ 5 mls/hr IV Q12HP [facility]; Protocol PRN Reason: Tachyarrhythmias Vancomycin HCl 1,000 mg/ (Sodium Chloride) 250 mls @ 250 mls/hr IV Q24H [facility] Last Admin: 05/25/19 09:56 Dose: 250 mls/hr Documented by: Insulin Human Lispro (Humalog) 0 unit SQ ACHS [facility]; Protocol Last Admin: 05/25/19 07:39 Dose: Not Given Documented by: Lactobacillus Rhamnosus (Culturelle) 1 cap PO BID [facility] Last Admin: 05/25/19 09:10 Dose: 1 cap Documented by: Levothyroxine Sodium (Synthroid) 50 mcg PO ACB [facility] Last Admin: 05/25/19 07:23 Dose: 50 mcg Documented by: Melatonin (Melatonin 3mg Tablet) 3 mg PO HS [facility] Last Admin: 05/24/19 19:07 Dose: 3 mg Documented by: Metoclopramide HCl (Reglan) 5 mg IV AC [facility] Last Admin: 05/25/19 07:24 Dose: 5 mg Documented by: Metoprolol Succinate (Toprol Xl) 25 mg PO DAILY [facility] Last Admin: 05/25/19 10:07 Dose: Not Given Documented by: Metoprolol Succinate (Toprol Xl) 100 mg PO DAILY [facility] Last Admin: 05/25/19 10:07 Dose: Not Given Documented by: Metoprolol Tartrate (Lopressor) 5 mg IV Q2HP PRN PRN Reason: Tachyarrhythmias HR>110 Last Admin: 05/24/19 01:50 Dose: 5 mg Documented by: Nortriptyline HCl (Pamelor) 150 mg PO HS [facility] Last Admin: 05/24/19 19:07 Dose: 150 mg Documented by: Ondansetron HCl (Zofran) 4 mg IV Q4HP PRN PRN Reason: Nausea And Vomiting Last Admin: 05/24/19 12:49 Dose: 4 mg Documented by: Oxycodone/Acetaminophen (Percocet 5-325 Mg) 1 tab PO Q4HP PRN PRN Reason: PAIN LEVEL 3-6 Last Admin: 05/24/19 12:49 Dose: 1 tab Documented by: Polyethylene Glycol (Miralax) 17 gm PO DAILYP PRN PRN Reason: Constipation Potassium Chloride (Kdur) 40 meq PO UD PRN PRN Reason: Potssium is 3-3.5 Potassium Chloride (Kdur) 40 meq PO UD PRN PRN Reason: Potassium < 3 Scopolamine (Transderm-Scop) 1 patch TOPICAL PREOP PRN PRN Reason: Nausea And Vomiting Senna (Senokot) 2 tab PO DAILYP PRN PRN Reason: Constipation Last Admin: 05/24/19 19:07 Dose: 2 tab Documented by: Sodium Chloride (Saline Flush) 10 ml IV Q8 [facility] Last Admin: 05/25/19 04:18 Dose: Not Given Documented by: Spironolactone (Aldactone) 12.5 mg PO DAILY [facility] Last Admin: 05/25/19 10:06 Dose: Not Given Documented by: Throat Lozenges (Cepacol) 1 lozenge PO PRN PRN PRN Reason: Sore Throat Vancomycin HCl (Vancomycin Per Pharmacy) 1 order IV UD [facility]; Protocol Medical - PN: A/P - Time Spent With Patient Total time spent is greater than 50% in coordination of care (as documented) at patient's floor/unit and/or counseling patient: Greater than 35 minutes - Narrative A/P Narrative: * Right ankle cellulitis/abscess with gas, hardware present from previous fract ure: CT with abscess medially. past-status post I&D. Cultures staph aureus final sensitivities pending * Chronic RLE wound: Wound care on board * Brief hypotension-antihypertensives on hold * A. fib RVR off diltiazem drip. Currently on beta-kirby. * SIRS: Resolved * UTI: On antibiotic coverage * DM w/neuropathy: Apparently diet controlled * h/o systolic(45%)/diastolic CHF: * CKD III: * Hypothyroidism-on home dose thyroxine * Dementia: At baseline * Anxiety/depression: * Obesity: Continue directed therapies Plan * Continue antibiotic coverage and de-escalate based on sensitivities * Continue wound care per Dr. pate * Restart aspirin * SSI * pt/ot Medical - PN: Qual - VTE Deep Vein Thrombosis/Pulmonary Embolism Present on Admission: No
[2019-05-25 11:43] LABS: Hematocrit 27.2 % (34.1-44.9); Hemoglobin 8.4 g/dL (11.2-15.7); Mean Cell Volume 95.1 fL (80.0-100.0); Mean Corpuscular HGB Conc 30.9 g/dL (31.0-36.0); Mean Platelet Volume 9.3 fL (7.4-10.4); Platelet Count 348 K/mcL (140-440); RBC 2.86 M/mcL (3.59-5.38); Red Cell Distribution Width 14.9 % (11.5-14.5); WBC 8.8 K/mcL (4.50-11.00)
[2019-05-25 12:03] LABS: ALT/SGPT 35 U/l (0-40); AST/SGOT 22 U/l (0-37); Albumin 3.2 gm/dL (3.2-5.2); Alkaline Phosphatase 208 U/L (39-117); Bilirubin,Direct < 0.2 mg/dL (0.0-0.3); Bilirubin,Total 0.2 mg/dL (0.0-1.0); Blood Urea Nitrogen 25 mg/dl (8-23); Carbon Dioxide 25 mmol/L (22-30); Chloride 104 mmol/L (96-108); Globulin 3.3 gm/dL (2.2-3.7); Glomerular Filtration Rate 53; Glucose 122 mg/dL (70-105); Lactate Dehydrogenase 155 U/L (94-250); Phosphorous 2.7 mg/dL (2.7-4.5); Triglycerides 224 mg/dl (<150); Uric Acid 6.9 mg/dL (2.5-8.0)
[2019-05-25 12:09] LABS: Anisocytosis 1+ (NONE SEEN); Band Neutrophils % 1 % (0-10); Eosinophils % (Manual) 2 % (0-7); Hypochromasia 1+ (NONE SEEN); Lymphocytes % 28 % (15-49); Monocytes % (Manual) 7 % (1-12); Platelet Estimate NORMAL (NORMAL); RBC Morphology ABNORM (NORMAL); Segmented Neutrophils % 62 % (38-78)
[2019-05-25] MEDS: oxyCODONE/APAP 5/325MG TABLET PO PRN ×2 (13:20→19:09)
[2019-05-25] MEDS: METOPROLOL TARTRATE 5 MG/5 ML VIAL IV PRN ×2 (15:49→18:29)
[2019-05-25] MEDS: GABAPENTIN 300 MG CAPSULE PO SCH (20:53)
[2019-05-25] MEDS: MELATONIN 3 MG TABLET PO SCH (20:53)
[2019-05-25] MEDS: NORTRIPTYLINE 25 MG CAPSULE PO SCH (20:53)
[2019-05-25] MEDS ORDERED: DIGOXIN 125 MCG TABLET PO ONE (22:05)
[2019-05-25] MEDS ORDERED: DIGOXIN 125 MCG TABLET ONE (22:55)
[2019-05-26] MEDS: oxyCODONE/APAP 5/325MG TABLET PO PRN (00:35)
[2019-05-26] MEDS: CLINDAMYCIN 600 MG in DEXTROSE 5% IN WATER 50 ML IV SCH (04:13)
[2019-05-26] MEDS: 0.9 % SODIUM CHLORIDE 250 ML IV SCH ×2 (04:14→17:22)
[2019-05-26] MEDS: 0.9 % SODIUM CHLORIDE 10 ML SYRINGE IV SCH ×3 (05:48→22:23)
[2019-05-26 05:57] LABS: Hematocrit 25.9 % (34.1-44.9); Mean Cell Volume 95.6 fL (80.0-100.0); Mean Corpuscular HGB Conc 30.9 g/dL (31.0-36.0); Mean Platelet Volume 9.2 fL (7.4-10.4); Platelet Count 382 K/mcL (140-440); RBC 2.71 M/mcL (3.59-5.38); Red Cell Distribution Width 15.5 % (11.5-14.5); WBC 10.6 K/mcL (4.50-11.00)
[2019-05-26 06:46] LABS: ALT/SGPT 30 U/l (0-40); AST/SGOT 17 U/l (0-37); Albumin 2.8 gm/dL (3.2-5.2); Albumin/Globulin Ratio 0.8 (1.0-2.3); Alkaline Phosphatase 207 U/L (39-117); Bilirubin,Direct < 0.2 mg/dL (0.0-0.3); Bilirubin,Total 0.2 mg/dL (0.0-1.0); Carbon Dioxide 23 mmol/L (22-30); Chloride 104 mmol/L (96-108); Globulin 3.5 gm/dL (2.2-3.7); Glomerular Filtration Rate 47; Glucose 117 mg/dL (70-105); Lactate Dehydrogenase 176 U/L (94-250); Phosphorous 3.4 mg/dL (2.7-4.5); Triglycerides 223 mg/dl (<150); Uric Acid 7.1 mg/dL (2.5-8.0)
[2019-05-26 06:47] LABS: Blood Urea Nitrogen 32 mg/dl (8-23)
[2019-05-26 07:19] LABS: Anisocytosis FEW (NONE SEEN); Basophils % (Manual) 1 % (0-2); Eosinophils % (Manual) 8 % (0-7); Lymphocytes % 28 % (15-49); Monocytes % (Manual) 10 % (1-12); Platelet Estimate NORMAL (NORMAL); RBC Morphology ABNORMAL (NORMAL); Segmented Neutrophils % 53 % (38-78)
[2019-05-26] MEDS: LEVOTHYROXINE 50 MCG TABLET PO SCH (07:43)
[2019-05-26] MEDS: METOCLOPRAMIDE 10 MG/2 ML VIAL IV SCH ×3 (07:43→17:20)
[2019-05-26] MEDS: INSULIN LISPRO 1 UNIT/0.01 ML UNIT SQ SCH ×4 (07:43→20:18)
[2019-05-26] MEDS: GABAPENTIN 400 MG CAPSULE PO SCH ×3 (07:43→16:16)
[2019-05-26] MEDS ORDERED: DIGOXIN 500 MCG/2 ML AMPUL IV ONE (08:04)
--- NOTE | 2019-05-26 09:19 | Internal Med Progress Note ---
Medical - PN: Subj Patient information: Note initiated : 05/26/19 at 9:17 am Service Date, if different from initiated Date: [] Patient: Peg Santoyo a 79 y/o F admitted on 05/22/19 for Abscess of the Right Ankle with Cellulitis. Chief Complaint: [] Interval history: Ms. Santoyo is a 79 year old F 79-year-old female presented to [place] ED on the for right foot swelling /pain and redness as well as fever. was also in A. fib RVR 150. She had a previous bimalleolar fracture of that right ankle in the past. She needed a debridement of that wound after she had had the original fracture repaired back in 2018. She has a chronic wound in that location. And has been followed by [facility] wound care clinic. Case was discussed with Dr. Borja initially in the ER and patient was started IV antibiotics to follow-up with him early in the week. However it seems to be progressing a CT done today shows a large abscess with gas. She has been on a diltiazem drip which is been weaned down to 5 mg/h. ESR is 102 and CRP 33. White blood cell count 16 down from 20 the previous day. He is also being treated for UTI. Currently on vancomycin and Rocephin. Patient states it all started when she tripped a week ago. Since that time developed increasing redness swelling and tenderness. Reports fevers. 05/22 Slept well. No overnight events. The diltiazem drip 5 mg stopped last night but restarted about an hour ago for heart rates to the 110's. Transition to oral beta-kirby 05/23-patient doing well. No overnight events. No concerns per staff. JOESPH drain clotted blood. Dressing change ongoing. Continuing postoperative care per orthopedics. No fever chills. Intermittent nausea this morning. White count down from 3.6-9.2. 05/24-patient doing well. Intermittent dizzy with blood pressure around 106. Held antihypertensives today. Pradaxa on hold for another 24 hours in light of bloody drainage at surgery site. No overnight fever chills. Staph aureus on culture final sensitivity pending. On antibiotic coverage including Clinda/cefepime/vancomycin. 05/25-patient doing well. ongoing postoperative rehab. Intermittent A. fib requiring digoxin. Antihypertensives on hold. Systolic stable. Renal function stable. ID consulted. - Constitutional Vitals: Vital Signs Temp Pulse Resp BP Pulse Ox 98.2 F 114 H 24 H 109/57 95 05/26/19 04:01 05/25/19 17:55 05/26/19 08:15 05/26/19 08:00 05/26/19 08:15 Period Temp Pulse Resp BP Sys/Ennis Pulse Ox Last 24 Hr 96.6 F-98.2 F 111-114 10-30 82-119/54-78 90-100 Intake and Output 05/25/19 05/26/19 05/26/19 21:59 05:59 13:59 Intake Total 434 664 Output Total 350 200 Balance 84 464 Weight 216 lb 12.8 oz Intake & Output: Intake & Output 05/25/19 05/26/19 05/26/19 21:59 05:59 13:59 Intake Total 434 664 Output Total 350 200 Balance 84 464 Weight 216 lb 12.8 oz Intake: IV 54 304 Sodium Chloride 0.9% 250 ml @ 250 20 mls/hr IV .[id number] [facility] Rx#: [id number] Cleocin 600 mg In Dextrose 5% 54 54 in Water 50 ml @ 100 mls/hr IV Q8H [facility] Rx#:[id number] Oral 380 360 Output: Drainage 0 Right Lower Leg 0 Urine Catheter Amount 350 Void Amount 200 Other: Meal Dinner Percent of Meal Consumed 100% Feeding Ability Assist with Tray Set Up Urine Appearance Clear Clear Urine Color Dark Yellow Bright Yellow Urine Odor Normal General appearance: morbidly obese Exam: Alert oriented nonlabored breathing Postoperative dressing JOESPH drain Jernigan draining clear urine Medical - PN: Obj Da - Labs CBC & Chem 7: 05/26/19 04:33 05/26/19 04:33 Labs: Abnormal Lab Results 05/26/19 05/26/19 05/25/19 04:33 04:33 11:12 RBC 2.71 L Hgb 8.0 L Hct 25.9 L MCHC 30.9 L RDW 15.5 H Gran % Lymph % (Auto) Lymph # (Auto) Eosinophils % (Manual) 8 H RBC Morphology Hypochromasia Anisocytosis Few A BUN 32 H 25 H Glucose 117 H 122 H GGT 493 H 508 H Alkaline Phosphatase 207 H 208 H Albumin 2.8 L Albumin/Globulin Ratio 0.8 L Triglycerides 223 H 224 H Urine Protein Urine Occult Blood Urine RBC Urine WBC Ur Squamous Epith Cells Urine Mucus 05/25/19 05/24/19 05/24/19 11:12 04:35 04:35 RBC 2.86 L 2.95 L Hgb 8.4 L 8.7 L Hct 27.2 L 27.6 L MCHC 30.9 L RDW 14.9 H 14.6 H Gran % 81.6 H Lymph % (Auto) 12.4 L Lymph # (Auto) 1.14 L Eosinophils % (Manual) RBC Morphology Abnorm A Hypochromasia 1+ A Anisocytosis 1+ A BUN 27 H Glucose 139 H GGT 538 H Alkaline Phosphatase 231 H Albumin 3.1 L Albumin/Globulin Ratio 0.8 L Triglycerides 164 H Urine Protein Urine Occult Blood Urine RBC Urine WBC Ur Squamous Epith Cells Urine Mucus 05/23/19 08:50 RBC Hgb Hct MCHC RDW Gran % Lymph % (Auto) Lymph # (Auto) Eosinophils % (Manual) RBC Morphology Hypochromasia Anisocytosis BUN Glucose GGT Alkaline Phosphatase Albumin Albumin/Globulin Ratio Triglycerides Urine Protein 30 A Urine Occult Blood Trace A Urine RBC 7 H Urine WBC 11 H Ur Squamous Epith Cells 7 H Urine Mucus Many A Meds: Medications Acetaminophen (Tylenol) 650 mg PO Q6HP PRN PRN Reason: PAIN/FEVER > 101 Last Admin: 05/25/19 07:54 Dose: 650 mg Documented by: Albuterol/Ipratropium (Duoneb) 3 ml NEB Q4HP PRN PRN Reason: Shortness Of Breath Aspirin (Aspirin) 81 mg PO DAILY [facility] Cefepime HCl (Maxipime) 2 gm IV Q12H [facility]; Protocol Last Admin: 05/25/19 21:02 Dose: 2 gm Documented by: Dextrose (Dextrose 50%) 0 ml IV UD PRN PRN Reason: Hypoglycemia Diagnostic Test (Pha) (Accu-Chek) 1 each FS ACHS [facility] Last Admin: 05/26/19 07:43 Dose: 1 each Documented by: Docusate Sodium (Colace) 100 mg PO BID [facility] Last Admin: 05/25/19 20:53 Dose: 100 mg Documented by: Folic Acid (Folic Acid) 1 mg PO DAILY [facility] Furosemide (Lasix) 20 mg PO DAILY [facility] Last Admin: 05/25/19 10:37 Dose: Not Given Documented by: Gabapentin (Neurontin) 600 mg PO HS [facility] Last Admin: 05/25/19 20:53 Dose: 600 mg Documented by: Gabapentin (Neurontin) 400 mg PO TID@0800,1200,1600 [facility] Last Admin: 05/26/19 07:43 Dose: 400 mg Documented by: Glucose (Insta-Glucose) 15 gm PO PRN PRN PRN Reason: Hypoglycemia Heparin Sodium (Porcine) (Heparin) 5,000 unit SQ Q12 [facility] Last Admin: 05/25/19 20:53 Dose: 5,000 unit Documented by: Potassium Chloride 40 meq/ (Dextrose) 520 mls @ 130 mls/hr IV UD PRN PRN Reason: Potassium < 3 Magnesium Sulfate (Magnesium Sulfate) 2 gm in 50 mls @ 50 mls/hr IV UD PRN PRN Reason: Magnesium </= 1.6 Clindamycin Phosphate 600 mg/ (Dextrose) 54 mls @ 100 mls/hr IV Q8H [facility]; Protocol Last Infusion: 05/26/19 05:48 Dose: Infused Documented by: Sodium Chloride (Sodium Chloride 0.9%) 250 mls @ 20 mls/hr IV .[id number] [facility] Last Admin: 05/26/19 04:14 Dose: Not Given Documented by: Diltiazem HCl 125 mg/ Dextrose 125 mls @ 5 mls/hr IV Q12HP PRN; Protocol PRN Reason: Tachyarrhythmias Vancomycin HCl 1,000 mg/ (Sodium Chloride) 250 mls @ 250 mls/hr IV Q24H [facility] Last Infusion: 05/25/19 11:15 Dose: Infused Documented by: Insulin Human Lispro (Humalog) 0 unit SQ ACHS [facility]; Protocol Last Admin: 05/26/19 07:43 Dose: Not Given Documented by: Lactobacillus Rhamnosus (Culturelle) 1 cap PO BID [facility] Last Admin: 05/25/19 20:53 Dose: 1 cap Documented by: Levothyroxine Sodium (Synthroid) 50 mcg PO ACB [facility] Last Admin: 05/26/19 07:43 Dose: 50 mcg Documented by: Melatonin (Melatonin 3mg Tablet) 3 mg PO HS [facility] Last Admin: 05/25/19 20:53 Dose: 3 mg Documented by: Metoclopramide HCl (Reglan) 5 mg IV AC [facility] Last Admin: 05/26/19 07:43 Dose: 5 mg Documented by: Metoprolol Succinate (Toprol Xl) 25 mg PO DAILY [facility] Last Admin: 05/25/19 10:07 Dose: Not Given Documented by: Metoprolol Succinate (Toprol Xl) 100 mg PO DAILY [facility] Last Admin: 05/25/19 10:07 Dose: Not Given Documented by: Metoprolol Tartrate (Lopressor) 5 mg IV Q2HP PRN PRN Reason: Tachyarrhythmias HR>110 Last Admin: 05/25/19 18:29 Dose: 5 mg Documented by: Nortriptyline HCl (Pamelor) 150 mg PO [facility] Last Admin: 05/25/19 20:53 Dose: 150 mg Documented by: Ondansetron HCl (Zofran) 4 mg IV Q4HP PRN PRN Reason: Nausea And Vomiting Last Admin: 05/24/19 12:49 Dose: 4 mg Documented by: Oxycodone/Acetaminophen (Percocet 5-325 Mg) 1 tab PO Q4HP PRN PRN Reason: PAIN LEVEL 3-6 Last Admin: 05/26/19 00:35 Dose: 1 tab Documented by: Polyethylene Glycol (Miralax) 17 gm PO DAILYP PRN PRN Reason: Constipation Potassium Chloride (Kdur) 40 meq PO UD PRN PRN Reason: Potssium is 3-3.5 Potassium Chloride (Kdur) 40 meq PO UD PRN PRN Reason: Potassium < 3 Scopolamine (Transderm-Scop) 1 patch TOPICAL PREOP PRN PRN Reason: Nausea And Vomiting Senna (Senokot) 2 tab PO DAILYP PRN PRN Reason: Constipation Last Admin: 05/24/19 19:07 Dose: 2 tab Documented by: Sodium Chloride (Saline Flush) 10 ml IV Q8 [facility] Last Admin: 05/26/19 05:48 Dose: 10 ml Documented by: Spironolactone (Aldactone) 12.5 mg PO DAILY [facility] Last Admin: 05/25/19 10:06 Dose: Not Given Documented by: Throat Lozenges (Cepacol) 1 lozenge PO PRN PRN PRN Reason: Sore Throat Vancomycin HCl (Vancomycin Per Pharmacy) 1 order IV UD [facility]; Protocol Medical - PN: A/P - Time Spent With Patient Total time spent is greater than 50% in coordination of care (as documented) at patient's floor/unit and/or counseling patient: 25 - 35 minutes - Narrative A/P Narrative: * Right ankle cellulitis/abscess with gas, hardware present from previous fracture: CT with abscess medially. past-status post I&D. MSSA * Chronic RLE wound: Wound care on board * Brief hypotension-antihypertensives on hold. DC diuretics * A. fib RVR off diltiazem drip. Status post digoxin load. Rate controlled. * SIRS: Resolved * UTI: On antibiotic coverage * DM w/neuropathy: Apparently diet controlled * h/o systolic(45%)/diastolic CHF: * CKD III: * Hypothyroidism-on home dose thyroxine * Dementia: At baseline * Anxiety/depression: * Obesity: Continue directed therapies Plan * ID consult for antibiotics * Continue antibiotic coverage and de-escalate based on sensitivities * Continue wound care per Dr. Guaman * Restart aspirin * Continue holding anti-hypertensives, discontinue diuretic * SSI * pt/ot Medical - PN: Qual - VTE Deep Vein Thrombosis/Pulmonary Embolism Present on Admission: No
[2019-05-26] MEDS: DOCUSATE SODIUM 100 MG CAPSULE PO SCH ×2 (09:22→20:13)
[2019-05-26] MEDS: ASPIRIN 81 MG TAB.CHEW PO SCH (09:22)
[2019-05-26] MEDS: METOPROLOL SUCCINATE 25 MG TAB.XL.24H PO SCH (09:22)
[2019-05-26] MEDS: LACTOBACILLUS 1 CAPSULE PO SCH ×2 (09:22→20:13)
[2019-05-26] MEDS: HEPARIN 5,000 UNIT/ML VIAL SQ SCH ×2 (09:22→20:18)
[2019-05-26] MEDS: SPIRONOLACTONE 25 MG TABLET PO SCH (09:22)
[2019-05-26] MEDS: FOLIC ACID 1 MG TABLET PO SCH (09:22)
[2019-05-26] MEDS: METOPROLOL SUCCINATE 50 MG TAB.XL.24H PO SCH (09:23)
[2019-05-26] MEDS: VANCOMYCIN 1,000 MG in 0.9 % SODIUM CHLORIDE 250 ML IV SCH (09:32)
[2019-05-26] MEDS: CEFEPIME 2 GM VIAL IV SCH (09:32)
[2019-05-26] MEDS: FUROSEMIDE 20 MG TABLET PO SCH (09:33)
[2019-05-26] MEDS ORDERED: ceFAZolin 2 GM in DEXTROSE 5% IN WATER 50 ML IV SCH (10:00)
--- NOTE | 2019-05-26 10:27 | General Surgery Progress Note ---
Subjective Narrative: Note initiated : 05/26/19 at 10:25 am Service Date, if different from initiated Date: [] Patient: Peg Santoyo 79 y/o F admitted on 05/22/19 for Abscess of the Right Ankle with Cellulitis. Chief Complaint: [] Patient seen on rounds with Lisa STOUT Inpatient wound care nurse. Patient sitting OOB in chair eating breakfast. Objective Temp Pulse Resp BP Pulse Ox 98.2 F 114 H 24 H 109/57 95 05/26/19 04:01 05/25/19 17:55 05/26/19 08:15 05/26/19 08:00 05/26/19 08:15 AVSS. No Changes ROSA. Right dressing CDI. Drains functioning. Minimal serous drainage. Reviewed PT / OT notes, - Additional Data Intake & Output - Last 24 hours: Intake & Output 05/24/19 05/25/19 05/26/19 05/27/19 05:59 05:59 05:59 05:59 Intake Total 2178 1247 1852 Output Total 886 292 6300 Balance 1297 929 477 Weight 215 lb 11.2 oz 217 lb 1.6 oz 216 lb 12.8 oz - Labs 05/26/19 04:33 05/26/19 04:33 Diabetes panel 05/25/19 05/26/19 Range/Units 11:12 04:33 Sodium 139 138 (133-145) mmol/L Potassium 3.9 4.3 (3.3-5.1) mmol/L Chloride 104 104 (96-108) mmol/L Carbon Dioxide 25 23 (22-30) mmol/L BUN 25 H 32 H (8-23) mg/dl Creatinine 1.0 1.1 (0.6-1.1) mg/dl Glucose 122 H 117 H (70-105) mg/dL Calcium 9.0 9.0 (8.6-10.4) mg/dl AST 22 17 (0-37) U/l ALT 35 30 (0-40) U/l Alkaline Phosphatase 208 H 207 H (39-117) U/L Total Protein 6.5 6.3 (5.9-8.4) gm/dL Albumin 3.2 2.8 L (3.2-5.2) gm/dL Triglycerides 224 H 223 H (<150) mg/dl Calcium panel 05/25/19 05/26/19 Range/Units 11:12 04:33 Calcium 9.0 9.0 (8.6-10.4) mg/dl Phosphorus 2.7 3.4 (2.7-4.5) mg/dL Albumin 3.2 2.8 L (3.2-5.2) gm/dL Pituitary panel 05/25/19 05/26/19 Range/Units 11:12 04:33 Sodium 139 138 (133-145) mmol/L Potassium 3.9 4.3 (3.3-5.1) mmol/L Chloride 104 104 (96-108) mmol/L Carbon Dioxide 25 23 (22-30) mmol/L BUN 25 H 32 H (8-23) mg/dl Creatinine 1.0 1.1 (0.6-1.1) mg/dl Glucose 122 H 117 H (70-105) mg/dL Calcium 9.0 9.0 (8.6-10.4) mg/dl Adrenal panel 05/25/19 05/26/19 Range/Units 11:12 04:33 Sodium 139 138 (133-145) mmol/L Potassium 3.9 4.3 (3.3-5.1) mmol/L Chloride 104 104 (96-108) mmol/L Carbon Dioxide 25 23 (22-30) mmol/L BUN 25 H 32 H (8-23) mg/dl Creatinine 1.0 1.1 (0.6-1.1) mg/dl Glucose 122 H 117 H (70-105) mg/dL Calcium 9.0 9.0 (8.6-10.4) mg/dl Total Bilirubin 0.2 0.2 (0.0-1.0) mg/dL AST 22 17 (0-37) U/l ALT 35 30 (0-40) U/l Alkaline Phosphatase 208 H 207 H (39-117) U/L Total Protein 6.5 6.3 (5.9-8.4) gm/dL Albumin 3.2 2.8 L (3.2-5.2) gm/dL Assessment and Plan (1) Encounter for postoperative wound care Problem details: Assessment: Satisfactory post surgical progress. Plan: Following patient in hospital and will continue to follow in wound clinic after after discharge. Status: Acute Current Visit: Yes (2) Wound, open, lower limb with complication Status: Acute Current Visit: No - Narrative A/P Narrative: Assessment: Satisfactory progress from wound care point of view. Awaits discharge planning. Plan: Continue present treatment. If she is still here by tomorrow, ??? consider d/c drains. - Time Spent With Patient Total time spent is greater than 50% in coordination of care (as documented) at patient's floor/unit and/or counseling patient: less than 15 minutes
[2019-05-26] MEDS: ceFAZolin 1 GM VIAL IV SCH ×3 (11:14→22:23)
[2019-05-26] MEDS: ONDANSETRON 4 MG/2 ML VIAL IV PRN (12:04)
--- NOTE | 2019-05-26 16:17 | Infectious Disease Consult ---
History of Present Illness Patient information: Note initiated : 05/26/19 at 3:51 pm Service Date, if different from initiated Date: [] Patient: Peg Santoyo 79 y/o F admitted on 05/22/19 for Abscess of the Right Ankle with Cellulitis. Chief Complaint: [] Consult date: 05/26/19 Requesting Physician: Gonzalez Alanis Reason for Consult: Rt ankle infection Chief complaint: my right ankle hurts, and is swollen History of present illness: 79-year-old lady with PMHx of: - bimalleolar fracture about 2 years, s/p ORIF with screws and plate, complicated by development of chronic wound due to recurrent falls and poor w ound healing (in f/u with [facility] wound care) - Afib She was referred from [place] ED after presenting there with c/o fever, right foot swelling, pain and redness on 05/20/19. She was also in A. fib with VR of 150. Patient was initially managed with IV antibiotics in [place] but because of CT ankle showing a large abscess with gas, she was transferred to [facility] for surgical debridement. At admission, VS: temp 36.8C, HR 106, BP 129/69. WBC was 13.6, ESR 118, CRP 30.8, Cr 1.1. Pt was taken to OR on 05/22 and underwent Right abscess I & D with hardware removal [2 screws]. She had been on IV Vanc, IV Clinda and IV Ceftriaxone. OP Cx sent grew MSSA. Review of Systems All systems PM: reviewed and no additional remarkable complaints except as stated Constitutional: as per HPI Medications and Allergies Home Medications Medication Instructions Recorded Confirmed Type Acetaminophen [Shake That Ache] 500 mg PO Q4HP PRN 11/10/17 05/22/19 History Aspirin [Aspirin EC] 81 mg PO DAILY 11/10/17 05/22/19 History Benzonatate [Tessalon] 100 mg PO Q6HP PRN 11/10/17 05/22/19 History Cholecalciferol (Vitamin D3) 2,000 unit PO QAM 11/10/17 05/22/19 History [Vitamin D3] Cyanocobalamin (Vitamin B-12) 1,000 mcg SL DAILY 11/10/17 05/22/19 History [Vitamin B-12] Dabigatran Etexilate Mesylate 150 mg PO BID 11/10/17 05/22/19 History [Pradaxa] Docusate Sodium [Colace] 100 mg PO QAM 11/10/17 05/22/19 History Ferrous Sulfate [Iron] 325 mg PO DAILY 11/10/17 05/22/19 History Folic Acid 1 mg PO DAILY 11/10/17 05/22/19 History Gabapentin [Neurontin] 2 capsule PO HS 11/10/17 05/22/19 History Inulin [Child's Fiber Select 1.5 gm PO QDAY 11/10/17 05/22/19 History Gummies] Loperamide [Imodium] 2 mg PO PRN PRN 11/10/17 05/22/19 History Magnesium Hydroxide [Milk of 30 ml PO DAILYP PRN 11/10/17 05/22/19 History Magnesia] Melatonin [Melatin] 3 mg PO HS 11/10/17 05/22/19 History Metoclopramide HCl [Metoclopramide 5 mg PO ACHS 11/10/17 05/22/19 History HCl Odt] Metoprolol Succinate [Toprol Xl] 25 mg PO DAILY 11/10/17 05/22/19 History Metoprolol Succinate [Toprol Xl] 100 mg PO QDAY 11/10/17 05/22/19 History Nortriptyline HCl [Pamelor] 150 mg PO HS 11/10/17 05/22/19 History Polyethylene Glycol 3350 [Miralax] 17 gm PO Q48 11/10/17 05/22/19 History Spironolactone [Aldactone] 0.5 tab PO DAILY 11/10/17 05/22/19 History Vitamin E (Dl,Tocopheryl Acet) 200 unit PO DAILY 11/10/17 05/22/19 History [Vitamin E] Eucalyptus/Menthol [Cough Drops] 1 dose PO PRN PRN 05/22/19 05/22/19 History Fluconazole [Diflucan] 150 mg PO DAILY PRN 05/22/19 05/22/19 History Furosemide [Lasix] 1 tab PO DAILY 05/22/19 05/22/19 History Gabapentin [Neurontin] 1 capsule PO TID 05/22/19 05/22/19 History Lactobacillus [Culturelle] 1 cap PO DAILY 05/22/19 05/22/19 History Levothyroxine [Synthroid] 50 mcg PO DAILY 05/22/19 05/22/19 History Nystatin 1 dose TOPICAL BID 05/22/19 05/22/19 History Potassium Chloride [Klor-Con 10] 1 tab PO DAILY 05/22/19 05/22/19 History guaiFENesin [Robitussin] 15 ml PO Q6HP PRN 05/22/19 05/22/19 History ceFAZolin [Ancef] 2 gm IV Q8H 38 Days vial 05/30/19 Rx oxyCODONE/APAP [Percocet 5-325 mg] 1 tab PO Q4H PRN #14 tab 05/30/19 Rx Allergies Allergy/AdvReac Type Severity Reaction Status Date / Time morphine Allergy Mild Itchy Nose Verified 03/12/18 10:39 acyclovir Allergy Unknown Unknown Verified 03/12/18 10:39 atenolol [From Tenormin] Allergy Unknown Unknown Verified 03/12/18 10:39 ciprofloxacin [From Cipro] Allergy Unknown Unknown Verified 03/12/18 10:39 meclizine Allergy Unknown Unknown Verified 03/12/18 10:39 nitrofurantoin Allergy Unknown Unknown Verified 03/12/18 10:39 [From Macrobid] promethazine Allergy Unknown Unknown Verified 03/12/18 10:39 rosuvastatin [From Crestor] Allergy Unknown Unknown Verified 03/12/18 10:39 sulfamethoxazole Allergy Unknown Unknown Verified 03/12/18 10:39 [From Bactrim] trimethoprim [From Bactrim] Allergy Unknown Unknown Verified 03/12/18 10:39 Physical Examination Vital signs: Temp Pulse Resp BP Pulse Ox 36.9 C 91 H 15 111/64 97 05/26/19 12:00 05/26/19 12:00 05/26/19 14:08 05/26/19 14:02 05/26/19 12:00 General appearance: no acute distress Eyes pulmonary: nonicteric ENT: oropharynx moist Extremities: edema, other (RT ankle swelling on both lateral and medial aspects. [place] on medial aspect with some serous drainage, and has a JOESPH drain. Overall the lower leg, ankle and foot are swollen and slightly red, tender to touch. Pt can wiggle toes without difficulty. No discoloration of toes. DP barely palpable.) Results - Laboratory Findings CBC and BMP: 05/29/19 04:20 05/29/19 04:20 Abnormal lab findings: Abnormal Labs 05/23/19 05/23/19 05/23/19 05:10 05:10 08:50 WBC 13.6 H RBC 3.24 L Hgb 9.6 L Hct 30.0 L MCHC RDW 14.8 H Gran % Lymph % (Auto) 13.6 L Gran # 10.31 H Lymph # (Auto) Starke # (Auto) 1.10 H Eosinophils % (Manual) RBC Morphology Hypochromasia Anisocytosis ESR 118 H Carbon Dioxide 21 L BUN Glucose 112 H GGT 496 H Alkaline Phosphatase 212 H C-Reactive Protein 30.8 H Albumin 2.9 L Globulin 4.1 H Albumin/Globulin Ratio 0.7 L Triglycerides Urine Protein 30 A Urine Occult Blood Trace A Urine RBC 7 H Urine WBC 11 H Ur Squamous Epith Cells 7 H Urine Mucus Many A 05/24/19 05/24/19 05/25/19 04:35 04:35 11:12 WBC RBC 2.95 L 2.86 L Hgb 8.7 L 8.4 L Hct 27.6 L 27.2 L MCHC 30.9 L RDW 14.6 H 14.9 H Gran % 81.6 H Lymph % (Auto) 12.4 L Gran # Lymph # (Auto) 1.14 L Starke # (Auto) Eosinophils % (Manual) RBC Morphology Abnorm A Hypochromasia 1+ A Anisocytosis 1+ A ESR Carbon Dioxide BUN 27 H Glucose 139 H GGT 538 H Alkaline Phosphatase 231 H C-Reactive Protein Albumin 3.1 L Globulin Albumin/Globulin Ratio 0.8 L Triglycerides 164 H Urine Protein Urine Occult Blood Urine RBC Urine WBC Ur Squamous Epith Cells Urine Mucus 05/25/19 05/26/19 05/26/19 11:12 04:33 04:33 WBC RBC 2.71 L Hgb 8.0 L Hct 25.9 L MCHC 30.9 L RDW 15.5 H Gran % Lymph % (Auto) Gran # Lymph # (Auto) Starke # (Auto) Eosinophils % (Manual) 8 H RBC Morphology Hypochromasia Anisocytosis Few A ESR Carbon Dioxide BUN 25 H 32 H Glucose 122 H 117 H GGT 508 H 493 H Alkaline Phosphatase 208 H 207 H C-Reactive Protein Albumin 2.8 L Globulin Albumin/Globulin Ratio 0.8 L Triglycerides 224 H 223 H Urine Protein Urine Occult Blood Urine RBC Urine WBC Ur Squamous Epith Cells Urine Mucus Microbiology: Microbiology 05/23/19 11:40 Ankle - Right Gram Stain - Final 05/23/19 11:40 Ankle - Right Anaerobic Culture - Preliminary 05/23/19 11:40 Ankle - Right Gram Stain - Final 05/23/19 11:40 Ankle - Right Wound Culture - Final Staphylococcus aureus 05/22/19 20:00 Nose MRSA (PCR) - Final Assessment and Plan - Narrative A/P Narrative: A: 1. Right ankle abscess with involvement of hardware attached to right fibula: - s/p surgical debridement on 05/23/19 "Right ankle I and D ankle wound deep 3 cm by 3cm and hardware screws removal". No concerns for joint involvement per Dr Borja but given the extent of infection, and no aspiration of synovial fluid; I think she had ankle joint inv. - Operative Cx growing MSSA - pt without systemic signs/symptoms, has normal WBC Recommendations: - Stop current antibiotics - PICC line placement - Start IV Cefazolin 2 gm q8 hrs. Anticipate 4 weeks of therapy - Leg elevation to help decrease swelling will follow Gomez Renee MD Infectious diseases
[2019-05-26] MEDS: METOPROLOL TARTRATE 5 MG/5 ML VIAL IV PRN ×2 (17:31→20:18)
[2019-05-26] MEDS: SENNOSIDES 1 TABLET PO PRN (17:38)
[2019-05-26] MEDS: NORTRIPTYLINE 25 MG CAPSULE PO SCH (20:10)
[2019-05-26] MEDS: GABAPENTIN 300 MG CAPSULE PO SCH (20:13)
[2019-05-26] MEDS: MELATONIN 3 MG TABLET PO SCH (20:13)
[2019-05-27] MEDS: ceFAZolin 1 GM VIAL IV SCH ×3 (05:44→22:53)
[2019-05-27] MEDS: 0.9 % SODIUM CHLORIDE 10 ML SYRINGE IV SCH ×4 (05:45→21:05)
[2019-05-27] MEDS: 0.9 % SODIUM CHLORIDE 250 ML IV SCH (05:45)
[2019-05-27 05:48] LABS: Hematocrit 28.5 % (34.1-44.9); Hemoglobin 8.8 g/dL (11.2-15.7); Mean Corpuscular HGB Conc 30.9 g/dL (31.0-36.0); Mean Platelet Volume 9.1 fL (7.4-10.4); Platelet Count 414 K/mcL (140-440); Red Cell Distribution Width 15.2 % (11.5-14.5); WBC 10.9 K/mcL (4.50-11.00)
[2019-05-27 06:14] LABS: ALT/SGPT 20 U/l (0-40); AST/SGOT 18 U/l (0-37); Albumin 3.1 gm/dL (3.2-5.2); Albumin/Globulin Ratio 0.9 (1.0-2.3); Alkaline Phosphatase 198 U/L (39-117); Bilirubin,Direct < 0.2 mg/dL (0.0-0.3); Bilirubin,Total 0.2 mg/dL (0.0-1.0); Calcium 9.4 mg/dl (8.6-10.4); Carbon Dioxide 25 mmol/L (22-30); Chloride 101 mmol/L (96-108); Globulin 3.4 gm/dL (2.2-3.7); Glomerular Filtration Rate 53; Glucose 101 mg/dL (70-105); Lactate Dehydrogenase 188 U/L (94-250); Phosphorous 2.8 mg/dL (2.7-4.5); Triglycerides 212 mg/dl (<150); Uric Acid 5.9 mg/dL (2.5-8.0)
[2019-05-27 06:16] LABS: Blood Urea Nitrogen 22 mg/dl (8-23)
[2019-05-27 06:29] LABS: Band Neutrophils % 3 % (0-10); Eosinophils % (Manual) 3 % (0-7); Lymphocytes % 25 % (15-49); Platelet Estimate NORMAL (NORMAL); RBC Morphology ABNORM (NORMAL); Rouleaux PRESENT (NONE SEEN); Segmented Neutrophils % 69 % (38-78)
[2019-05-27] MEDS: METOCLOPRAMIDE 10 MG/2 ML VIAL IV SCH (06:30)
[2019-05-27] MEDS: oxyCODONE/APAP 5/325MG TABLET PO PRN ×3 (06:56→21:04)
[2019-05-27] MEDS: INSULIN LISPRO 1 UNIT/0.01 ML UNIT SQ SCH ×4 (06:59→21:05)
--- NOTE | 2019-05-27 07:50 | Internal Med Progress Note ---
Medical - PN: Subj Patient information: Note initiated : 05/27/19 at 7:49 am Service Date, if different from initiated Date: [] Patient: Peg Santoyo a 79 y/o F admitted on 05/22/19 for Abscess of the Right Ankle with Cellulitis. Chief Complaint: [] Interval history: Ms. Santoyo is a 79 year old F 79-year-old female presented to [place] ED on the for right foot swelling /pain and redness as well as fever. was also in A. fib RVR 150. She had a previous bimalleolar fracture of that right ankle in the past. She needed a debridement of that wound after she had had the original fracture repaired back in 2018. She has a chronic wound in that location. And has been followed by located within [facility] wound care clinic. Case was discussed with Dr. Borja initially in the ER and patient was started IV antibiotics to follow-up with him early in the week. However it seems to be progressing a CT done today shows a large abscess with gas. She has been on a diltiazem drip which is been weaned down to 5 mg/h. ESR is 102 and CRP 33. White blood cell count 16 down from 20 the previous day. He is also being treated for UTI. Currently on vancomycin and Rocephin. Patient states it all started when she tripped a week ago. Since that time developed increasing redness swelling and tenderness. Reports fevers. 05/22 Slept well. No overnight events. The diltiazem drip 5 mg stopped last night but restarted about an hour ago for heart rates to the 110's. Transition to oral beta-kirby 05/23-patient doing well. No overnight events. No concerns per staff. JOESPH drain clotted blood. Dressing change ongoing. Continuing postoperative care per orthopedics. No fever chills. Intermittent nausea this morning. White count down from 3.6-9.2. 05/24-patient doing well. Intermittent dizzy with blood pressure around 106. Held antihypertensives today. Pradaxa on hold for another 24 hours in light of bloody drainage at surgery site. No overnight fever chills. Staph aureus on culture final sensitivity pending. On antibiotic coverage including Clinda/cefepime/vancomycin. 05/25-patient doing well. ongoing postoperative rehab. Intermittent A. fib requiring digoxin. Antihypertensives on hold. Systolic stable. Renal function stable. ID consulted. 05/26-persistent tachycardia. Start oral beta-kirby. Feels a lot better since previous day. Improved dizziness. Likely positional vertigo. Attempt vestibular rehab. No telemetry events. No anxiety. Wound culture staph aureus. ID recommends 4 weeks of cefazolin. White count down to 10.9 - Constitutional Vitals: Vital Signs Temp Pulse Resp BP Pulse Ox 98.1 F 111 H 18 112/80 95 05/27/19 07:21 05/26/19 23:00 05/27/19 07:08 05/27/19 07:01 05/27/19 05:00 Period Temp Pulse Resp BP Sys/Ennis Pulse Ox Last 24 Hr 97.0 F-98.4 F 91-118 12-27 109-140/53-99 88-97 Intake and Output 05/26/19 05/27/19 05/27/19 21:59 05:59 13:59 Intake Total 400 280 Output Total 375 525 0 Balance 25 -245 0 Weight 218 lb 6.4 oz Intake & Output: Intake & Output 05/26/19 05/27/19 05/27/19 21:59 05:59 13:59 Intake Total 400 280 Output Total 375 525 0 Balance 25 -245 0 Weight 218 lb 6.4 oz Intake: Oral 400 280 Output: Drainage 0 0 0 Right Lower Leg 0 0 0 Void Amount 375 525 Other: Meal Yogurt Percent of Meal Consumed 50% Feeding Ability Independent Urine Appearance Clear Clear Urine Color Light Rosaura Bright Yellow # Emeses 0 General appearance: no acute distress Exam: Alert oriented Nonlabored breathing Nondistended nontender abdomen Medical - PN: Obj Da - Labs CBC & Chem 7: 05/27/19 04:16 05/27/19 04:16 Labs: Abnormal Lab Results 05/27/19 05/27/19 05/26/19 04:16 04:16 04:33 RBC 3.00 L Hgb 8.8 L Hct 28.5 L MCHC 30.9 L RDW 15.2 H Eosinophils % (Manual) RBC Morphology Abnorm A Hypochromasia Anisocytosis Rouleaux Present A BUN 32 H Glucose 117 H GGT 471 H 493 H Alkaline Phosphatase 198 H 207 H Albumin 3.1 L 2.8 L Albumin/Globulin Ratio 0.9 L 0.8 L Triglycerides 212 H 223 H 05/26/19 05/25/19 05/25/19 04:33 11:12 11:12 RBC 2.71 L 2.86 L Hgb 8.0 L 8.4 L Hct 25.9 L 27.2 L MCHC 30.9 L 30.9 L RDW 15.5 H 14.9 H Eosinophils % (Manual) 8 H RBC Morphology Abnorm A Hypochromasia 1+ A Anisocytosis Few A 1+ A Rouleaux BUN 25 H Glucose 122 H GGT 508 H Alkaline Phosphatase 208 H Albumin Albumin/Globulin Ratio Triglycerides 224 H Meds: Medications Acetaminophen (Tylenol) 650 mg PO Q6HP PRN PRN Reason: PAIN/FEVER > 101 Last Admin: 05/25/19 07:54 Dose: 650 mg Documented by: Albuterol/Ipratropium (Duoneb) 3 ml NEB Q4HP PRN PRN Reason: Shortness Of Breath Aspirin (Aspirin) 81 mg PO DAILY [facility] Last Admin: 05/26/19 09:22 Dose: 81 mg Documented by: Cefazolin Sodium (Ancef) 2 gm IV Q8H [facility] Last Admin: 05/27/19 05:44 Dose: 2 gm Documented by: Dextrose (Dextrose 50%) 0 ml IV UD PRN PRN Reason: Hypoglycemia Diagnostic Test (Pha) (Accu-Chek) 1 each FS ACHS [facility] Last Admin: 05/27/19 06:58 Dose: 1 each Documented by: Docusate Sodium (Colace) 100 mg PO BID [facility] Last Admin: 05/26/19 20:13 Dose: 100 mg Documented by: Folic Acid (Folic Acid) 1 mg PO DAILY [facility] Last Admin: 05/26/19 09:22 Dose: 1 mg Documented by: Gabapentin (Neurontin) 600 mg PO HS [facility] Last Admin: 05/26/19 20:13 Dose: 600 mg Documented by: Gabapentin (Neurontin) 400 mg PO TID@0800,1200,1600 [facility] Last Admin: 05/26/19 16:16 Dose: 400 mg Documented by: Glucose (Insta-Glucose) 15 gm PO PRN PRN PRN Reason: Hypoglycemia Heparin Sodium (Porcine) (Heparin) 5,000 unit SQ Q12 [facility] Last Admin: 05/26/19 20:18 Dose: 5,000 unit Documented by: Potassium Chloride 40 meq/ (Dextrose) 520 mls @ 130 mls/hr IV UD PRN PRN Reason: Potassium < 3 Magnesium Sulfate (Magnesium Sulfate) 2 gm in 50 mls @ 50 mls/hr IV UD PRN PRN Reason: Magnesium </= 1.6 Sodium Chloride (Sodium Chloride 0.9%) 250 mls @ 20 mls/hr IV .[id number] [facility] Last Admin: 05/27/19 05:45 Dose: Not Given Documented by: Diltiazem HCl 125 mg/ Dextrose 125 mls @ 5 mls/hr IV Q12HP PRN; Protocol PRN Reason: Tachyarrhythmias Insulin Human Lispro (Humalog) 0 unit SQ ACHS [facility]; Protocol Last Admin: 05/27/19 06:59 Dose: Not Given Documented by: Lactobacillus Rhamnosus (Culturelle) 1 cap PO BID [facility] Last Admin: 05/26/19 20:13 Dose: 1 cap Documented by: Levothyroxine Sodium (Synthroid) 50 mcg PO [facility] Last Admin: 05/26/19 07:43 Dose: 50 mcg Documented by: Melatonin (Melatonin 3mg Tablet) 3 mg PO [facility] Last Admin: 05/26/19 20:13 Dose: 3 mg Documented by: Metoclopramide HCl (Reglan) 5 mg IV [facility] Last Admin: 05/27/19 06:30 Dose: 5 mg Documented by: Metoprolol Succinate (Toprol Xl) 25 mg PO DAILY [facility] Last Admin: 05/26/19 09:22 Dose: Not Given Documented by: Metoprolol Succinate (Toprol Xl) 100 mg PO DAILY [facility] Last Admin: 05/26/19 09:23 Dose: Not Given Documented by: Metoprolol Tartrate (Lopressor) 5 mg IV Q2HP PRN PRN Reason: Tachyarrhythmias HR>110 Last Admin: 05/26/19 20:18 Dose: 5 mg Documented by: Nortriptyline HCl (Pamelor) 150 mg PO [facility] Last Admin: 05/26/19 20:10 Dose: 150 mg Documented by: Ondansetron HCl (Zofran) 4 mg IV Q4HP PRN PRN Reason: Nausea And Vomiting Last Admin: 05/26/19 12:04 Dose: 4 mg Documented by: Oxycodone/Acetaminophen (Percocet 5-325 Mg) 1 tab PO Q4HP PRN PRN Reason: PAIN LEVEL 3-6 Last Admin: 05/27/19 06:56 Dose: 1 tab Documented by: Polyethylene Glycol (Miralax) 17 gm PO DAILYP PRN PRN Reason: Constipation Potassium Chloride (Kdur) 40 meq PO UD PRN PRN Reason: Potssium is 3-3.5 Potassium Chloride (Kdur) 40 meq PO UD PRN PRN Reason: Potassium < 3 Senna (Senokot) 2 tab PO DAILYP PRN PRN Reason: Constipation Last Admin: 05/26/19 17:38 Dose: 2 tab Documented by: Sodium Chloride (Saline Flush) 10 ml IV Q8 [facility] Last Admin: 05/27/19 05:45 Dose: 10 ml Documented by: Spironolactone (Aldactone) 12.5 mg PO DAILY [facility] Last Admin: 05/26/19 09:22 Dose: Not Given Documented by: Throat Lozenges (Cepacol) 1 lozenge PO PRN PRN PRN Reason: Sore Throat Medical - PN: A/P - Time Spent With Patient Total time spent is greater than 50% in coordination of care (as documented) at patient's floor/unit and/or counseling patient: 25 - 35 minutes - Narrative A/P Narrative: * Right ankle cellulitis/abscess noted on CT . status post I&D and hardware removal. MSSA on culture. On 4 weeks IV cefazolin * Chronic RLE wound: Continue management per wound care * A. fib RVR off diltiazem drip. Status post digoxin load. Now on beta-kirby rate controlled. Aspirin for CVA prophylaxis * SIRS: Resolved * UTI: Resolved on antibiotic coverage * DM w/neuropathy: diet controlled * h/o systolic(45%)/diastolic CHF: * CKD III: At baseline * Hypothyroidism-on home dose thyroxine * Dementia: At baseline * Anxiety/depression: * Obesity: Continue directed therapies Plan * 4 weeks cefazolin IV * Place PICC line * Continue wound care per Dr. Guaman * Start beta-kirby * SSI * pt/ot Medical - PN: Qual - VTE Deep Vein Thrombosis/Pulmonary Embolism Present on Admission: No
[2019-05-27] MEDS: LACTOBACILLUS 1 CAPSULE PO SCH ×2 (07:58→21:04)
[2019-05-27] MEDS: METOPROLOL SUCCINATE 50 MG TAB.XL.24H PO SCH (07:58)
[2019-05-27] MEDS: LEVOTHYROXINE 50 MCG TABLET PO SCH (07:58)
[2019-05-27] MEDS: SENNOSIDES 1 TABLET PO PRN (07:58)
[2019-05-27] MEDS: DOCUSATE SODIUM 100 MG CAPSULE PO SCH ×2 (07:58→21:05)
[2019-05-27] MEDS: GABAPENTIN 400 MG CAPSULE PO SCH ×3 (07:58→15:50)
[2019-05-27] MEDS: FOLIC ACID 1 MG TABLET PO SCH (07:59)
[2019-05-27] MEDS: HEPARIN 5,000 UNIT/ML VIAL SQ SCH ×2 (07:59→08:09)
[2019-05-27] MEDS: ASPIRIN 81 MG TAB.CHEW PO SCH (07:59)
[2019-05-27] MEDS: DABIGATRAN ETEXILATE MESYLATE 75 MG CAPSULE PO SCH ×2 (09:12→21:03)
[2019-05-27] MEDS: SPIRONOLACTONE 25 MG TABLET PO SCH (09:13)
[2019-05-27] MEDS: METOPROLOL SUCCINATE 25 MG TAB.XL.24H PO SCH (09:14)
[2019-05-27] MEDS: METOCLOPRAMIDE 10 MG TABLET PO SCH ×2 (11:49→18:13)
--- NOTE | 2019-05-27 15:25 | Infectious Disease Prog Note ---
Subjective Patient information: Note initiated : 05/27/19 at 3:22 pm Service Date, if different from initiated Date: [] Patient: Peg Santoyo 79 y/o F admitted on 05/22/19 for Abscess of the Right Ankle with Cellulitis. Chief Complaint: [] Interval history: Pt doing fine. Denied any fever, chills, n/v, diarrhea. Endorses right leg swelling, redness. Is keeping the leg elevated as instructed. Objective Objective Narrative: ao x 3 , in nad no thrush right leg and foot are swollen, but less red and tender. The surgical incision and wound wrapped in dressing, no soakage. Pt can wiggle toes without any difficulty. - Vital Signs Vital signs: Vital Signs Temp Pulse Resp BP Pulse Ox 05/27/19 13:17 18 97 05/27/19 11:57 37.2 C 20 111/86 97 05/27/19 10:31 17 05/27/19 10:01 13 109/72 05/27/19 09:01 13 106/70 05/27/19 08:26 17 111/71 05/27/19 08:02 17 110/70 05/27/19 07:21 36.7 C 05/27/19 07:08 18 05/27/19 07:02 12 113/80 05/27/19 07:01 17 112/80 05/27/19 06:36 14 05/27/19 06:00 12 140/78 05/27/19 05:00 36.1 C 14 127/80 95 05/27/19 04:01 13 129/59 05/27/19 03:01 14 135/77 05/27/19 02:01 19 136/99 96 05/27/19 01:00 13 135/60 05/27/19 00:00 36.2 C 14 115/53 94 05/26/19 23:00 111 H 14 131/73 96 05/26/19 22:45 94 05/26/19 22:01 17 132/74 05/26/19 21:02 27 H 136/71 05/26/19 20:02 19 120/82 96 05/26/19 19:01 13 128/57 05/26/19 18:04 21 05/26/19 18:01 19 117/64 05/26/19 16:00 36.9 C 118 H 18 119/79 97 Intake and Output 05/27/19 05/27/19 05/27/19 05:59 13:59 21:59 Intake Total 280 Output Total 525 0 Balance -245 0 Intake: Oral 280 Output: Drainage 0 0 Right Lower Leg 0 0 Void Amount 525 Other: Urine Appearance Clear Urine Color Bright Yellow # Emeses 0 Weight 99.065 kg Intake & Output: Intake & Output 05/27/19 05/27/19 05/27/19 05:59 13:59 21:59 Intake Total 280 Output Total 525 0 Balance -245 0 Weight 99.065 kg Intake: Oral 280 Output: Drainage 0 0 Right Lower Leg 0 0 Void Amount 525 Other: Urine Appearance Clear Urine Color Bright Yellow # Emeses 0 - Lab 05/29/19 04:20 05/29/19 04:20 Most recent lab results Calcium 9.4 mg/dl (8.6-10.4) 05/27/19 04:16 Phosphorus 2.8 mg/dL (2.7-4.5) 05/27/19 04:16 Magnesium 2.2 mg/dL (1.6-2.5) 05/27/19 04:16 Microbiology 05/23/19 11:40 Ankle - Right Gram Stain - Final 05/23/19 11:40 Ankle - Right Anaerobic Culture - Preliminary 05/23/19 11:40 Ankle - Right Gram Stain - Final 05/23/19 11:40 Ankle - Right Wound Culture - Final Staphylococcus aureus 05/22/19 20:00 Nose MRSA (PCR) - Final Medications Active Medications: Acetaminophen (Tylenol) 650 mg PO Q6HP PRN PRN Reason: PAIN/FEVER > 101 Last Admin: 05/25/19 07:54 Dose: 650 mg Documented by: Admin: 05/24/19 19:08 Dose: 650 mg Documented by: Admin: 05/24/19 10:12 Dose: 650 mg Documented by: PEPE Albuterol/Ipratropium (Duoneb) 3 ml NEB Q4HP PRN PRN Reason: Shortness Of Breath Aspirin (Aspirin) 81 mg PO DAILY [facility] Last Admin: 05/27/19 07:59 Dose: 81 mg Documented by: Admin: 05/26/19 09:22 Dose: 81 mg Documented by: PALLAVI Cefazolin Sodium (Ancef) 2 gm IV Q8H [facility] Admin: 05/27/19 14:00 Dose: 2 gm Documented by: Admin: 05/27/19 05:44 Dose: 2 gm Documented by: Admin: 05/26/19 22:23 Dose: 2 gm Documented by: Admin: 05/26/19 16:14 Dose: 2 gm Documented by: Admin: 05/26/19 11:14 Dose: 2 gm Documented by: PALLAVI Dabigatran (Pradaxa) 150 mg PO BID [facility] Last Admin: 05/27/19 09:12 Dose: 150 mg Documented by: IVAN Dextrose (Dextrose 50%) 0 ml IV UD PRN PRN Reason: Hypoglycemia Diagnostic Test (Pha) (Accu-Chek) 1 each FS ACHS [facility] Last Admin: 05/27/19 11:50 Dose: 1 each Documented by: Admin: 05/27/19 06:58 Dose: 1 each Documented by: Admin: 05/26/19 20:17 Dose: 1 each Documented by: Admin: 05/26/19 17:21 Dose: 1 each Documented by: Admin: 05/26/19 11:18 Dose: 1 each Documented by: Admin: 05/26/19 07:43 Dose: 1 each Documented by: Admin: 05/25/19 20:52 Dose: 1 each Documented by: Admin: 05/25/19 17:20 Dose: 1 each Documented by: Admin: 05/25/19 11:53 Dose: 1 each Documented by: Admin: 05/25/19 07:32 Dose: 1 each Documented by: Admin: 05/24/19 19:22 Dose: 1 each Documented by: Admin: 05/24/19 16:51 Dose: 1 each Documented by: Admin: 05/24/19 11:44 Dose: 1 each Documented by: Admin: 05/24/19 07:56 Dose: 1 each Documented by: Admin: 05/23/19 20:45 Dose: 1 each Documented by: Admin: 05/23/19 16:44 Dose: 1 each Documented by: Admin: 05/23/19 12:58 Dose: 1 each Documented by: Admin: 05/23/19 07:22 Dose: 1 each Documented by: Admin: 05/22/19 20:57 Dose: Not Given Documented by: IVAN Non-Admin Reason: see other charting Admin: 05/22/19 20:33 Dose: 1 each Documented by: IVAN Docusate Sodium (Colace) 100 mg PO BID [facility] Last Admin: 05/27/19 07:58 Dose: 100 mg Documented by: Admin: 05/26/19 20:13 Dose: 100 mg Documented by: Admin: 05/26/19 09:22 Dose: 100 mg Documented by: Admin: 05/25/19 20:53 Dose: 100 mg Documented by: Admin: 05/25/19 09:09 Dose: 100 mg Documented by: Admin: 05/24/19 19:07 Dose: 100 mg Documented by: Admin: 05/24/19 09:31 Dose: 100 mg Documented by: Admin: 05/23/19 20:43 Dose: 100 mg Documented by: Admin: 05/23/19 10:41 Dose: Not Given Documented by: PEPE Non-Admin Reason: Not In Room Admin: 05/22/19 20:31 Dose: 100 mg Documented by: IVAN Folic Acid (Folic Acid) 1 mg PO DAILY [facility] Last Admin: 05/27/19 07:59 Dose: 1 mg Documented by: Admin: 05/26/19 09:22 Dose: 1 mg Documented by: PALLAVI Gabapentin (Neurontin) 600 mg PO HS [facility] Last Admin: 05/26/19 20:13 Dose: 600 mg Documented by: Admin: 05/25/19 20:53 Dose: 600 mg Documented by: Admin: 05/24/19 19:07 Dose: 600 mg Documented by: Admin: 05/23/19 20:42 Dose: 600 mg Documented by: DEAN Gabapentin (Neurontin) 400 mg PO TID@0800,1200,1600 [facility] Last Admin: 05/27/19 11:49 Dose: 400 mg Documented by: Admin: 05/27/19 07:58 Dose: 400 mg Documented by: Admin: 05/26/19 16:16 Dose: 400 mg Documented by: Admin: 05/26/19 11:22 Dose: 400 mg Documented by: Admin: 05/26/19 07:43 Dose: 400 mg Documented by: Admin: 05/25/19 15:48 Dose: 400 mg Documented by: Admin: 05/25/19 12:35 Dose: 400 mg Documented by: Admin: 05/25/19 07:42 Dose: 400 mg Documented by: Admin: 05/24/19 15:54 Dose: 400 mg Documented by: Admin: 05/24/19 11:40 Dose: 400 mg Documented by: Admin: 05/24/19 09:31 Dose: 400 mg Documented by: Admin: 05/23/19 16:37 Dose: 400 mg Documented by: Admin: 05/23/19 12:33 Dose: Not Given Documented by: PEPE Non-Admin Reason: Pt sedated, post op Glucose (Insta-Glucose) 15 gm PO PRN PRN PRN Reason: Hypoglycemia Heparin Sodium (Porcine) (Heparin Flush) 2 ml IV Q12 [facility] Last Admin: 05/27/19 10:11 Dose: Not Given Documented by: IVAN Non-Admin Reason: picc not established at this time Potassium Chloride 40 meq/ (Dextrose) 520 mls @ 130 mls/hr IV UD PRN PRN Reason: Potassium < 3 Magnesium Sulfate (Magnesium Sulfate) 2 gm in 50 mls @ 50 mls/hr IV UD PRN PRN Reason: Magnesium </= 1.6 Sodium Chloride (Sodium Chloride 0.9%) 250 mls @ 20 mls/hr IV .[id number] [facility] Last Admin: 05/27/19 05:45 Dose: Not Given Documented by: NIDHI Non-Admin Reason: No Coverage Needed Admin: 05/26/19 17:22 Dose: Not Given Documented by: PALLAVI Non-Admin Reason: not needed at this time Admin: 05/26/19 04:14 Dose: Not Given Documented by: PRINCESS Non-Admin Reason: Duplicate Infusion: 05/26/19 04:13 Dose: 0 mls/hr Documented by: Admin: 05/25/19 15:29 Dose: 20 mls/hr Documented by: Infusion: 05/25/19 07:38 Dose: 20 mls/hr Documented by: Admin: 05/25/19 04:14 Dose: Not Given Documented by: IVAN Non-Admin Reason: Bag Still Infusing Admin: 05/24/19 19:08 Dose: 20 mls/hr Documented by: Infusion: 05/24/19 19:08 Dose: 0 mls/hr Documented by: Admin: 05/24/19 15:55 Dose: Not Given Documented by: PEPE Non-Admin Reason: Bag Still Infusing Admin: 05/24/19 04:17 Dose: Not Given Documented by: DEAN Non-Tasha Reason: not needed Infusion: 05/23/19 20:00 Dose: 0 mls/hr Documented by: Admin: 05/23/19 14:00 Dose: 20 mls/hr Documented by: PEPE Diltiazem HCl 125 mg/ Dextrose 125 mls @ 5 mls/hr IV Q12HP PRN; Protocol PRN Reason: Tachyarrhythmias Insulin Human Lispro (Humalog) 0 unit SQ ACHS [facility]; Protocol Last Admin: 05/27/19 11:50 Dose: Not Given Documented by: IVAN Non-Admin Reason: No Coverage Needed Admin: 05/27/19 06:59 Dose: Not Given Documented by: IVAN Non-Admin Reason: No Coverage Needed Admin: 05/26/19 20:18 Dose: Not Given Documented by: NIDHI Non-Admin Reason: No Coverage Needed Admin: 05/26/19 17:21 Dose: Not Given Documented by: PALLAVI Non-Admin Reason: No Coverage Needed Admin: 05/26/19 11:40 Dose: Not Given Documented by: PALLAVI Non-Admin Reason: No Coverage Needed Admin: 05/26/19 07:43 Dose: Not Given Documented by: ZACKERY Non-Admin Reason: No Coverage Needed Admin: 05/25/19 20:52 Dose: Not Given Documented by: PRINCESS Non-Admin Reason: No Coverage Needed Admin: 05/25/19 17:24 Dose: Not Given Documented by: ROWDY Non-Admin Reason: No Coverage Needed Admin: 05/25/19 11:58 Dose: Not Given Documented by: ROWDY Non-Admin Reason: No Coverage Needed Admin: 05/25/19 07:39 Dose: Not Given Documented by: ROWDY Non-Admin Reason: No Coverage Needed Admin: 05/24/19 19:23 Dose: Not Given Documented by: IVAN Non-Admin Reason: No Coverage Needed Admin: 05/24/19 17:05 Dose: 2 unit Documented by: Admin: 05/24/19 11:59 Dose: 2 unit Documented by: Admin: 05/24/19 08:37 Dose: Not Given Documented by: PEPE Non-Admin Reason: Clinical Judgement Comments: nausea Admin: 05/23/19 20:47 Dose: Not Given Documented by: DEAN Non-Tasha Reason: Clinical Judgement Admin: 05/23/19 16:54 Dose: 2 unit Documented by: Admin: 05/23/19 12:58 Dose: Not Given Documented by: PEPE Non-Tasha Reason: No Coverage Needed Admin: 05/23/19 07:34 Dose: Not Given Documented by: PEPE Deleon-Admin Reason: No Coverage Needed Admin: 05/22/19 20:58 Dose: Not Given Documented by: IVAN Non-Admin Reason: see other charting Admin: 05/22/19 20:33 Dose: Not Given Documented by: IVAN Non-Admin Reason: No Coverage Needed Lactobacillus Rhamnosus (Culturelle) 1 cap PO BID [facility] Last Admin: 05/27/19 07:58 Dose: 1 cap Documented by: Admin: 05/26/19 20:13 Dose: 1 cap Documented by: Admin: 05/26/19 09:22 Dose: 1 cap Documented by: Admin: 05/25/19 20:53 Dose: 1 cap Documented by: Admin: 05/25/19 09:10 Dose: 1 cap Documented by: Admin: 05/24/19 19:07 Dose: 1 cap Documented by: Admin: 05/24/19 09:31 Dose: 1 cap Documented by: Admin: 05/23/19 20:42 Dose: 1 cap Documented by: Admin: 05/23/19 10:42 Dose: Not Given Documented by: PEPE Non-Admin Reason: Not In Room Admin: 05/22/19 20:31 Dose: 1 cap Documented by: IVAN Levothyroxine Sodium (Synthroid) 50 mcg PO ACB [facility] Last Admin: 05/27/19 07:58 Dose: 50 mcg Documented by: Admin: 05/26/19 07:43 Dose: 50 mcg Documented by: Admin: 05/25/19 07:23 Dose: 50 mcg Documented by: Admin: 05/24/19 07:56 Dose: 50 mcg Documented by: PEPE Comments: PC in room, verified name & and dosage manually Admin: 05/23/19 10:42 Dose: Not Given Documented by: PEPE Non-Admin Reason: Not In Room Melatonin (Melatonin 3mg Tablet) 3 mg PO HS [facility] Last Admin: 05/26/19 20:13 Dose: 3 mg Documented by: Admin: 05/25/19 20:53 Dose: 3 mg Documented by: Admin: 05/24/19 19:07 Dose: 3 mg Documented by: Admin: 05/23/19 20:43 Dose: 3 mg Documented by: DEAN Metoclopramide HCl (Reglan) 5 mg PO TIDAC [facility] Last Admin: 05/27/19 11:49 Dose: 5 mg Documented by: IVAN Metoprolol Succinate (Toprol Xl) 25 mg PO DAILY [facility] Last Admin: 05/27/19 09:14 Dose: Not Given Documented by: IVAN Non-Admin Reason: per MD Admin: 05/26/19 09:22 Dose: Not Given Documented by: PALLAVI Non-Admin Reason: Hold per MD Admin: 05/25/19 10:07 Dose: Not Given Documented by: ROWDY Non-Admin Reason: Held per physician Metoprolol Succinate (Toprol Xl) 100 mg PO DAILY [facility] Last Admin: 05/27/19 07:58 Dose: 100 mg Documented by: Admin: 05/26/19 09:23 Dose: Not Given Documented by: PALLAVI Non-Admin Reason: hold per MD Admin: 05/25/19 10:07 Dose: Not Given Documented by: ROWDY Non-Admin Reason: Held per physician Metoprolol Tartrate (Lopressor) 5 mg IV Q2HP PRN PRN Reason: Tachyarrhythmias HR>110 Last Admin: 05/26/19 20:18 Dose: 5 mg Documented by: Admin: 05/26/19 17:31 Dose: 5 mg Documented by: Admin: 05/25/19 18:29 Dose: 5 mg Documented by: Admin: 05/25/19 15:49 Dose: 5 mg Documented by: Admin: 05/24/19 01:50 Dose: 5 mg Documented by: Admin: 05/23/19 05:57 Dose: 5 mg Documented by: Admin: 05/23/19 04:04 Dose: 5 mg Documented by: IVAN Nortriptyline HCl (Pamelor) 150 mg PO HS [facility] Last Admin: 05/26/19 20:10 Dose: 150 mg Documented by: Admin: 05/25/19 20:53 Dose: 150 mg Documented by: Admin: 05/24/19 19:07 Dose: 150 mg Documented by: Admin: 05/23/19 20:42 Dose: 150 mg Documented by: DEAN Ondansetron HCl (Zofran) 4 mg IV Q4HP PRN PRN Reason: Nausea And Vomiting Last Admin: 05/26/19 12:04 Dose: 4 mg Documented by: Admin: 05/24/19 12:49 Dose: 4 mg Documented by: Admin: 05/24/19 07:55 Dose: 4 mg Documented by: Admin: 05/23/19 17:41 Dose: 4 mg Documented by: PEPE Oxycodone/Acetaminophen (Percocet 5-325 Mg) 1 tab PO Q4HP PRN PRN Reason: PAIN LEVEL 3-6 Last Admin: 05/27/19 11:55 Dose: 1 tab Documented by: Admin: 05/27/19 06:56 Dose: 1 tab Documented by: Admin: 05/26/19 00:35 Dose: 1 tab Documented by: Admin: 05/25/19 19:09 Dose: 1 tab Documented by: Admin: 05/25/19 13:20 Dose: 1 tab Documented by: Admin: 05/24/19 12:49 Dose: 1 tab Documented by: Admin: 05/23/19 20:43 Dose: 1 tab Documented by: Admin: 05/23/19 14:09 Dose: 1 tab Documented by: PEPE Polyethylene Glycol (Miralax) 17 gm PO DAILYP PRN PRN Reason: Constipation Potassium Chloride (Kdur) 40 meq PO UD PRN PRN Reason: Potssium is 3-3.5 Potassium Chloride (Kdur) 40 meq PO UD PRN PRN Reason: Potassium < 3 Senna (Senokot) 2 tab PO DAILYP PRN PRN Reason: Constipation Last Admin: 05/27/19 07:58 Dose: 2 tab Documented by: Admin: 05/26/19 17:38 Dose: 2 tab Documented by: Admin: 05/24/19 19:07 Dose: 2 tab Documented by: IVAN Sodium Chloride (Saline Flush) 10 ml IV Q8 [facility] Last Admin: 05/27/19 14:00 Dose: 10 ml Documented by: Admin: 05/27/19 05:45 Dose: 10 ml Documented by: Admin: 05/26/19 22:23 Dose: 10 ml Documented by: Admin: 05/26/19 12:04 Dose: 10 ml Documented by: Admin: 05/26/19 05:48 Dose: 10 ml Documented by: Admin: 05/25/19 20:54 Dose: 10 ml Documented by: Admin: 05/25/19 13:27 Dose: 10 ml Documented by: Admin: 05/25/19 04:18 Dose: Not Given Documented by: IVAN Non-Admin Reason: Continuous IV Admin: 05/24/19 20:19 Dose: Not Given Documented by: IVAN Non-Admin Reason: Continuous IV Admin: 05/24/19 14:11 Dose: Not Given Documented by: PEPE Non-Admin Reason: Bag Still Infusing Admin: 05/24/19 05:07 Dose: Not Given Documented by: DEAN Non-Admin Reason: Continuous IV Admin: 05/23/19 20:52 Dose: Not Given Documented by: DEAN Non-Admin Reason: Duplicate Admin: 05/23/19 13:59 Dose: 10 ml Documented by: PEPE Sodium Chloride (Saline Flush) 10 ml IV Q12 [facility] Last Admin: 05/27/19 09:13 Dose: Not Given Documented by: IVAN Non-Admin Reason: see other charting Spironolactone (Aldactone) 12.5 mg PO DAILY [facility] Last Admin: 05/27/19 09:13 Dose: Not Given Documented by: IVAN Non-Admin Reason: Clinical Judgement Admin: 05/26/19 09:22 Dose: Not Given Documented by: PALLAVI Non-Admin Reason: MD request to hold Admin: 05/25/19 10:06 Dose: Not Given Documented by: ROWDY Non-Admin Reason: Held per physician Admin: 05/24/19 09:31 Dose: 12.5 mg Documented by: Admin: 05/23/19 10:41 Dose: Not Given Documented by: PEPE Non-Admin Reason: Not In Room Throat Lozenges (Cepacol) 1 lozenge PO PRN PRN PRN Reason: Sore Throat Assessment and Plan - Narrative A/P Narrative: A: 1. Right ankle abscess with involvement of hardware attached to right fibula: - s/p surgical debridement on 05/23/19 "Right ankle I and D ankle wound deep 3 cm by 3cm and hardware screws removal". No concerns for joint involvement per Dr Borja but given the extent of infection, and no aspiration of synovial fluid; I think she had ankle joint inv. - Operative Cx growing MSSA - pt without systemic signs/symptoms, has normal WBC Recommendations: - PICC line placement - Continue IV Cefazolin 2 gm q8 hrs. Tentative stop date of 06/20/19 - f/u in ID clinic in 4 weeks (06/20/19 at 10 am) - f/u labs as OP: CBC, BMP weekly ESR, CRP every other week Gomez Víctor, MD Infectious diseases
[2019-05-27] MEDS: POLYETHYLENE GLYCOL 3350 17 GM PACKET PO PRN (21:03)
[2019-05-27] MEDS: NORTRIPTYLINE 25 MG CAPSULE PO SCH (21:03)
[2019-05-27] MEDS: GABAPENTIN 300 MG CAPSULE PO SCH (21:04)
[2019-05-27] MEDS: MELATONIN 3 MG TABLET PO SCH (21:04)
[2019-05-28] MEDS: oxyCODONE/APAP 5/325MG TABLET PO PRN ×2 (04:03→17:49)
[2019-05-28] MEDS: ceFAZolin 1 GM VIAL IV SCH ×3 (06:11→21:02)
[2019-05-28 06:46] LABS: Hematocrit 27.1 % (34.1-44.9); Hemoglobin 8.7 g/dL (11.2-15.7); Mean Cell Volume 93.4 fL (80.0-100.0); Mean Corpuscular HGB Conc 32.1 g/dL (31.0-36.0); Mean Platelet Volume 9.1 fL (7.4-10.4); Platelet Count 465 K/mcL (140-440); Red Cell Distribution Width 15.1 % (11.5-14.5); WBC 13.7 K/mcL (4.50-11.00)
[2019-05-28 07:21] LABS: ALT/SGPT 11 U/l (0-40); AST/SGOT 15 U/l (0-37); Albumin 3.2 gm/dL (3.2-5.2); Alkaline Phosphatase 183 U/L (39-117); Bilirubin,Direct < 0.2 mg/dL (0.0-0.3); Bilirubin,Total 0.2 mg/dL (0.0-1.0); Blood Urea Nitrogen 18 mg/dl (8-23); Calcium 9.3 mg/dl (8.6-10.4); Carbon Dioxide 26 mmol/L (22-30); Chloride 98 mmol/L (96-108); Globulin 3.3 gm/dL (2.2-3.7); Glomerular Filtration Rate 60; Glucose 107 mg/dL (70-105); Lactate Dehydrogenase 198 U/L (94-250); Phosphorous 3.1 mg/dL (2.7-4.5); Triglycerides 241 mg/dl (<150); Uric Acid 4.9 mg/dL (2.5-8.0)
--- NOTE | 2019-05-28 07:37 | XRay Report ---
CLINICAL INFORMATION: PICC PLACEMENT COMPARISON: 03/12/2018 FINDINGS: PICC line tip overlies the right atrium and moderate cardiomegaly is unchanged. Mediastinum is unremarkable. Upper lobe pulmonary vessels show slight redistribution. No edema. Lungs are clear. No effusions IMPRESSION: PICC line tip overlying the right atrium. Nurses were instructed to withdraw the line 4 cm Interpreted and Authenticated by: Justice Jay 05/28/19
[2019-05-28] MEDS: LEVOTHYROXINE 50 MCG TABLET PO SCH (08:02)
[2019-05-28] MEDS: GABAPENTIN 400 MG CAPSULE PO SCH ×3 (08:02→15:35)
[2019-05-28] MEDS: METOCLOPRAMIDE 10 MG TABLET PO SCH ×3 (08:02→17:32)
[2019-05-28] MEDS: INSULIN LISPRO 1 UNIT/0.01 ML UNIT SQ SCH ×4 (08:04→21:02)
[2019-05-28 08:15] LABS: Anisocytosis 1+ (NONE SEEN); Eosinophils % (Manual) 2 % (0-7); Lymphocytes % 27 % (15-49); Monocytes % (Manual) 11 % (1-12); Platelet Estimate INCREASED (NORMAL); RBC Morphology ABNORM (NORMAL); Segmented Neutrophils % 60 % (38-78)
--- NOTE | 2019-05-28 08:58 | Orthopedic Progress Note ---
Subjective Patient information: Note initiated : 05/28/19 at 8:55 am Service Date, if different from initiated Date: [] Patient: Peg Santoyo 79 y/o F admitted on 05/22/19 for Abscess of the Right Ankle with Cellulitis. Chief Complaint: [no cp no dizziness and fells much better and wound drain minimal or no output] Objective Vital signs: Vital Signs Temp Resp BP Pulse Ox 05/28/19 07:26 98.4 F 16 118/72 100 05/28/19 06:02 13 117/71 97 05/28/19 04:02 98.8 F 17 135/72 98 05/28/19 02:02 13 117/58 97 05/28/19 02:00 97 05/28/19 00:01 97.6 F 12 92/76 95 05/27/19 22:01 20 126/91 97 05/27/19 21:36 15 110/66 96 05/27/19 20:01 98.3 F 13 123/62 97 05/27/19 20:00 97 05/27/19 19:26 17 118/56 98 05/27/19 18:01 17 145/71 96 05/27/19 17:55 22 05/27/19 17:01 17 130/93 05/27/19 16:02 13 126/75 05/27/19 15:43 98.4 F 16 121/67 93 05/27/19 15:08 17 121/67 05/27/19 15:01 12 134/87 05/27/19 14:01 18 117/77 05/27/19 13:17 18 97 05/27/19 13:02 20 117/71 05/27/19 12:01 17 112/78 05/27/19 11:57 98.9 F 20 111/86 97 05/27/19 11:32 15 117/86 05/27/19 11:03 13 116/62 05/27/19 10:31 17 05/27/19 10:01 13 109/72 05/27/19 09:01 13 106/70 Intake and Output 05/27/19 05/28/19 05/28/19 21:59 05:59 13:59 Intake Total 500 Output Total 775 650 250 Balance -275 -650 -250 Intake: Oral 500 Output: Drainage 0 0 Right Lower Leg 0 0 Void Amount 775 650 250 Other: Urine Appearance Clear Clear Urine Color Bright Yellow Dark Yellow Urine Odor Normal Stool Size Small Stool Color Brown Stool Consistency Dry and Hard Altagracia Weight 217 lb 8 oz Intake & Output: Intake & Output 05/27/19 05/28/19 05/28/19 21:59 05:59 13:59 Intake Total 500 Output Total 775 650 250 Balance -275 -650 -250 Weight 217 lb 8 oz Intake: Oral 500 Output: Drainage 0 0 Right Lower Leg 0 0 Void Amount 775 650 250 Other: Urine Appearance Clear Clear Urine Color Bright Yellow Dark Yellow Urine Odor Normal Stool Size Small Stool Color Brown Stool Consistency Dry and Hard Altagracia Incision: Yes healing Incision clean and dry: Yes Dressing: Yes clean Weight bearing status: full Neurological exam IM: Yes abnormal gait, Yes oriented X3 Extremities exam IM: Yes joint swelling, Yes Foot pink and warm - Periperhal Pulses Peripheral pulses: 1+: posterior tibialis (L), posterior tibialis (R) - Allied Health Allied health notes reviewed: PT (drain dc today) - Labs CBC & BMP: 05/28/19 04:08 05/28/19 04:08 Labs: 05/28/19 05/27/19 05/26/19 04:08 04:16 04:33 Hgb 8.7 L 8.8 L 8.0 L Hct 27.1 L 28.5 L 25.9 L 05/25/19 05/24/19 05/23/19 11:12 04:35 05:10 Hgb 8.4 L 8.7 L 9.6 L Hct 27.2 L 27.6 L 30.0 L
--- NOTE | 2019-05-28 09:23 | Internal Med Progress Note ---
Medical - PN: Subj Patient information: Note initiated : 05/28/19 at 9:20 am Service Date, if different from initiated Date: [] Patient: Peg Santoyo a 79 y/o F admitted on 05/22/19 for Abscess of the Right Ankle with Cellulitis. Chief Complaint: [] Interval history: Ms. Santoyo is a 79 year old F 79-year-old female presented to [place] ED on the for right foot swelling /pain and redness as well as fever. was also in A. fib RVR 150. She had a previous bimalleolar fracture of that right ankle in the past. She needed a debridement of that wound after she had had the original fracture repaired back in 2018. She has a chronic wound in that location. And has been followed by [facility] wound care [facility]. Case was discussed with Dr. Borja initially in the ER and patient was started IV antibiotics to follow-up with him early in the week. However it seems to be progressing a CT done today shows a large abscess with gas. She has been on a diltiazem drip which is been weaned down to 5 mg/h. ESR is 102 and CRP 33. White blood cell count 16 down from 20 the previous day. He is also being treated for UTI. Currently on vancomycin and Rocephin. Patient states it all started when she tripped a week ago. Since that time developed increasing redness swelling and tenderness. Reports fevers. 05/22 Slept well. No overnight events. The diltiazem drip 5 mg stopped last night but restarted about an hour ago for heart rates to the 110's. Transition to oral beta-kirby 05/23-patient doing well. No overnight events. No concerns per staff. JOESPH drain clotted blood. Dressing change ongoing. Continuing postoperative care per orthopedics. No fever chills. Intermittent nausea this morning. White count down from 3.6-9.2. 05/24-patient doing well. Intermittent dizzy with blood pressure around 106. Held antihypertensives today. Pradaxa on hold for another 24 hours in light of bloody drainage at surgery site. No overnight fever chills. Staph aureus on culture final sensitivity pending. On antibiotic coverage including Clinda/cefepime/vancomycin. 05/25-patient doing well. ongoing postoperative rehab. Intermittent A. fib requiring digoxin. Antihypertensives on hold. Systolic stable. Renal function stable. ID consulted. 05/26-persistent tachycardia. Start oral beta-kirby. Feels a lot better since previous day. Improved dizziness. Likely positional vertigo. Attempt vestibular rehab. No telemetry events. No anxiety. Wound culture staph aureus. ID recommends 4 weeks of cefazolin. White count down to 10.9 05/27- Patient doing a lot better. Improved RVR. Much alert. Tolerating diet. Dressing change this morning by orthopedics. Much improved redness swelling right lower extremity. Continue antibiotics as per ID recommendations. White count 13.7. Back on Pradaxa for stroke prophylaxis. Will likely transfer to SNF on Thursday. Continue aggressive PT OT/nutrition support - Constitutional Vitals: Vital Signs Temp Pulse Resp BP Pulse Ox 98.4 F 111 H 16 118/72 100 05/28/19 07:26 05/26/19 23:00 05/28/19 07:26 05/28/19 07:26 05/28/19 07:26 Period Temp Pulse Resp BP Sys/Ennis Pulse Ox Last 24 Hr 97.6 F-98.9 F 12-22 92-145/56-93 93-100 Intake and Output 05/27/19 05/28/19 05/28/19 21:59 05:59 13:59 Intake Total 500 Output Total 775 650 250 Balance -275 -650 -250 Weight 217 lb 8 oz Intake & Output: Intake & Output 05/27/19 05/28/19 05/28/19 21:59 05:59 13:59 Intake Total 500 Output Total 775 650 250 Balance -275 -650 -250 Weight 217 lb 8 oz Intake: Oral 500 Output: Drainage 0 0 Right Lower Leg 0 0 Void Amount 775 650 250 Other: Urine Appearance Clear Clear Urine Color Bright Yellow Dark Yellow Urine Odor Normal Stool Size Small Stool Color Brown Stool Consistency Dry and Hard [facility] - PN: Obj Da - Labs CBC & Chem 7: 05/28/19 04:08 05/28/19 04:08 Labs: Abnormal Lab Results 05/28/19 05/28/19 05/27/19 04:08 04:08 04:16 WBC 13.7 H RBC 2.90 L Hgb 8.7 L Hct 27.1 L MCHC RDW 15.1 H Plt Count 465 H Eosinophils % (Manual) RBC Morphology Abnorm A Hypochromasia Anisocytosis 1+ A Rouleaux BUN Glucose 107 H GGT 423 H 471 H Alkaline Phosphatase 183 H 198 H Albumin 3.1 L Albumin/Globulin Ratio 0.9 L Triglycerides 241 H 212 H 05/27/19 05/26/19 05/26/19 04:16 04:33 04:33 WBC RBC 3.00 L 2.71 L Hgb 8.8 L 8.0 L Hct 28.5 L 25.9 L MCHC 30.9 L 30.9 L RDW 15.2 H 15.5 H Plt Count Eosinophils % (Manual) 8 H RBC Morphology Abnorm A Hypochromasia Anisocytosis Few A Rouleaux Present A BUN 32 H Glucose 117 H GGT 493 H Alkaline Phosphatase 207 H Albumin 2.8 L Albumin/Globulin Ratio 0.8 L Triglycerides 223 H 05/25/19 05/25/19 11:12 11:12 WBC RBC 2.86 L Hgb 8.4 L Hct 27.2 L MCHC 30.9 L RDW 14.9 H Plt Count Eosinophils % (Manual) RBC Morphology Abnorm A Hypochromasia 1+ A Anisocytosis 1+ A Rouleaux BUN 25 H Glucose 122 H GGT 508 H Alkaline Phosphatase 208 H Albumin Albumin/Globulin Ratio Triglycerides 224 H Meds: Medications Acetaminophen (Tylenol) 650 mg PO Q6HP PRN PRN Reason: PAIN/FEVER > 101 Last Admin: 05/25/19 07:54 Dose: 650 mg Documented by: Albuterol/Ipratropium (Duoneb) 3 ml NEB Q4HP PRN PRN Reason: Shortness Of Breath Aspirin (Aspirin) 81 mg PO DAILY [facility] Last Admin: 05/27/19 07:59 Dose: 81 mg Documented by: Cefazolin Sodium (Ancef) 2 gm IV Q8H [facility] Last Admin: 05/28/19 06:11 Dose: 2 gm Documented by: Dabigatran (Pradaxa) 150 mg PO BID [facility] Last Admin: 05/27/19 21:03 Dose: 150 mg Documented by: Dextrose (Dextrose 50%) 0 ml IV UD PRN PRN Reason: Hypoglycemia Diagnostic Test (Pha) (Accu-Chek) 1 each FS ACHS [facility] Last Admin: 05/28/19 08:03 Dose: 1 each Documented by: Docusate Sodium (Colace) 100 mg PO BID [facility] Last Admin: 05/27/19 21:05 Dose: 100 mg Documented by: Folic Acid (Folic Acid) 1 mg PO DAILY [facility] Last Admin: 05/27/19 07:59 Dose: 1 mg Documented by: Gabapentin (Neurontin) 600 mg PO HS [facility] Last Admin: 05/27/19 21:04 Dose: 600 mg Documented by: Gabapentin (Neurontin) 400 mg PO TID@0800,1200,1600 [facility] Last Admin: 05/28/19 08:02 Dose: 400 mg Documented by: Glucose (Insta-Glucose) 15 gm PO PRN PRN PRN Reason: Hypoglycemia Heparin Sodium (Porcine) (Heparin Flush) 2 ml IV Q12 [facility] Last Admin: 05/27/19 21:05 Dose: 2 ml Documented by: Potassium Chloride 40 meq/ (Dextrose) 520 mls @ 130 mls/hr IV UD PRN PRN Reason: Potassium < 3 Magnesium Sulfate (Magnesium Sulfate) 2 gm in 50 mls @ 50 mls/hr IV UD PRN PRN Reason: Magnesium </= 1.6 Diltiazem HCl 125 mg/ Dextrose 125 mls @ 5 mls/hr IV Q12HP PRN; Protocol PRN Reason: Tachyarrhythmias Insulin Human Lispro (Humalog) 0 unit SQ ACHS [facility]; Protocol Last Admin: 05/28/19 08:04 Dose: Not Given Documented by: Lactobacillus Rhamnosus (Culturelle) 1 cap PO BID [facility] Last Admin: 05/27/19 21:04 Dose: 1 cap Documented by: Levothyroxine Sodium (Synthroid) 50 mcg PO ACB [facility] Last Admin: 05/28/19 08:02 Dose: 50 mcg Documented by: Melatonin (Melatonin 3mg Tablet) 3 mg PO [facility] Last Admin: 05/27/19 21:04 Dose: 3 mg Documented by: Metoclopramide HCl (Reglan) 5 mg PO TIDAC [facility] Last Admin: 05/28/19 08:02 Dose: 5 mg Documented by: Metoprolol Succinate (Toprol Xl) 100 mg PO DAILY [facility] Last Admin: 05/27/19 07:58 Dose: 100 mg Documented by: Metoprolol Tartrate (Lopressor) 5 mg IV Q2HP PRN PRN Reason: Tachyarrhythmias HR>110 Last Admin: 05/26/19 20:18 Dose: 5 mg Documented by: Nortriptyline HCl (Pamelor) 150 mg PO HS [facility] Last Admin: 05/27/19 21:03 Dose: 150 mg Documented by: Ondansetron HCl (Zofran) 4 mg IV Q4HP PRN PRN Reason: Nausea And Vomiting Last Admin: 05/26/19 12:04 Dose: 4 mg Documented by: Oxycodone/Acetaminophen (Percocet 5-325 Mg) 1 tab PO Q4HP PRN PRN Reason: PAIN LEVEL 3-6 Last Admin: 05/28/19 04:03 Dose: 1 tab Documented by: Polyethylene Glycol (Miralax) 17 gm PO DAILYP PRN PRN Reason: Constipation Last Admin: 05/27/19 21:03 Dose: 17 gm Documented by: Potassium Chloride (Kdur) 40 meq PO UD PRN PRN Reason: Potssium is 3-3.5 Potassium Chloride (Kdur) 40 meq PO UD PRN PRN Reason: Potassium < 3 Senna (Senokot) 2 tab PO DAILYP PRN PRN Reason: Constipation Last Admin: 05/27/19 07:58 Dose: 2 tab Documented by: Sodium Chloride (Saline Flush) 10 ml IV Q12 [facility] Last Admin: 05/27/19 21:05 Dose: 10 ml Documented by: Spironolactone (Aldactone) 12.5 mg PO DAILY [facility] Last Admin: 05/27/19 09:13 Dose: Not Given Documented by: Throat Lozenges (Cepacol) 1 lozenge PO PRN PRN PRN Reason: Sore Throat Medical - PN: A/P - Time Spent With Patient Total time spent is greater than 50% in coordination of care (as documented) at patient's floor/unit and/or counseling patient: 25 - 35 minutes - Narrative A/P Narrative: * Right ankle cellulitis/abscess noted on CT . status post I&D and hardware removal. MSSA on culture. On 4 weeks IV cefazolin as per ID recommendations * Chronic RLE wound: Continue management per wound care * A. fib RVR now rate controlled on metoprolol. Initially managed on diltiazem drip and digoxin load. Back on Pradaxa for CVA prophylaxis * Sepsis clinically resolved. * UTI: Resolved on antibiotic coverage * DM w/neuropathy: diet controlled * h/o systolic(45%)/diastolic CHF: * CKD III: At baseline creatinine 0.9 * Hypothyroidism-on home dose thyroxine * Dementia: Stable at baseline * Anxiety/depression: * Obesity: Continue directed therapies Plan * Continue 4 weeks cefazolin IV * Anticipate SNF transfer Thursday * Continue wound care per Dr. Guaman/orthopedics * PT OT nutrition support Medical - PN: Qual - VTE Deep Vein Thrombosis/Pulmonary Embolism Present on Admission: No
[2019-05-28] MEDS: DABIGATRAN ETEXILATE MESYLATE 75 MG CAPSULE PO SCH ×2 (10:34→21:00)
[2019-05-28] MEDS: METOPROLOL SUCCINATE 50 MG TAB.XL.24H PO SCH (10:34)
[2019-05-28] MEDS: FOLIC ACID 1 MG TABLET PO SCH (10:34)
[2019-05-28] MEDS: ASPIRIN 81 MG TAB.CHEW PO SCH (10:35)
[2019-05-28] MEDS: 0.9 % SODIUM CHLORIDE 10 ML SYRINGE IV SCH ×2 (10:35→21:01)
[2019-05-28] MEDS: DOCUSATE SODIUM 100 MG CAPSULE PO SCH ×2 (10:35→21:00)
[2019-05-28] MEDS: LACTOBACILLUS 1 CAPSULE PO SCH ×2 (10:35→21:00)
[2019-05-28] MEDS: SPIRONOLACTONE 25 MG TABLET PO SCH (10:35)
[2019-05-28] MEDS: NORTRIPTYLINE 25 MG CAPSULE PO SCH (21:00)
[2019-05-28] MEDS: MELATONIN 3 MG TABLET PO SCH (21:00)
[2019-05-28] MEDS: GABAPENTIN 300 MG CAPSULE PO SCH (21:00)
[2019-05-28] MEDS: POLYETHYLENE GLYCOL 3350 17 GM PACKET PO PRN (21:08)
[2019-05-29] MEDS: ceFAZolin 1 GM VIAL IV SCH ×3 (05:38→21:17)
[2019-05-29] MEDS: oxyCODONE/APAP 5/325MG TABLET PO PRN ×4 (06:10→21:12)
[2019-05-29 06:30] LABS: Hematocrit 25.4 % (34.1-44.9); Mean Cell Volume 94.8 fL (80.0-100.0); Mean Corpuscular HGB Conc 31.5 g/dL (31.0-36.0); Mean Platelet Volume 9.2 fL (7.4-10.4); Platelet Count 426 K/mcL (140-440); RBC 2.68 M/mcL (3.59-5.38); Red Cell Distribution Width 15.1 % (11.5-14.5); WBC 13.4 K/mcL (4.50-11.00)
[2019-05-29 06:53] LABS: ALT/SGPT 6 U/l (0-40); AST/SGOT 13 U/l (0-37); Albumin 3.1 gm/dL (3.2-5.2); Albumin/Globulin Ratio 1.1 (1.0-2.3); Alkaline Phosphatase 158 U/L (39-117); Bilirubin,Direct < 0.2 mg/dL (0.0-0.3); Bilirubin,Total < 0.2 mg/dL (0.0-1.0); Blood Urea Nitrogen 17 mg/dl (8-23); Calcium 8.7 mg/dl (8.6-10.4); Carbon Dioxide 27 mmol/L (22-30); Chloride 99 mmol/L (96-108); Globulin 2.9 gm/dL (2.2-3.7); Glomerular Filtration Rate 69; Glucose 99 mg/dL (70-105); Lactate Dehydrogenase 196 U/L (94-250); Phosphorous 3.3 mg/dL (2.7-4.5); Triglycerides 216 mg/dl (<150); Uric Acid 4.2 mg/dL (2.5-8.0)
[2019-05-29] MEDS: METOCLOPRAMIDE 10 MG TABLET PO SCH ×3 (07:42→17:29)
[2019-05-29] MEDS: INSULIN LISPRO 1 UNIT/0.01 ML UNIT SQ SCH ×3 (07:42→17:30)
[2019-05-29] MEDS: LEVOTHYROXINE 50 MCG TABLET PO SCH (07:43)
[2019-05-29 08:09] LABS: Anisocytosis 1+ (NONE SEEN); Band Neutrophils % 2 % (0-10); Eosinophils % (Manual) 5 % (0-7); Lymphocytes % 29 % (15-49); Monocytes % (Manual) 4 % (1-12); Platelet Estimate NORMAL (NORMAL); Polychromasia FEW (NONE SEEN); RBC Morphology ABNORM (NORMAL); Reactive Lymphocytes 1 % (0-2); Segmented Neutrophils % 59 % (38-78)
[2019-05-29] MEDS: DOCUSATE SODIUM 100 MG CAPSULE PO SCH ×2 (08:48→21:12)
[2019-05-29] MEDS: METOPROLOL SUCCINATE 50 MG TAB.XL.24H PO SCH (08:48)
[2019-05-29] MEDS: DABIGATRAN ETEXILATE MESYLATE 75 MG CAPSULE PO SCH ×2 (08:48→21:12)
[2019-05-29] MEDS: ASPIRIN 81 MG TAB.CHEW PO SCH (08:49)
[2019-05-29] MEDS: SPIRONOLACTONE 25 MG TABLET PO SCH (08:49)
[2019-05-29] MEDS: GABAPENTIN 400 MG CAPSULE PO SCH ×3 (08:49→15:27)
[2019-05-29] MEDS: 0.9 % SODIUM CHLORIDE 10 ML SYRINGE IV SCH ×2 (08:49→21:13)
[2019-05-29] MEDS: LACTOBACILLUS 1 CAPSULE PO SCH ×2 (08:49→21:10)
[2019-05-29] MEDS: FOLIC ACID 1 MG TABLET PO SCH (08:49)
--- NOTE | 2019-05-29 09:28 | Internal Med Progress Note ---
Medical - PN: Subj Patient information: Note initiated : 05/29/19 at 9:25 am Service Date, if different from initiated Date: [] Patient: Peg Santoyo a 79 y/o F admitted on 05/22/19 for Abscess of the Right Ankle with Cellulitis. Chief Complaint: [] Interval history: Ms. Santoyo is a 79 year old F 79-year-old female presented to [place] ED on the for right foot swelling /pain and redness as well as fever. was also in A. fib RVR 150. She had a previous bimalleolar fracture of that right ankle in the past. She needed a debridement of that wound after she had had the original fracture repaired back in 2018. She has a chronic wound in that location. And has been followed by [facility] wound care clinic. Case was discussed with Dr. Borja initially in the ER and patient was started IV antibiotics to follow-up with him early in the week. However it seems to be progressing a CT done today shows a large abscess with gas. She has been on a diltiazem drip which is been weaned down to 5 mg/h. ESR is 102 and CRP 33. White blood cell count 16 down from 20 the previous day. He is also being treated for UTI. Currently on vancomycin and Rocephin. Patient states it all started when she tripped a week ago. Since that time developed increasing redness swelling and tenderness. Reports fevers. 05/22 Slept well. No overnight events. The diltiazem drip 5 mg stopped last night but restarted about an hour ago for heart rates to the 110's. Transition to oral beta-kirby 05/23-patient doing well. No overnight events. No concerns per staff. JOESPH drain clotted blood. Dressing change ongoing. Continuing postoperative care per orthopedics. No fever chills. Intermittent nausea this morning. White count down from 3.6-9.2. 05/24-patient doing well. Intermittent dizzy with blood pressure around 106. Held antihypertensives today. Pradaxa on hold for another 24 hours in light of bloody drainage at surgery site. No overnight fever chills. Staph aureus on culture final sensitivity pending. On antibiotic coverage including Clinda/cefepime/vancomycin. 05/25-patient doing well. ongoing postoperative rehab. Intermittent A. fib requiring digoxin. Antihypertensives on hold. Systolic stable. Renal function stable. ID consulted. 05/26-persistent tachycardia. Start oral beta-kirby. Feels a lot better since previous day. Improved dizziness. Likely positional vertigo. Attempt vestibular rehab. No telemetry events. No anxiety. Wound culture staph aureus. ID recommends 4 weeks of cefazolin. White count down to 10.9 05/27- Patient doing a lot better. Improved RVR. Much alert. Tolerating diet. Dressing change this morning by orthopedics. Much improved redness swelling right lower extremity. Continue antibiotics as per ID recommendations. White count 13.7. Back on Pradaxa for stroke prophylaxis. Will likely transfer to SNF on Thursday. Continue aggressive PT OT/nutrition support 05/28-patient doing well. Able to transfer from bed to chair and ambulate. Ongoing dressing changes. Continuing antibiotic coverage as per ID recommendations. On home medications. No active concerns. Denies lightheadedness dizziness. No telemetry changes overnight - Constitutional Vitals: Vital Signs Temp Pulse Resp BP Pulse Ox 97.2 F 111 H 14 119/71 94 05/29/19 08:00 05/26/19 23:00 05/29/19 08:00 05/29/19 08:00 05/29/19 08:00 Period Temp Pulse Resp BP Sys/Ennis Pulse Ox Last 24 Hr 97.2 F-98.9 F 14-24 98-123/39-90 92-98 Intake and Output 05/28/19 05/29/19 05/29/19 21:59 05:59 13:59 Intake Total 120 Output Total 675 400 Balance -675 120 -400 Weight 217 lb 9.6 oz Intake & Output: Intake & Output 05/28/19 05/29/19 05/29/19 21:59 05:59 13:59 Intake Total 120 Output Total 675 400 Balance -675 120 -400 Weight 217 lb 9.6 oz Intake: Oral 120 Output: Void Amount 675 400 Other: Urine Appearance Clear Clear Urine Color Bright Yellow Bright Yellow Stool Size Moderate Small Stool Color Brown Stool Consistency Dry and Hard Dry and Hard Altagracia # Voids 1 General appearance: morbidly obese, no acute distress Exam: Alert oriented Nonlabored breathing No significant lymphedema Able to ambulate Nondistended abdomen Medical - PN: Obj Da - Labs CBC & Chem 7: 05/29/19 04:20 05/29/19 04:20 Labs: Abnormal Lab Results 05/29/19 05/29/19 05/28/19 04:20 04:20 04:08 WBC 13.4 H RBC 2.68 L Hgb 8.0 L Hct 25.4 L MCHC RDW 15.1 H Plt Count RBC Morphology Abnorm A Polychromasia Few A Anisocytosis 1+ A Rouleaux Glucose 107 H GGT 346 H 423 H Alkaline Phosphatase 158 H 183 H Albumin 3.1 L Albumin/Globulin Ratio Triglycerides 216 H 241 H 05/28/19 05/27/19 05/27/19 04:08 04:16 04:16 WBC 13.7 H RBC 2.90 L 3.00 L Hgb 8.7 L 8.8 L Hct 27.1 L 28.5 L MCHC 30.9 L RDW 15.1 H 15.2 H Plt Count 465 H RBC Morphology Abnorm A Abnorm A Polychromasia Anisocytosis 1+ A Rouleaux Present A Glucose GGT 471 H Alkaline Phosphatase 198 H Albumin 3.1 L Albumin/Globulin Ratio 0.9 L Triglycerides 212 H Meds: Medications Acetaminophen (Tylenol) 650 mg PO Q6HP PRN PRN Reason: PAIN/FEVER > 101 Last Admin: 05/25/19 07:54 Dose: 650 mg Documented by: Albuterol/Ipratropium (Duoneb) 3 ml NEB Q4HP PRN PRN Reason: Shortness Of Breath Aspirin (Aspirin) 81 mg PO DAILY [facility] Last Admin: 05/29/19 08:49 Dose: 81 mg Documented by: Cefazolin Sodium (Ancef) 2 gm IV Q8H [facility] Last Admin: 05/29/19 05:38 Dose: 2 gm Documented by: Dabigatran (Pradaxa) 150 mg PO BID [facility] Last Admin: 05/29/19 08:48 Dose: 150 mg Documented by: Dextrose (Dextrose 50%) 0 ml IV UD PRN PRN Reason: Hypoglycemia Diagnostic Test (Pha) (Accu-Chek) 1 each FS ACHS [facility] Last Admin: 05/29/19 07:42 Dose: 1 each Documented by: Docusate Sodium (Colace) 100 mg PO BID [facility] Last Admin: 05/29/19 08:48 Dose: 100 mg Documented by: Folic Acid (Folic Acid) 1 mg PO DAILY [facility] Last Admin: 05/29/19 08:49 Dose: 1 mg Documented by: Gabapentin (Neurontin) 600 mg PO HS [facility] Last Admin: 05/28/19 21:00 Dose: 600 mg Documented by: Gabapentin (Neurontin) 400 mg PO TID@0800,1200,1600 [facility] Last Admin: 05/29/19 08:49 Dose: 400 mg Documented by: Glucose (Insta-Glucose) 15 gm PO PRN PRN PRN Reason: Hypoglycemia Heparin Sodium (Porcine) (Heparin Flush) 2 ml IV Q12 [facility] Last Admin: 05/29/19 08:47 Dose: 2 ml Documented by: Potassium Chloride 40 meq/ (Dextrose) 520 mls @ 130 mls/hr IV UD PRN PRN Reason: Potassium < 3 Magnesium Sulfate (Magnesium Sulfate) 2 gm in 50 mls @ 50 mls/hr IV UD PRN PRN Reason: Magnesium </= 1.6 Diltiazem HCl 125 mg/ Dextrose 125 mls @ 5 mls/hr IV Q12HP PRN; Protocol PRN Reason: Tachyarrhythmias Insulin Human Lispro (Humalog) 0 unit SQ ACHS [facility]; Protocol Last Admin: 05/29/19 07:42 Dose: Not Given Documented by: Lactobacillus Rhamnosus (Culturelle) 1 cap PO BID [facility] Last Admin: 05/29/19 08:49 Dose: 1 cap Documented by: Levothyroxine Sodium (Synthroid) 50 mcg PO ACB [facility] Last Admin: 05/29/19 07:43 Dose: 50 mcg Documented by: Melatonin (Melatonin 3mg Tablet) 3 mg PO [facility] Last Admin: 05/28/19 21:00 Dose: 3 mg Documented by: Metoclopramide HCl (Reglan) 5 mg PO TIDAC [facility] Last Admin: 05/29/19 07:42 Dose: 5 mg Documented by: Metoprolol Succinate (Toprol Xl) 100 mg PO DAILY [facility] Last Admin: 05/29/19 08:48 Dose: 100 mg Documented by: Metoprolol Tartrate (Lopressor) 5 mg IV Q2HP PRN PRN Reason: Tachyarrhythmias HR>110 Last Admin: 05/26/19 20:18 Dose: 5 mg Documented by: Nortriptyline HCl (Pamelor) 150 mg PO [facility] Last Admin: 05/28/19 21:00 Dose: 150 mg Documented by: Ondansetron HCl (Zofran) 4 mg IV Q4HP PRN PRN Reason: Nausea And Vomiting Last Admin: 05/26/19 12:04 Dose: 4 mg Documented by: Oxycodone/Acetaminophen (Percocet 5-325 Mg) 1 tab PO Q4HP PRN PRN Reason: PAIN LEVEL 3-6 Last Admin: 05/29/19 06:10 Dose: 1 tab Documented by: Polyethylene Glycol (Miralax) 17 gm PO DAILYP PRN PRN Reason: Constipation Last Admin: 05/28/19 21:08 Dose: 17 gm Documented by: Potassium Chloride (Kdur) 40 meq PO UD PRN PRN Reason: Potssium is 3-3.5 Potassium Chloride (Kdur) 40 meq PO UD PRN PRN Reason: Potassium < 3 Senna (Senokot) 2 tab PO DAILYP PRN PRN Reason: Constipation Last Admin: 05/27/19 07:58 Dose: 2 tab Documented by: Sodium Chloride (Saline Flush) 10 ml IV Q12 [facility] Last Admin: 05/29/19 08:49 Dose: 10 ml Documented by: Spironolactone (Aldactone) 12.5 mg PO DAILY [facility] Last Admin: 05/29/19 08:49 Dose: Not Given Documented by: Throat Lozenges (Cepacol) 1 lozenge PO PRN PRN PRN Reason: Sore Throat Medical - PN: A/P - Time Spent With Patient Total time spent is greater than 50% in coordination of care (as documented) at patient's floor/unit and/or counseling patient: 25 - 35 minutes - Narrative A/P Narrative: * Right ankle cellulitis/abscess on CT . status post I&D and hardware removal by orthopedics. MSSA on culture. On 4 weeks IV cefazolin as per ID recommendations. PICC line placed * Chronic RLE wound: Continue management per wound care * A. fib RVR now rate controlled on metoprolol. Initially managed on diltiazem drip and digoxin load. Back on Pradaxa for CVA prophylaxis * Sepsis clinically resolved. * UTI: Resolved on antibiotic coverage * DM w/neuropathy: diet controlled * h/o systolic(45%)/diastolic CHF: * CKD III: At baseline creatinine 0.9 * Hypothyroidism-on home dose thyroxine * Dementia: Stable at baseline * Anxiety/depression: * Obesity: Continue directed therapies Plan * Continue 4 weeks cefazolin IV * PICC line care * Anticipate SNF transfer Thursday * Continue wound care per Dr. Guaman/orthopedics * PT OT nutrition support * Pre-existing medical condition management on home medications as above Medical - PN: Qual - VTE Deep Vein Thrombosis/Pulmonary Embolism Present on Admission: No
[2019-05-29] MEDS: GABAPENTIN 300 MG CAPSULE PO SCH (21:10)
[2019-05-29] MEDS: NORTRIPTYLINE 25 MG CAPSULE PO SCH (21:11)
[2019-05-29] MEDS: MELATONIN 3 MG TABLET PO SCH (21:12)
[2019-05-30] MEDS: oxyCODONE/APAP 5/325MG TABLET PO PRN ×2 (04:26→10:04)
[2019-05-30] MEDS: ceFAZolin 1 GM VIAL IV SCH (05:12)
--- NOTE | 2019-05-30 09:07 | Discharge Summary ---
Medical - DS: Prov Patient information: Note initiated : 05/30/19 at 9:05 am Service Date, if different from initiated Date: [] Patient: Peg Santoyo 79 y/o F admitted on 05/22/19 for Abscess of the Right Ankle with Cellulitis. Chief Complaint: [] Date of admission: 05/22/19 19:35 Discharge date: 05/30/19 Primary care physician: Lauren Casas MD Consults: 05/22/19 17:05 Consult to Physician [CONS] Routine Comment: Consulting Provider: Moshe Borja Reason For Exam: Physician to Consult 05/22/19 19:55 Consult to Physician [CONS] Routine Comment: Consulting Provider: Seb Guaman Reason For Exam: Physician to Consult 05/26/19 09:18 Consult to Physician [CONS] Routine Comment: Consulting Provider: Gomez Renee Reason For Exam: Physician to Consult Medical - DS: Meds - Discharge Medications Prescriptions: ceFAZolin [Ancef] 2 gm IV Q8H 38 Days vial Prescription Printed Active and Home Medications: Home Medications Acetaminophen [Shake That Ache] 500 mg PO Q4HP PRN 11/10/17 [History Confirmed 05/22/19 Last Taken 11/07/17] Aspirin [Aspirin EC] 81 mg PO DAILY 11/10/17 [History Confirmed 05/22/19 Last Taken 11/10/17] Benzonatate [Tessalon] 100 mg PO Q6HP PRN 11/10/17 [History Confirmed 05/22/19 Last Taken Unknown] Cholecalciferol (Vitamin D3) [Vitamin D3] 2,000 unit PO QAM 11/10/17 [History Confirmed 05/22/19 Last Taken 11/10/17] Cyanocobalamin (Vitamin B-12) [Vitamin B-12] 1,000 mcg SL DAILY 11/10/17 [History Confirmed 05/22/19 Last Taken 11/10/17] Dabigatran Etexilate Mesylate [Pradaxa] 150 mg PO BID 11/10/17 [History Confirmed 05/22/19 Last Taken 11/10/17] Docusate Sodium [Colace] 100 mg PO QAM 11/10/17 [History Confirmed 05/22/19 Last Taken 11/10/17] Ferrous Sulfate [Iron] 325 mg PO DAILY 11/10/17 [History Confirmed 05/22/19 Last Taken 11/10/17] Folic Acid 1 mg PO DAILY 11/10/17 [History Confirmed 05/22/19 Last Taken 11/10/17] Gabapentin [Neurontin] 2 capsule PO HS 11/10/17 [History Confirmed 05/22/19 Last Taken 11/09/17] Inulin [Child's Fiber Select Gummies] 1.5 gm PO QDAY 11/10/17 [History Confirmed 05/22/19 Last Taken 11/10/17] Loperamide [Imodium] 2 mg PO PRN PRN 11/10/17 [History Confirmed 05/22/19 Last Taken Unknown] Magnesium Hydroxide [Milk of Magnesia] 30 ml PO DAILYP PRN 11/10/17 [History Confirmed 05/22/19 Last Taken Unknown] Melatonin [Melatin] 3 mg PO HS 11/10/17 [History Confirmed 05/22/19 Last Taken 11/09/17] Metoclopramide HCl [Metoclopramide HCl Odt] 5 mg PO ACHS 11/10/17 [History Confirmed 05/22/19 Last Taken 11/10/17] Metoprolol Succinate [Toprol Xl] 25 mg PO DAILY 11/10/17 [History Confirmed 05/22/19 Last Taken 11/10/17] Metoprolol Succinate [Toprol Xl] 100 mg PO QDAY 11/10/17 [History Confirmed 05/22/19 Last Taken 11/10/17] Nortriptyline HCl [Pamelor] 150 mg PO HS 11/10/17 [History Confirmed 05/22/19 Last Taken 11/09/17] Polyethylene Glycol 3350 [Miralax] 17 gm PO Q48 11/10/17 [History Confirmed 05/22/19 Last Taken 11/09/17] Spironolactone [Aldactone] 0.5 tab PO DAILY 11/10/17 [History Confirmed 05/22/19 Last Taken 11/10/17] Vitamin E (Dl,Tocopheryl Acet) [Vitamin E] 200 unit PO DAILY 11/10/17 [History Confirmed 05/22/19 Last Taken 11/10/17] Eucalyptus/Menthol [Cough Drops] 1 dose PO PRN PRN 05/22/19 [History Confirmed 05/22/19 Last Taken Unknown] Fluconazole [Diflucan] 150 mg PO DAILY PRN 05/22/19 [History Confirmed 05/22/19 Last Taken Unknown] Furosemide [Lasix] 1 tab PO DAILY 05/22/19 [History Confirmed 05/22/19 Last Taken Unknown] Gabapentin [Neurontin] 1 capsule PO TID 05/22/19 [History Confirmed 05/22/19 Last Taken Unknown] Lactobacillus [Culturelle] 1 cap PO DAILY 05/22/19 [History Confirmed 05/22/19 Last Taken Unknown] Levothyroxine [Synthroid] 50 mcg PO DAILY 05/22/19 [History Confirmed 05/22/19 Last Taken Unknown] Nystatin 1 dose TOPICAL BID 05/22/19 [History Confirmed 05/22/19 Last Taken Unknown] Potassium Chloride [Klor-Con 10] 1 tab PO DAILY 05/22/19 [History Confirmed 05/22/19 Last Taken Unknown] guaiFENesin [Robitussin] 15 ml PO Q6HP PRN 05/22/19 [History Confirmed 05/22/19 Last Taken Unknown] ceFAZolin [Ancef] 2 gm IV Q8H 38 Days vial 05/30/19 [Rx Last Taken Unknown] Medical - DS: Hosp Hospital Course: Discharge diagnosis * Right ankle cellulitis/abscess on CT . status post I&D and hardware removal by orthopedics. MSSA on culture. On 4 weeks IV cefazolin as per ID recommendations through 06/20/2019. PICC line placed * Chronic RLE wound: Continue management per wound care recommendations * A. fib RVR now rate controlled on metoprolol. Initially managed on diltiazem drip and digoxin load. Back on Pradaxa for CVA prophylaxis * Sepsis clinically resolved. * UTI: Resolved on antibiotic coverage * DM w/neuropathy: diet controlled * h/o systolic(45%)/diastolic CHF: * CKD III: At baseline creatinine 0.9 * Hypothyroidism-on home dose thyroxine * Dementia: Stable at baseline * Anxiety/depression: * Obesity: Continue directed therapies Brief hospital course Ms. Santoyo is a 79 year old F 79-year-old female presented to [place] ED on the 3rd for right foot swelling /pain and redness as well as fever. was also in A. fib RVR 150. She had a previous bimalleolar fracture of that right ankle in the past. She needed a debridement of that wound after she had had the original fracture repaired back in 2018. She has a chronic wound in that location. And has been followed by [facility] wound care clinic. Case was discussed with Dr. Borja initially in the ER and patient was started IV antibiotics to follow-up with him early in the week. However it seems to be progressing a CT done today shows a large abscess with gas. She has been on a diltiazem drip which is been weaned down to 5 mg/h. ESR is 102 and CRP 33. White blood cell count 16 down from 20 the previous day. He is also being treated for UTI. Currently on vancomycin and Rocephin. Patient states it all started when she tripped a week ago. Since that time developed increasing redness swelling and tenderness. Reports fevers. 05/22 Slept well. No overnight events. The diltiazem drip 5 mg stopped last night but restarted about an hour ago for heart rates to the 110's. Transition to oral beta-kirby 05/23-patient doing well. No overnight events. No concerns per staff. JOESPH drain clotted blood. Dressing change ongoing. Continuing postoperative care per orthopedics. No fever chills. Intermittent nausea this morning. White count down from 3.6-9.2. 05/24-patient doing well. Intermittent dizzy with blood pressure around 106. Hel d antihypertensives today. Pradaxa on hold for another 24 hours in light of bloody drainage at surgery site. No overnight fever chills. Staph aureus on culture final sensitivity pending. On antibiotic coverage including Clinda/cefepime/vancomycin. 05/25-patient doing well. ongoing postoperative rehab. Intermittent A. fib requiring digoxin. Antihypertensives on hold. Systolic stable. Renal function stable. ID consulted. 05/26-persistent tachycardia. Start oral beta-kirby. Feels a lot better since previous day. Improved dizziness. Likely positional vertigo. Attempt vestibular rehab. No telemetry events. No anxiety. Wound culture staph aureus. ID recommends 4 weeks of cefazolin. White count down to 10.9 05/27- Patient doing a lot better. Improved RVR. Much alert. Tolerating diet. Dressing change this morning by orthopedics. Much improved redness swelling right lower extremity. Continue antibiotics as per ID recommendations. White count 13.7. Back on Pradaxa for stroke prophylaxis. Will likely transfer to SNF on Thursday. Continue aggressive PT OT/nutrition support 05/28-patient doing well. Able to transfer from bed to chair and ambulate. Ongoing dressing changes. Continuing antibiotic coverage as per ID recommendations. On home medications. No active concerns. Denies lightheadedness dizziness. No telemetry changes overnight 05/29-patient doing well. No overnight events. No concerns per staff. No fever chills nausea vomiting. Ongoing wound care. Discharging to [facility] for continued postoperative care/antibiotics/PT OT Discharge diagnosis: . - Time Spent with Patient Total time spent providing and/or coordinating discharge services: Greater than 30 minutes Medical - DS: Exam - Constitutional Vitals: Vital Signs Temp Resp BP Pulse Ox 05/30/19 06:01 13 117/62 96 05/30/19 04:00 97.9 F 16 115/70 97 05/30/19 02:01 13 105/55 94 05/30/19 02:00 94 05/30/19 00:01 99.0 F 13 128/82 91 05/29/19 22:01 99.9 F H 22 148/90 99 05/29/19 20:00 99.3 F H 18 139/80 99 05/29/19 18:04 97.9 F 16 120/65 92 05/29/19 16:28 131/73 05/29/19 16:00 97.9 F 16 131/73 97 05/29/19 14:00 97 F 16 119/75 98 05/29/19 12:00 97.8 F 20 110/68 96 05/29/19 10:00 18 115/69 96 Intake and Output 05/29/19 05/30/19 05/30/19 21:59 05:59 13:59 Intake Total 240 240 Output Total 700 Balance 240 -460 Intake: Oral 240 240 Output: Void Amount 700 Other: Urine Appearance Clear Urine Color Bright Yellow Stool Size Copious Stool Color Brown Stool Consistency Formed # Voids 1 Weight 218 lb 3.2 oz Medical - DS: A/P - Patient/Caregiver Discharge Instructions Activity: as per physical therapy, increase activity as tolerated Diet: Renal/Consistent Carbs Additional Instructions: Follow-up PCP in 5 days Follow-up orthopedics as advised Continue Postoperative care/weightbearing status/ wound care and dressing change as per orthopedics I recommend SNF physician to check CBC BMP UA as a posthospital follow-up in 1 week. Antibiotics IV cefazolin 8 hourly until 06/20/2019 Continue aggressive bowel regimen to prevent constipation Continue fall precautions Continue aggressive PT OT evaluation and treatment at SNF. ST eval and treatment if indicated High protein calorie supplements All meals on chair sitting upright at 90 degrees to prevent aspiration Return to ER if worsening fever chills shortness of breath, diarrhea, bleeding Review risk and side effect profile of medications including antibiotics. Side effect may include mild to severe reaction including rash, diarrhea, cdiff and even which can be prevented by close follow-up with PCP and monitoring for side effects Refrain from smoking and alcohol Continue diet and activity as advised Discussed importance of medication adherence Please review medication list with patient prior to discharge Please schedule follow-up with PCP/Providers prior to discharge and provide printouts ID recommendations - PICC line care - Continue IV Cefazolin 2 gm q8 hrs. Tentative stop date of 06/20/19 - f/u in ID clinic in 4 weeks - f/u labs as OP: CBC, BMP weekly ESR, CRP every other week Prescriptions: ceFAZolin [Ancef] 2 gm IV Q8H 38 Days vial Prescription Printed Other Amb Orders: Wound Care Instructions Location: None Selected - Follow up Plan Disposition: Xfer [facility] Prognosis: Fair Rehab Potential: Fair I certify that the patient requires SNF services: Yes Overall status at discharge: patient is progressing back to baseline Medical - DS: Qual - VTE Deep Vein Thrombosis/Pulmonary Embolism Present on Admission: No
[2019-05-30] MEDS: METOCLOPRAMIDE 10 MG TABLET PO SCH (09:19)
[2019-05-30] MEDS: DABIGATRAN ETEXILATE MESYLATE 75 MG CAPSULE PO SCH (09:19)
[2019-05-30] MEDS: METOPROLOL SUCCINATE 50 MG TAB.XL.24H PO SCH (09:19)
[2019-05-30] MEDS: SPIRONOLACTONE 25 MG TABLET PO SCH (09:20)
[2019-05-30] MEDS: LACTOBACILLUS 1 CAPSULE PO SCH (09:22)
[2019-05-30] MEDS: GABAPENTIN 400 MG CAPSULE PO SCH (09:23)
[2019-05-30] MEDS: FOLIC ACID 1 MG TABLET PO SCH (09:23)
[2019-05-30] MEDS: LEVOTHYROXINE 50 MCG TABLET PO SCH (09:23)
[2019-05-30] MEDS: DOCUSATE SODIUM 100 MG CAPSULE PO SCH (09:24)
[2019-05-30] MEDS: ASPIRIN 81 MG TAB.CHEW PO SCH (09:25)
[2019-05-30] MEDS: 0.9 % SODIUM CHLORIDE 10 ML SYRINGE IV SCH (09:26)
== END 2019-05-30 12:03 | DRG 495 ==
LOC: ICU 19:35
PROVIDERS: ADMIT Internal Medicine; ATTEND Internal Medicine